=== PATIENT | male | born 1950 | race Caucasian/White ===

== ENCOUNTER 2019-12-09 09:59 | Inpatient (IN) | payer MEDICARE ==
[2019-12-09 10:49] LABS: Basophils % (A) 0 %; Eosinophils # (A) 0.1 k/uL (0-0.7); Eosinophils % (A) 1 %; HCT 47.2 % (39.0-53.0); HGB 15.6 gm/dL (13.0-17.5); Lymphocytes % (A) 20 %; MCH 32.2 pg (25.0-35.0); MCHC 33.1 g/dL (31.0-37.0); MCV 97.3 fL (80.0-100.0); Monocytes % (A) 10 %; Neutrophils # (A) 6.5 k/uL (1.3-7.7); Neutrophils % (A) 65 %; Platelet Count 196 k/uL (150-450); RBC 4.85 m/uL (4.30-5.90); RDW 12.9 % (11.5-15.5)
--- NOTE | 2019-12-09 10:53 | XR ---
EXAMINATION TYPE: XR chest 2V DATE OF EXAM: 12/09/2019 COMPARISON: NONE HISTORY: Shortness of breath TECHNIQUE: Frontal and lateral views of the chest are obtained. FINDINGS: Scattered senescent parenchymal changes noted. Hyperinflation compatible with COPD. No evidence for infiltrate. No evidence for atelectasis. Heart size is stable. Mediastinal structures are stable and grossly unremarkable. No evidence for hilar prominence. Degenerative changes dorsal spine. IMPRESSION: 1. No evidence for acute pulmonary disease.
[2019-12-09] MEDS ORDERED: DILTIAZEM DRIP BOLUS FROM BAG 1 MG SOLN IV ONE (11:01)
--- NOTE | 2019-12-09 11:03 | ED ---
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 Patient states that for the past 3 weeks has had palpitations and sensation of his heart is racing. He states he's progressively become more weak overall denies a focalized weakness. Patient states that he has also progressively gotten more short of breath. He states he is short of breath on exertion.. Denies leg swelling but states that his last EF was 20%. Patient denies use of digoxin, admits to pacemaker in place, ACID. Patient denies chest pain, pain with deep inspiration or history of DVT/PE. Patient has no additional complaints. - Related Data Home Medications Medication Instructions Recorded Confirmed Amiodarone [Cordarone] 200 mg PO DAILY 12/09/19 12/09/19 Aspirin EC [Ecotrin Low Dose] 81 mg PO DAILY 12/09/19 12/09/19 Aspirin EC [Ecotrin] 650 mg PO DAILY 12/09/19 12/09/19 Atorvastatin [Lipitor] 20 mg PO DAILY 12/09/19 12/09/19 Furosemide [Lasix] 40 mg PO DAILY 12/09/19 12/09/19 Potassium Chloride ER [K-Dur 10] 10 meq PO DAILY 12/09/19 12/09/19 carvediloL [Coreg] 3.125 mg PO DAILY 12/09/19 12/09/19 lisinopriL [Zestril] 5 mg PO DAILY 12/09/19 12/09/19 Allergies Allergy/AdvReac Type Severity Reaction Status Date / Time No Known Allergies Allergy Verified 12/09/19 11:17 Review of Systems ROS Statement: Those systems with pertinent positive or pertinent negative responses have been documented in the HPI. ROS Other: All systems not noted in ROS Statement are negative. Past Medical History Past Medical History: Coronary Artery Disease (CAD), Chest Pain / Angina Additional Past Medical History / Comment(s): afib History of Any Multi-Drug Resistant Organisms: None Reported Additional Past Surgical History / Comment(s): heart valve replacement, pacemaker, defibrilator Smoking Status: Never smoker Past Alcohol Use History: Occasional Past Drug Use History: None Reported General Exam - General Exam Comments Initial Comments: General: The patient is awake and alert Eye: +3 mm pupils are equal, round and reactive to light, extra-ocular movements are intact. No nystagmus. There is normal conjunctiva bilaterally. No signs of icterus. Ears, nose, mouth and throat: There are moist mucous membranes and no oral lesions. Neck: The neck is supple, there is no tenderness or JVD. Cardiovascular: There is a regular rate and rhythm. No murmur, rub or gallop is appreciated. Respiratory: Respirations are non-labored, breath sounds are equal. Some rales appreciated at bases. No wheezes, stridor,or rhonchi. Gastrointestinal: Soft, non-distended, non-tender abdomen without masses or organomegaly noted. There is no rebound or guarding present. Musculoskeletal: Normal ROM, no tenderness. Strength 5/5. Sensation intact. Radial and DP pulses equal bilaterally 2+. Neurological: A&O x 3. CN II-XII intact, There are no obvious motor or sensory deficits. Coordination appears grossly intact. Speech is normal. Skin: Skin is warm and dry and no rashes or lesions are noted. No LE edema, or calf pain/swelling Psychiatric: Cooperative, appropriate mood & affect, normal judgment. Limitations: no limitations Course Vital Signs 12/09/19 12/09/19 12/09/19 10:01 10:32 11:22 Temperature 95.0 F L Pulse Rate 123 H 114 H Respiratory 20 20 14 Rate Blood Pressure 108/72 105/72 O2 Sat by Pulse 99 98 Oximetry Medical Decision Making - Medical Decision Making Some effusions noted on CTA no pulmonary embolism. Patient atrial flutter, history of paroxysmal atrial fibrillation patient refuses take anti-quick ablation therapy aside from aspirin. Patient evaluated by cardiology in the emergency department Dr. Andres who states that he will place all further orders. Dr. Andres initated Lasix given patient's elevated BNP and effusions on CT. He altered anticoagulation orders to transition to PO eliquis. One dose of heparin. He will monitor patient closely for further management--no further recommendations at this time. Renean will be admitted to Dr. Zelaya who also evaluated the patient in the ER at 1:20PM. Case discussed with Wesley teixeira who was agreeable to care plan and admission. EKG has no acute findinsg of ischemia however troponin elevated thought to be causes by demand. - Lab Data Result diagrams: 12/09/19 10:31 12/09/19 10:31 Lab Results 12/09/19 12/09/19 12/09/19 Range/Units 10:31 10: 10:31 WBC 10.0 (3.8-10.6) k/uL RBC 4.85 (4.30-5.90) m/uL Hgb 15.6 (13.0-17.5) gm/dL Hct 47.2 (39.0-53.0) % MCV 97.3 (80.0-100.0) fL MCH 32.2 (25.0-35.0) pg MCHC 33.1 (31.0-37.0) g/dL RDW 12.9 (11.5-15.5) % Plt Count 196 (150-450) k/uL Neutrophils % 65 % Lymphocytes % 20 % Monocytes % 10 % Eosinophils % 1 % Basophils % 0 % Neutrophils # 6.5 (1.3-7.7) k/uL Lymphocytes # 2.0 (1.0-4.8) k/uL Monocytes # 1.0 (0-1.0) k/uL Eosinophils # 0.1 (0-0.7) k/uL Basophils # 0.0 (0-0.2) k/uL PT 10.0 (9.0-12.0) sec INR 1.0 (<1.2) APTT 21.4 L (22.0-30.0) sec D-Dimer (<0.60) mg/L FEU Sodium 132 L (137-145) mmol/L Potassium 4.6 (3.5-5.1) mmol/L Chloride 104 (98-107) mmol/L Carbon Dioxide 19 L (22-30) mmol/L Anion Gap 9 mmol/L BUN 32 H (9-20) mg/dL Creatinine 1.40 H (0.66-1.25) mg/dL Est GFR (CKD-EPI)AfAm 60 (>60 ml/min/1.73 sqM) Est GFR (CKD-EPI)NonAf 51 (>60 ml/min/1.73 sqM) Glucose 116 H (74-99) mg/dL Plasma Lactic Acid Myke (0.7-2.0) mmol/L Calcium 8.9 (8.4-10.2) mg/dL Magnesium 2.1 (1.6-2.3) mg/dL Total Bilirubin 0.6 (0.2-1.3) mg/dL AST 60 H (17-59) U/L ALT 82 H (4-49) U/L Alkaline Phosphatase 55 (38-126) U/L Troponin I (0.000-0.034) ng/mL NT-Pro-B Natriuret Pep pg/mL Total Protein 6.2 L (6.3-8.2) g/dL Albumin 3.9 (3.5-5.0) g/dL TSH (0.465-4.680) mIU/L 12/09/19 12/09/19 12/09/19 Range/Units 10:31 10:31 10:31 WBC (3.8-10.6) k/uL RBC (4.30-5.90) m/uL Hgb (13.0-17.5) gm/dL Hct (39.0-53.0) % MCV (80.0-100.0) fL MCH (25.0-35.0) pg MCHC (31.0-37.0) g/dL RDW (11.5-15.5) % Plt Count (150-450) k/uL Neutrophils % % Lymphocytes % % Monocytes % % Eosinophils % % Basophils % % Neutrophils # (1.3-7.7) k/uL Lymphocytes # (1.0-4.8) k/uL Monocytes # (0-1.0) k/uL Eosinophils # (0-0.7) k/uL Basophils # (0-0.2) k/uL PT (9.0-12.0) sec INR (<1.2) APTT (22.0-30.0) sec D-Dimer 1.06 H (<0.60) mg/L FEU Sodium (137-145) mmol/L Potassium (3.5-5.1) mmol/L Chloride (98-107) mmol/L Carbon Dioxide (22-30) mmol/L Anion Gap mmol/L BUN (9-20) mg/dL Creatinine (0.66-1.25) mg/dL Est GFR (CKD-EPI)AfAm (>60 ml/min/1.73 sqM) Est GFR (CKD-EPI)NonAf (>60 ml/min/1.73 sqM) Glucose (74-99) mg/dL Plasma Lactic Acid Myke 1.4 (0.7-2.0) mmol/L Calcium (8.4-10.2) mg/dL Magnesium (1.6-2.3) mg/dL Total Bilirubin (0.2-1.3) mg/dL AST (17-59) U/L ALT (4-49) U/L Alkaline Phosphatase (38-126) U/L Troponin I 0.068 H* (0.000-0.034) ng/mL NT-Pro-B Natriuret Pep pg/mL Total Protein (6.3-8.2) g/dL Albumin (3.5-5.0) g/dL TSH (0.465-4.680) mIU/L 12/09/19 12/09/19 Range/Units 10:31 10:31 WBC (3.8-10.6) k/uL RBC (4.30-5.90) m/uL Hgb (13.0-17.5) gm/dL Hct (39.0-53.0) % MCV (80.0-100.0) fL MCH (25.0-35.0) pg MCHC (31.0-37.0) g/dL RDW (11.5-15.5) % Plt Count (150-450) k/uL Neutrophils % % Lymphocytes % % Monocytes % % Eosinophils % % Basophils % % Neutrophils # (1.3-7.7) k/uL Lymphocytes # (1.0-4.8) k/uL Monocytes # (0-1.0) k/uL Eosinophils # (0-0.7) k/uL Basophils # (0-0.2) k/uL PT (9.0-12.0) sec INR (<1.2) APTT (22.0-30.0) sec D-Dimer (<0.60) mg/L FEU Sodium (137-145) mmol/L Potassium (3.5-5.1) mmol/L Chloride (98-107) mmol/L Carbon Dioxide (22-30) mmol/L Anion Gap mmol/L BUN (9-20) mg/dL Creatinine (0.66-1.25) mg/dL Est GFR (CKD-EPI)AfAm (>60 ml/min/1.73 sqM) Est GFR (CKD-EPI)NonAf (>60 ml/min/1.73 sqM) Glucose (74-99) mg/dL Plasma Lactic Acid Myke (0.7-2.0) mmol/L Calcium (8.4-10.2) mg/dL Magnesium (1.6-2.3) mg/dL Total Bilirubin (0.2-1.3) mg/dL AST (17-59) U/L ALT (4-49) U/L Alkaline Phosphatase (38-126) U/L Troponin I (0.000-0.034) ng/mL NT-Pro-B Natriuret Pep 4750 pg/mL Total Protein (6.3-8.2) g/dL Albumin (3.5-5.0) g/dL TSH 4.680 (0.465-4.680) mIU/L Disposition Clinical Impression: Dyspnea, Elevated brain natriuretic peptide (BNP) level, Atrial flutter, CHF (congestive heart failure) Disposition: ADMITTED IP TO THIS HOSP Condition: Stable Is patient prescribed a controlled substance at d/c from ED?: No Time of Disposition: 13:02 Decision to Admit Reason: Admit from EC Decision Date: 12/09/19 Decision Time: 13:02
[2019-12-09 11:16] LABS: Albumin 3.9 g/dL (3.5-5.0); Calcium 8.9 mg/dL (8.4-10.2); Magnesium 2.1 mg/dL (1.6-2.3); Potassium 4.6 mmol/L (3.5-5.1); Total Bilirubin 0.6 mg/dL (0.2-1.3); Total Protein 6.2 g/dL (6.3-8.2)
[2019-12-09] MEDS: DILTIAZEM 125 MG in SODIUM CHLORIDE 0.9% 100 ML IV SCH (11:25)
[2019-12-09 11:30] LABS: Partial Thromboplastin Time 21.4 sec (22.0-30.0)
[2019-12-09] MEDS ORDERED: HEPARIN SODIUM,PORCINE 5,000 UNIT/ML 1 ML VIAL IV ONE (12:11)
[2019-12-09] MEDS ORDERED: HEPARIN SODIUM,PORCINE 5,000 UNIT/ML 1 ML VIAL IV PRN (12:11)
[2019-12-09] MEDS ORDERED: HEPARIN SOD,PORK IN 0.45% NACL 25,000 UNIT in 0.45% NACL 1 250ML.BAG IV SCH (12:15)
--- NOTE | 2019-12-09 12:33 | CT ---
CT CHEST FOR PULMONARY EMBOLISM. EXAMINATION TYPE: CT chest angio for PE DATE OF EXAM: 12/09/2019 INDICATION: Increasing SOB for one week CT DLP: 632.8 mGycm, Automated exposure control for dose reduction was used. CONTRAST: Patient injected with 100 ml mL of Isovue 370. COMPARISON: None TECHNIQUE: CT of the chest is performed on a spiral scan at 2 mm thick sections. Study is performed with intravenous contrast timed for evaluation for pulmonary embolism. This will limit additional po rtions of the evaluation. 3-D MIP images reconstructed by the technologist are reviewed on the compu ter in the coronal and sagittal planes. FINDINGS: No persistent filling defects are evident to suggest an acute pulmonary embolism. No mediastinal or hilar adenopathy enlarged by CT criteria is evident. The ascending aorta diameter at the level of the main pulmonary artery is 3.9 cm. The main pulmonary artery diameter at the bifur cation is 3.3 cm. Some reflux in the proximal inferior vena cava is noted. Small right pleural effusion is present. Minimal left pleural effusion is present. Some compressive a telectasis is likely present at the right lung base. A 1 cm area of pneumonitis is in the posterior medial right lung base. Series [address] section through the upper abdomen are unremarkable. IMPRESSIONS: 1. No acute pulmonary embolism 2. Small right and minimal left pleural effusions. Some adjacent atelectasis may be present. 3. Some mild pneumonitis change may be in the posterior right lung. Follow-up exam can be performed t o evaluate for resolution.
[2019-12-09] MEDS ORDERED: NALOXONE 0.4 MG/ML 1 ML VIAL IV PRN (12:59)
[2019-12-09] MEDS: SODIUM CHLORIDE 0.9% 500 ML 500 ML IV SCH (13:03)
[2019-12-09] MEDS: FUROSEMIDE 10 MG/ML 4 ML VIAL IV SCH ×2 (13:04→20:32)
[2019-12-09] MEDS: APIXABAN 5 MG TAB PO SCH ×2 (13:04→20:32)
[2019-12-09] MEDS: carvediloL 6.25 MG TAB PO SCH (17:27)
--- NOTE | 2019-12-09 18:39 | CONS ---
CONSULTATION Mr. Falcon is a 69-year-old male with a known history of severe nonischemic cardiomyopathy, status post bioprosthetic aortic valve replacement, an ICD implantation as well history of paroxysmal atrial fibrillation, who has been followed in the past by Dr. Lombardo. He was seen in our office about 2 months ago and for the last week or so, he has been complaining of progressive dyspnea on exertion with orthopnea and PND. He came into the office today and had an echocardiogram that revealed a severely impaired left ventricular systolic function. He was in atrial flutter. In view of that, he was referred to the emergency room. The patient was evaluated in the emergency room. He has been complaining of the progressive dyspnea as noted, much worse than his baseline. He did not note any peripheral edema. He had clear PND orthopnea. He had no fever. He has occasional cough when he lays flat. He has no chest discomfort. He feels some palpitation, but he is not aware of the arrhythmia. He denies any dizziness or syncope. He had an ICD placed in the past and ejection fraction was in the range of 20% in the past. He was in sinus mechanism in September of this year. His coronary risk factors positive for hypertension. He is a nondiabetic. He is a non smoker. MEDICATIONS: His medication at home included amiodarone 200 mg daily, aspirin once a day, carvedilol 3.125 mg twice a day, furosemide 40 mg daily, lisinopril 5 mg daily, and potassium. REVIEW OF SYSTEMS: RESPIRATORY SYSTEM: He has progressive dyspnea and cough. No history of documented obstructive lung disease. GI system: No recent GI bleeding. No peptic ulcer disease. system: No dysuria or hematuria. Nervous system: No history of seizure. PHYSICAL EXAMINATION: 69-year-old male, alert, oriented, no apparent distress. Blood pressure 105/70 with a heart rate in the one teens. HEAD: Normocephalic. Eyes: Sclerae anicteric. NECK with increased jugular venous pressure. LUNGS with rales at the bases. HEART: Irregularly irregular. S1, S2. No S3 with systolic murmur at the base 2/6. No diastolic murmur. No rub. ABDOMEN: Soft, nontender. Positive bowel sounds. No organomegaly. EXTREMITIES: +1 edema bilaterally. LAB DATA: Revealed an NT proBNP of 4750. Troponin 0.068. AST of 60, ALT of 82. BUN and creatinine 32 and 1.4, potassium of 4.6. His D-dimer was 1.06. His TSH of 4.680. Hemoglobin 15.6, white blood cell of 10,000. EKG revealed atrial flutter with an intraventricular conduction delay. IMPRESSION: 1. Symptoms of congestive heart failure in a patient with known history of severe nonischemic cardiomyopathy. 2. Atrial flutter-fibrillation documented in the past. 3. Patient was not anticoagulated. 4. He declined anticoagulation in the past. 5. Status post aortic valve replacement. 6. Status post ICD implantation. 7. History of hypertension. RECOMMENDATIONS: I will start the patient on Eliquis 5 mg twice a day. He will receive intravenous diuretics. I will start him on the Coreg and increase the dose of his amiodarone. We will follow his liver function closely. I will hold on starting his JARVIS inhibitor at this point and hoping to start Entresto on the next 48 hours. I will review the results of his echocardiogram that was performed today in the office. I have discussed those findings with the patient and his family and depending on his progress, further recommendations will be made. Thank you for this consult. We will follow with you. MMODL / IJN: [id number] /
[2019-12-09] MEDS ORDERED: ALPRAZolam 0.25 MG TAB PO PRN (18:48)
[2019-12-09] MEDS ORDERED: HYDROcodone/APAP 5-325MG 1 EACH TAB PO PRN (18:48)
[2019-12-09] MEDS: AMIODARONE 200 MG TAB PO SCH (20:32)
--- NOTE | 2019-12-09 21:50 | HP ---
HISTORY AND PHYSICAL DATE OF SERVICE: 12/09/2019 CHIEF COMPLAINT: Shortness of breath. HISTORY OF PRESENT ILLNESS: This 69-year-old gentleman with a past medical history of atrial flutter/fibrillation, history of DJD, history of AICD, history of cardiac valve replacement, history of pacemaker, tonsillectomy, history of aortic valve replacement, being followed by Dr. Marquez as well as Dr. Don in the outpatient setting, was complaining of shortness of breath. Ischemic cardiomyopathy was thought to be the cause of shortness of breath and CHF. The patient's echocardiogram revealed severe impairment of left ventricular function, about 20%, and the patient was sent to the emergency room. The patient is admitted for further evaluation and treatment. There is no history of any fever, rigor or chills. No history of headache, loss of consciousness, seizures at this time. PAST MEDICAL HISTORY: History of atrial fibrillation, history of DJD, history of AICD, cardiac valve and joint replacement. HOME MEDICATIONS: 1. Zestril 5 mg p.o. daily. 2. Coreg 3.125 mg daily. 3. K-Dur 10 mEq positive. 4. Lasix 40 mg daily. 5. Lipitor 20 mg daily. 6. Ecotrin 650 mg daily. 7. Ecotrin 81 mg. 8. Cordarone 200 mg p.o. b.i.d. ALLERGIES: NONE. FAMILY HISTORY: No history of heart disease or strokes in the family. SOCIAL HISTORY: Occasional alcohol intake. REVIEW OF SYSTEMS: ENT: No diminished hearing. No diminished vision. CARDIOVASCULAR SYSTEM: As mentioned earlier. RESPIRATORY SYSTEM: As mentioned earlier. GI: No nausea, vomiting. : No dysuria or retention. NERVOUS SYSTEM: No numbness, weakness. ALLERGY/IMMUNOLOGY: No asthma, hayfever. MUSCULOSKELETAL: As mentioned earlier. HEMATOLOGY/ONCOLOGY: No history of anemia. ENDOCRINE: No history of diabetes, hypothyroidism. CONSTITUTIONAL: As mentioned earlier. DERMATOLOGY: Negative. RHEUMATOLOGY: Negative. PSYCHIATRY: As mentioned earlier. PHYSICAL EXAMINATION: Patient alert and oriented x3. Pulse 104, blood pressure 142/68, respiration 18, temperature 97.7, pulse ox 99% on room air. HEENT: Conjunctivae normal. Oral mucosa moist. NECK: Jugular venous distention at the root of the neck. CARDIOVASCULAR SYSTEM: S1, S2 muffled. No S3. No S4. RESPIRATORY SYSTEM: Breath sounds diminished at the bases. A few scattered rhonchi and crackles. ABDOMEN: Soft, obese, non-tender. No mass palpable. LEGS: Minimal edema. NERVOUS SYSTEM: Higher functions as mentioned earlier. Moves all 4 limbs. No focal motor or sensory deficit. LYMPHATICS: No lymph node palpable in neck, axillae or groin. SKIN: No ulcer, rash, bleeding. JOINTS: No active deforming arthropathy. LABS: CBC within normal limits. D-dimer is 1.06. Sodium is 132, potassium 4.6, glucose 116, AST 160, ALT is 82. Troponin 0.068. ASSESSMENT: 1. Congestive heart failure, acute exacerbation, with acute on chronic systolic dysfunction with ischemic cardiomyopathy, ejection fraction about 20%. 2. Hyponatremia. 3. Increased creatinine with chronic kidney disease, stage 3. 4. Troponin 0.068, indeterminate. 5. Elevated AST, ALT possibly congestive hepatopathy. 6. History of atrial fibrillation, chronic, paroxysmal, flutter/fibrillation. 7. History of degenerative joint disease. 8. History of automated implantable cardioverter defibrillator. 9. History of aortic valve replacement. 10.History of pacemaker. 11.History of degenerative joint disease with bilateral hip arthroplasty. 12.Remote history of nicotine dependence. 13.Obesity with body mass of 32.5. 14.FULL CODE. RECOMMENDATIONS AND DISCUSSION: In this 69-year-old gentleman who presented with multiple complex medical issues, we will monitor the patient closely, continue the current medications, continue symptomatic treatment. Will continue with intravenous diuretics 40 mg IV q.8. Closely follow with Cardiology. Resume the home medications. DVT prophylaxis. The patient is on Eliquis. We will monitor the fluid/electrolyte balance closely. The prognosis is guarded because of multiple complex medical issues. Further recommendations to follow. Two-D echo with Doppler has been ordered. Will also obtain a UA with micro. Chest x- ray was ordered. Chest CT is negative for pulmonary embolism. EKG showed atrial flutter/fibrillation. MMODL / IJN: [id number] /
[2019-12-09 22:28] LABS: Appearance,Urine Clear (Clear); Bilirubin,Urine Negative (Negative); Blood,Urine Negative (Negative); Color,Urine Light Yellow; Glucose,Urine (UA) Negative (Negative); Ketones,Urine Negative (Negative); Leukocyte Esterase,Urine Negative (Negative); Nitrite,Urine Negative (Negative); Protein,Urine Negative (Negative); Specific Gravity,Urine 1.024 (1.001-1.035); Urobilinogen,Urine <2.0 mg/dL (<2.0)
[2019-12-10] MEDS: DILTIAZEM 125 MG in SODIUM CHLORIDE 0.9% 100 ML IV SCH (03:45)
[2019-12-10] MEDS: FUROSEMIDE 10 MG/ML 4 ML VIAL IV SCH ×3 (03:45→20:14)
[2019-12-10] MEDS: PANTOPRAZOLE 40 MG TABLET PO SCH (06:36)
[2019-12-10] MEDS: carvediloL 6.25 MG TAB PO SCH ×2 (06:36→17:26)
[2019-12-10] MEDS: ATORVASTATIN 20 MG TAB PO SCH (08:55)
[2019-12-10] MEDS: AMIODARONE 200 MG TAB PO SCH ×2 (08:55→20:14)
[2019-12-10] MEDS: APIXABAN 5 MG TAB PO SCH ×2 (08:55→20:14)
[2019-12-10] MEDS ORDERED: lisinopriL 5 MG TAB PO SCH (09:00)
[2019-12-10] MEDS ORDERED: ASPIRIN 81 MG PO SCH (09:00)
--- NOTE | 2019-12-10 11:50 | PN ---
PROGRESS NOTE Mr. Falcon is a 69-year-old male with known history of severe nonischemic cardiomyopathy, history of paroxysmal atrial fibrillation, history of aortic valve replacement status post ICD implantation who presented with symptoms of progressive dyspnea and congestive heart failure. He is feeling slightly better today. His breathing is slightly better. He denies any chest pain. He is able to lay flat. He has no chest pain. No dizziness. He has no palpitation. He has continued to be in atrial flutter/fibrillation was controlled ventricular response. Continue on amiodarone 200 mg twice a day, Eliquis 5 mg twice a day, aspirin once a day, diltiazem drip, Lipitor 20 mg daily, Coreg 6.5 mg twice a day, Lasix 40 mg IV q.8 hours and Protonix. He did not receive his lisinopril. PHYSICAL EXAMINATION: Blood pressure running in the 90s to 120s with a heart rate in the 80s. LUNGS: Few crackles at the bases. HEART: Irregular regular S1-S2. No S3 with systolic murmur at the base. No diastolic murmur, no rub. ABDOMEN: Soft, nontender. EXTREMITIES: No significant edema. LAB DATA: Pending from this morning. IMPRESSION: 1. Congestive heart failure with severe nonischemic cardiomyopathy. 2. Atrial flutter, was not anticoagulated in the past. 3. Status post ICD implantation. 4. Status post aortic valve replacement. 5. Prior history of hypertension. RECOMMENDATION: I will hold his JARVIS inhibitor at this time. We will obtain echocardiogram with Doppler. I will stop his IV Cardizem and his aspirin. The troponin elevation could be related to his congestive heart failure. If his blood pressure is stable, I will add Entresto to his regimen. I will continue IV diuretic for another 24 hours. If he remains in atrial flutter, he will be evaluated to undergo a ZAN guided cardioversion at a later time. MMODL / IJN: [id number] /
[2019-12-10 12:03] LABS: Basophils # (A) 0.1 k/uL (0-0.2); Basophils % (A) 1 %; Eosinophils # (A) 0.1 k/uL (0-0.7); Eosinophils % (A) 1 %; HCT 46.1 % (39.0-53.0); HGB 15.1 gm/dL (13.0-17.5); Lymphocytes # (A) 2.5 k/uL (1.0-4.8); Lymphocytes % (A) 25 %; MCH 31.9 pg (25.0-35.0); MCHC 32.7 g/dL (31.0-37.0); MCV 97.4 fL (80.0-100.0); Monocytes # (A) 0.8 k/uL (0-1.0); Monocytes % (A) 8 %; Neutrophils # (A) 6.3 k/uL (1.3-7.7); Neutrophils % (A) 62 %; Platelet Count 199 k/uL (150-450); RBC 4.74 m/uL (4.30-5.90); RDW 12.9 % (11.5-15.5); WBC 10.2 k/uL (3.8-10.6)
[2019-12-10 12:15] LABS: Potassium 4.5 mmol/L (3.5-5.1); Total Bilirubin 0.7 mg/dL (0.2-1.3); Total Protein 6.2 g/dL (6.3-8.2)
[2019-12-10] MEDS: POTASSIUM CHLORIDE ER 10 MEQ TAB.ER.PRT PO SCH (12:42)
[2019-12-10] MEDS: SODIUM CHLORIDE 0.9% 500 ML 500 ML IV SCH (12:46)
[2019-12-10] MEDS ORDERED: IPRATROPIUM-ALBUTEROL 3 ML NEB INHALATION PRN (12:56)
--- NOTE | 2019-12-10 13:44 | XR ---
EXAMINATION TYPE: XR chest 1V portable DATE OF EXAM: 12/10/2019 HISTORY: Shortness of breath. COMPARISON: 12/09/2019 TECHNIQUE: Single view of the chest is submitted. FINDINGS: Demonstrated are scattered senescent parenchymal change. There is no evidence for focal infiltrate. The heart is stable. Hilar and mediastinal structures are within normal limits. Degenerative changes are seen of the dorsal spine. IMPRESSION: 1. Chronic changes without evidence for acute pulmonary disease.
[2019-12-10] MEDS: IPRATROPIUM-ALBUTEROL 3 ML NEB INHALATION SCH ×2 (14:13→19:36)
--- NOTE | 2019-12-10 16:02 | PN ---
PROGRESS NOTE DATE OF SERVICE: 12/10/2019 This 69-year-old gentleman who was admitted with CHF, acute exacerbation, also had acute on chronic systolic dysfunction and ejection fraction was found to be 20%. The patient had significant shortness of breath, also. The patient has a remote history of smoking. Repeat x-ray done today showed some fluid abnormality. Otherwise, the patient is being closely monitored at this time. The patient is on IV diuretics. Cardiology is following the patient closely. Past medical history reviewed. REVIEW OF SYSTEMS: CARDIOVASCULAR SYSTEM: As mentioned earlier. RESPIRATORY SYSTEM: As mentioned earlier. GI: As mentioned earlier. : No dysuria or retention. NERVOUS SYSTEM: No numbness, weakness. CURRENT MEDICATIONS: 1. [place]. 2. DuoNeb. 3. Xanax. 4. Cordarone. 5. Eliquis. 6. Lipitor. 7. Coreg. 8. Lasix 40 mg IV q.8. 9. Narcan. 10.Protonix. 11.K-Dur. Doses are reviewed. PHYSICAL EXAMINATION: Alert and oriented x3. Pulse is 70, blood pressure 105/70, respirations 16, temperature normal, pulse ox 92% on 2 L. HEENT: Conjunctivae normal. Oral mucosa moist. NECK: No jugular venous distention. No carotid bruit. No lymph node enlargement. CARDIOVASCULAR SYSTEM: S1, S2 muffled. No S3. No S4. RESPIRATORY SYSTEM: Breath sounds diminished at the bases. A few scattered rhonchi and crackles. Expiratory wheezing also present. ABDOMEN: Soft, obese, non-tender. LEGS: No edema. No swelling. NERVOUS SYSTEM: No focal deficit. LABS: CBC within normal limits. Sodium is 133, creatinine is 1.46. Troponin noted. ASSESSMENT: 1. Congestive heart failure, acute exacerbation, with acute on chronic systolic dysfunction, ischemic cardiomyopathy, ejection fraction 20%. 2. Hyponatremia. 3. Possible chronic obstructive pulmonary disease, acute exacerbation. 4. Increased creatinine with chronic kidney disease, stage 3. 5. Troponin 0.06, indeterminate. 6. Elevated AST and ALT, possibly congestive hepatopathy. 7. History of atrial fibrillation, chronic paroxysmal atrial fibrillation/flutter. 8. History of degenerative joint disease. 9. History of automated implantable cardioverter defibrillator. 10.History of aortic valve replacement. 11.History of pacemaker. 12.History of degenerative joint disease and bilateral hip arthroplasty. 13.Remote history of nicotine dependence. 14.Obesity with body mass index 32.5. 15.FULL CODE. RECOMMENDATIONS AND DISCUSSION: In this 69-year-old gentleman who presented with multiple complex medical issues, we will monitor the patient closely, continue the current medications, continue with symptomatic treatment. Otherwise at this time I would recommend continuing the diuretics. I would also recommend a course of bronchodilators because the patient becomes short of breath. CT angio showed no evidence of any pulmonary embolism. Pneumonitis was suspected. I would also obtain consultation from Dr. Cruz for evaluation of COPD. MMODL / IJN: [id number] /
[2019-12-11] MEDS: FUROSEMIDE 10 MG/ML 4 ML VIAL IV SCH ×2 (04:01→13:08)
[2019-12-11] MEDS: carvediloL 6.25 MG TAB PO SCH (06:28)
[2019-12-11] MEDS: PANTOPRAZOLE 40 MG TABLET PO SCH (06:28)
[2019-12-11] MEDS: IPRATROPIUM-ALBUTEROL 3 ML NEB INHALATION SCH ×3 (08:35→19:22)
[2019-12-11] MEDS: APIXABAN 5 MG TAB PO SCH ×2 (08:39→20:27)
[2019-12-11] MEDS: AMIODARONE 200 MG TAB PO SCH ×2 (08:39→20:27)
[2019-12-11] MEDS: POTASSIUM CHLORIDE ER 10 MEQ TAB.ER.PRT PO SCH (08:40)
[2019-12-11] MEDS: ATORVASTATIN 20 MG TAB PO SCH (08:40)
[2019-12-11 09:22] LABS: Calcium 8.9 mg/dL (8.4-10.2); Potassium 4.1 mmol/L (3.5-5.1)
[2019-12-11 09:46] LABS: Basophils # (A) 0.1 k/uL (0-0.2); Basophils % (A) 1 %; Eosinophils # (A) 0.1 k/uL (0-0.7); Eosinophils % (A) 1 %; HCT 44.7 % (39.0-53.0); Lymphocytes # (A) 1.9 k/uL (1.0-4.8); Lymphocytes % (A) 21 %; MCH 32.4 pg (25.0-35.0); MCHC 33.5 g/dL (31.0-37.0); MCV 96.5 fL (80.0-100.0); Mean Platelet Volume 7.2; Monocytes # (A) 0.7 k/uL (0-1.0); Monocytes % (A) 7 %; Neutrophils # (A) 6.1 k/uL (1.3-7.7); Neutrophils % (A) 67 %; Platelet Count 203 k/uL (150-450); RBC 4.64 m/uL (4.30-5.90); RDW 13.2 % (11.5-15.5); WBC 9.2 k/uL (3.8-10.6)
[2019-12-11] MEDS: SODIUM CHLORIDE 0.9% 500 ML 500 ML IV SCH (10:39)
[2019-12-11 13:50] VITALS: BMI 30.9
--- NOTE | 2019-12-11 14:20 | PN ---
PROGRESS NOTE Mr. Falcon is a 69-year-old male with a history of severe nonischemic cardiomyopathy status post aortic valve replacement, paroxysmal atrial fibrillation, atrial flutter, who presented with symptoms for worsening dyspnea. He has continued to be dyspneic although slightly better today. He denies any chest pain. He continues to be in atrial flutter with episode of rapid ventricular response. He denies any dizziness or palpitation. He denies any nausea. He continues to be on amiodarone 200 mg twice a day, Eliquis 5 mg twice a day, Lipitor 20 mg daily, Coreg 6.25 mg twice a day, Lasix 40 mg IV q.8 hours. PHYSICAL EXAMINATION: Blood pressure running in the 90s and 100s with a heart rate in the low 100s. Lungs, no wheezes. Heart irregular regular. S1-S2. No S3 with systolic murmur, no diastolic murmur. Abdomen soft, nontender. Extremities: No significant edema. LAB DATA: Revealed BUN and creatinine 34 and 1.5, potassium 4.1, hemoglobin 15. IMPRESSION: 1. Symptoms of congestive heart failure with severe nonischemic cardiomyopathy. 2. Status post aortic valve replacement. 3. Atrial flutter. 4. Status post ICD implantation. RECOMMENDATION: I will switch him from Coreg to Toprol-XL to control the rate without dropping the blood pressure as much and give him a trial with Entresto. I will also switch him to oral diuretics. Depending on his progress, further recommendations will be made. Patient may require a ZAN guided cardioversion. I would favor to hold on that until he is anticoagulated and stabilized. I have discussed with the patient those findings. MMODL / IJN: [id number] /
--- NOTE | 2019-12-11 15:11 | PN ---
PROGRESS NOTE DATE OF SERVICE: 12/11/2019 This 69-year-old gentleman who was admitted with congestive heart failure, acute exacerbation, also had possible COPD also. The patient also has some shortness of breath. Cardiology following the patient closely. The most recent chest x-ray which was done yesterday was reviewed personally by me showed some increased bronchovascular markings on the right lower lobe. Past medical history reviewed. REVIEW OF SYSTEMS: CARDIOVASCULAR SYSTEM: No angina. No palpitations. RESPIRATORY: As mentioned earlier. GI no nausea or vomiting. no dysuria. NERVOUS SYSTEM: No numbness or weakness. CURRENT MEDICATIONS: Reviewed and include: 1. Flint. 2. DuoNeb. 3. Xanax. 4. Cordarone. 5. Eliquis. 6. Lipitor. 7. Lasix. 8. Toprol-XL. 9. Protonix. 10.Entresto. PHYSICAL EXAM: Patient is alert, oriented x3. Pulse is 109. Blood pressure is 88/64, respiration 18, temperature 97.3, pulse ox 99% on room air. HEENT: Conjunctivae normal. NECK: No JVD. CARDIOVASCULAR: S1, S2 muffled. RESPIRATORY: Breath sounds diminished in the bases. A few scattered rhonchi and crackles, especially in the left lower lobe. ABDOMEN: Soft. Obese. Nontender. No mass palpable. LEGS: No edema. No swelling. NERVOUS SYSTEM: No focal deficits. LABORATORY DATA: CBC within normal limits. Sodium 133, creatinine is 1.55. Troponin noted. ASSESSMENT: 1. Congestive heart failure, acute exacerbation with acute on chronic systolic dysfunction, ischemic cardiomyopathy, ejection fraction 20%. 2. Hyponatremia. 3. Possible chronic obstructive pulmonary disease, acute exacerbation. 4. Increased creatinine with chronic kidney stage 3 with acute renal failure with acute tubular necrosis. 5. Troponin 0.06 indeterminate. 6. Elevated AST/ALT possibly congestive hepatopathy. 7. History of chronic atrial fibrillation/flutter paroxysmal. 8. History of degenerative joint disease. 9. History AICD. 10.History of aortic valve replacement. 11.History of pacemaker. 12.History of degenerative joint disease and bilateral hip arthroplasty. 13.Remote history of nicotine dependence. 14.Obesity with body mass index of 32.5. 15.FULL CODE. RECOMMENDATIONS AND DISCUSSION: In this 69-year-old gentleman who presented with multiple complex medical issues, we will monitor the patient closely, continue the current medications, symptomatic treatment. Otherwise, at this time, I recommend continue with bronchodilators and Cardiology and pulmonology consultations. Lasix has been turned to p.o. We will continue to monitor. The troponins are noted. The prognosis guarded. Recommend outpatient PFT. Further recommendations to follow. MMKAYLAL / OPALN: [id number] /
--- NOTE | 2019-12-11 15:20 | CONS ---
CONSULTATION PULMONARY/CRITICAL CARE CONSULTATION: DATE OF SERVICE: 12/11/2019 This is a 69-year-old male with a history of previous aortic valve replacement in 2007, atrial fibrillation, CAD, angina pectoris and pacemaker defibrillator placement, who comes into the hospital complaining of being short of breath. He apparently was sent in by his glass blower helper for evaluation. He states for the last three weeks he has been having palpitations and sensations that his heart was racing. He has become progressively more weak. He has also complained of being short of breath. The shortness of breath occurs only on exertion, not at rest. He apparently denies leg swelling. He states his ejection fraction is 20%. His glass blower helper is Dr. Don. The patient sometimes feels like he has lots of mucus in his chest. States that typically when he coughs, and he brings up the mucus, he feels better subsequent to that. He denies any GI complaints including nausea, vomiting, diarrhea, or abdominal pain. He denies all genitourinary complaints. He did smoke some 47 years ago. He has not smoked obviously in some time. When he did smoke it was only just for a few years. Never was a heavy smoker. Denies a history of any chronic intrinsic pulmonary disease such as asthma, emphysema, COPD, bronchitis, etc. HOME MEDICATIONS: Reviewed. He is on amiodarone, aspirin, Lipitor, Lasix, potassium chloride, Coreg, and Zestril. ALLERGIES: Denied. MEDICAL HISTORY: Includes atrial fibrillation, cardiomyopathy, CAD, angina, aortic valve replacement and status post defibrillator/pacemaker insertion. SURGICAL HISTORY: Includes the pacemaker defibrillator and aortic valve replacement. SOCIAL HISTORY: Positive for remote tobacco use of only a couple years. He drinks occasionally. Denies any illicit drug use. FAMILY HISTORY: Noncontributory. Mother and father were healthy. REVIEW OF SYSTEMS: CONSTITUTIONAL: Negative. NEUROLOGIC: Negative. HEENT: Negative. CARDIOVASCULAR: Palpitations, tachycardia, heart racing, without chest pain. PULMONARY: Shortness of breath on exertion, occasional excess phlegm production. GI: Negative. : Negative. RHEUMATOLOGIC: Negative. IMMUNOLOGIC: Negative. ENDOCRINOLOGIC: Negative. DERMATOLOGIC: Negative. PHYSICAL EXAMINATION: VITAL SIGNS: Current vital signs are reviewed. His temperature is 97.6, heart rate 103, respiratory rate 18, blood pressure 86/48, mean 60, saturations are 98% on room air. Appears in no acute distress. HEENT: Examination is grossly unremarkable. NECK: Supple. Full range of motion. No adenopathy or thyromegaly. Neck veins are flat. CARDIOVASCULAR: Examination reveals a regular rhythm rate. Appears that the patient may be in atrial fibrillation. Heart rate is about 90. S1, S2 normal. Heart sounds are distant. LUNGS: Completely clear breath sounds. There is no wheezes, rhonchi, or crackles. Breath sounds equal bilaterally. ABDOMEN: Soft. Bowel sounds are heard. EXTREMITIES are intact. No cyanosis, clubbing, or edema. SKIN: Without rash. NEUROLOGIC: Examination is brief but nonfocal. LABS: Reviewed. CBC is completely normal. PT/INR normal. PTT 21.4. D-dimer 0.06. Sodium 133, potassium 4.1, chloride 98, CO2 26, anion gap 9, BUN and creatinine 34 and 1.50. Cardiac enzymes are 0.068 and 0.078. His N-terminal proBNP was 4750. Urine was negative. The patient had a chest x-ray on December 08. It showed no evidence of acute pulmonary disease. CT angiogram showed no acute pulmonary embolism. There is minimal left pleural effusion. There is some adjacent atelectasis and some mild pneumonitis in the posterior right lung base. Another chest x-ray done on December 09 shows chronic changes without acute disease. ASSESSMENT: 1. Shortness of breath, palpitations, racing heartbeat, all likely cardiac in origin. Doubt significant pulmonary disease at this time. 2. Occasional sensations of excess mucus which is cleared by coughing, possibly related to postnasal drip/sinus disease. 3. History of aortic valve replacement. 4. Status post AICD pacemaker placement. 5. No evidence of pulmonary embolism on CT angiogram. 6. History of coronary artery disease. 7. History of angina. 8. Atrial fibrillation. PLAN: From our perspective, the patient does not appear to have any significant pulmonary disease. The patient does describe occasional cough and phlegm production, which may be more sinus related to an actual mucus from the lung. Nonetheless, the patient states that once he does cough and bring up some phlegm, he does feel better. He smoked remotely. Only smoked for a few years. Doubt significant pulmonary disease. Additional recommendations and suggestions are forthcoming. MMODL / IJN: [id number] /
--- NOTE | 2019-12-11 16:16 | ECHOF ---
Referral Reason:cm MEASUREMENTS -------- HEIGHT: 180.3 cm WEIGHT: 108.9 kg BP: IVSd: 0.9 cm (0.6 - 1.1) LVIDd: 6.1 cm (3.9 - 5.3) LVPWd: 1.1 cm (0.6 - 1.1) EDV(Teich): 185 ml IVSs: 1.1 cm LVIDs: 5.7 cm LVPWs: 1.9 cm %IVS Thck: 19 % ESV(Teich): 163 ml EF(Teich): 12 % %FS: 6 % SV(Teich): 23 ml RVIDd: 3.5 cm (< 3.3) RA Diam: 4.9 cm MR Vmax: 3.63 m/s MR maxP.83 mmHg AV Vmax: 2.28 m/s AV maxP.35 mmHg AV Vmax: 2.33 m/s AV Vmean: 1.92 m/s AV maxP.47 mmHg AV meanP.90 mmHg AV Env.Ti: 194 ms AV VTI: 37.5 cm TR Vmax: 2.95 m/s TR maxP.83 mmHg RAP: 5.00 mmHg RVSP: 39.83 mmHg FINDINGS -------- The rhythm appears to be atrial flutter. AICD This was a technically difficult study with suboptimal views. The left ventricle is mildly dilated. Left ventricular wall thickness is normal. There is severe global hypokinesis of LV . Overall left ventricular systolic function is severely impaired with, an EF < 20%. The right ventricle is mildly enlarged. The left atrium was not well visualized. RA appears enlarged. 5.0mg OF [place] UTLIZED: 2 OR MORE WALL SEGMENTS NOT VISUALIZED. Peak/mean gradient across the Aortic Valve is 22.47mmHg / 15.90mmHg. Normally functioning bioprosth etic valve. The mitral valve is normal. The mitral valve leaflets are mildly thickened. [id number] mitr al regurgitation is present. The tricuspid valve appears structurally normal. Moderate tricuspid regurgitation present. There is mild pulmonary hypertension. The right ventricular systolic pressure, as measured by Doppler, is 39.83mmHg. The pulmonic valve was not well visualized. There is no pulmonic regurgitation present. The aortic root size is normal. IVC Not well visulized. There is no pericardial effusion. CONCLUSIONS -------- 1. The left ventricle is mildly dilated. 2. Left ventricular wall thickness is normal. 3. There is severe global hypokinesis of LV . 4. Overall left ventricular systolic function is severely impaired with, an EF < 20%. 5. The right ventricle is mildly enlarged. 6. RA appears enlarged. 7. Peak/mean gradient across the Aortic Valve is 22.47mmHg / 15.90mmHg. 8. Normally functioning bioprosthetic valve. 9. The mitral valve leaflets are mildly thickened. 10. Fkll-sg-[id number] mitral regurgitation is present. 11. Moderate tricuspid regurgitation present. 12. There is mild pulmonary hypertension. 13. There is no pericardial effusion. MATERIAL YARD CLERK: Angeles De Los Santos RDCS
[2019-12-11] MEDS: FUROSEMIDE 40 MG TAB PO SCH (16:39)
[2019-12-11] MEDS ORDERED: TEMAZEPAM 15 MG CAP PO PRN (20:07)
[2019-12-11] MEDS: METOPROLOL SUCCINATE (ER) 25 MG TAB.ER.24H PO SCH (20:27)
[2019-12-11] MEDS: SACUBITRIL/VALSARTAN 24 MG-26 MG TABLET PO SCH (20:27)
[2019-12-12] MEDS: PANTOPRAZOLE 40 MG TABLET PO SCH (06:32)
[2019-12-12 07:45] LABS: Basophils % (A) 1 %; Eosinophils # (A) 0.1 k/uL (0-0.7); Eosinophils % (A) 1 %; HCT 45.6 % (39.0-53.0); HGB 15.1 gm/dL (13.0-17.5); Lymphocytes # (A) 2.3 k/uL (1.0-4.8); Lymphocytes % (A) 27 %; MCH 32.1 pg (25.0-35.0); MCHC 33.1 g/dL (31.0-37.0); MCV 97.1 fL (80.0-100.0); Mean Platelet Volume 7.1; Monocytes # (A) 0.7 k/uL (0-1.0); Monocytes % (A) 8 %; Neutrophils # (A) 5.2 k/uL (1.3-7.7); Neutrophils % (A) 60 %; Platelet Count 200 k/uL (150-450); WBC 8.7 k/uL (3.8-10.6)
[2019-12-12 07:58] LABS: Calcium 8.7 mg/dL (8.4-10.2); Potassium 4.4 mmol/L (3.5-5.1)
[2019-12-12] MEDS: FUROSEMIDE 40 MG TAB PO SCH ×2 (08:55→16:06)
[2019-12-12] MEDS: ATORVASTATIN 20 MG TAB PO SCH (08:55)
[2019-12-12] MEDS: AMIODARONE 200 MG TAB PO SCH ×2 (08:55→20:35)
[2019-12-12] MEDS: POTASSIUM CHLORIDE ER 10 MEQ TAB.ER.PRT PO SCH (08:55)
[2019-12-12] MEDS: APIXABAN 5 MG TAB PO SCH ×2 (08:55→20:35)
[2019-12-12] MEDS: SACUBITRIL/VALSARTAN 24 MG-26 MG TABLET PO SCH ×2 (08:56→20:35)
[2019-12-12] MEDS: METOPROLOL SUCCINATE (ER) 25 MG TAB.ER.24H PO SCH ×2 (08:56→20:35)
[2019-12-12] MEDS: IPRATROPIUM-ALBUTEROL 3 ML NEB INHALATION SCH ×3 (09:09→20:29)
[2019-12-12 09:44] VITALS: RESP 18
--- NOTE | 2019-12-12 10:31 | PN ---
PROGRESS NOTE Mr. Falcon is a 69-year-old male with known history of severe nonischemic cardiomyopathy, status post aortic valve replacement, ICD implantation with paroxysmal atrial fibrillation who presented with atrial flutter and rapid ventricular response and symptoms of congestive heart failure. He is feeling better overall with improvement in his energy and his breathing, although he continues to be dyspneic. He denies any dizziness or palpitation. He denies any nausea. He continues to be on amiodarone 200 mg twice a day, Eliquis 5 mg twice a day, Lasix 40 mg twice a day, Lipitor 20 mg daily, metoprolol succinate 25 mg twice a day, Entresto 24/26 mg daily. PHYSICAL EXAMINATION: Blood pressure running in the 90s with a heart rate in the 80s. LUNGS: Clear. HEART: Irregular irregular S1, S2. No S3 with systolic murmur heard at the base. No diastolic murmur. No rub. ABDOMEN: Soft and nontender. EXTREMITIES: No edema. LAB DATA: BUN and creatinine 38 and 1.53. Potassium 4.4, sodium 131, hemoglobin 15.1. IMPRESSION: 1. Congestive heart failure with severe nonischemic cardiomyopathy. 2. Status post aortic valve replacement. 3. Atrial flutter. 4. Status post implantable cardioverter defibrillator implantation. 5. Chronic kidney disease. RECOMMENDATION: I will continue present therapy. Continue to increase his level of activity. Follow his renal function. If he remains stable, he may be able to be discharged home tomorrow. Otherwise, further adjustment of his medical regimen will be needed. As an outpatient, if he remains in atrial flutter, he will undergo cardioversion with the hope to restore sinus mechanism. MMODL / IJN: [id number] /
[2019-12-12] MEDS: SODIUM CHLORIDE 0.9% 500 ML 500 ML IV SCH (11:45)
--- NOTE | 2019-12-12 16:27 | PN ---
PROGRESS NOTE PULMONARY/CRITICAL CARE PROGRESS NOTE: DATE OF SERVICE: 12/12/2019 This is a patient who we saw yesterday in consultation. He complained of shortness of breath, palpitations, racing heartbeat, all in my opinion likely related to his underlying cardiac disease. I doubt he had significant pulmonary disease at this time. I did mention to him that I would like to see him in the office so that we could do complete pulmonary function test to see if there is any component of pulmonary disease. In addition, the patient does admit to occasional sensations of excess mucus which is cleared by coughing, either related to postnasal drip and/or allergies. He does have a history of aortic valve replacement, status post AICD, no evidence of pulmonary embolism on CT angiogram, CAD, angina, atrial fibrillation, and severe cardiomyopathy. His ejection fraction is only 20%. Currently, he is doing about the same. He is anxious to get out of the hospital. PHYSICAL EXAMINATION: VITAL SIGNS: Current vital signs are reviewed. Temperature 97.5, heart rate 59, respiratory rate 18, blood pressure 87/58, mean 67, room air saturation 98%. Appears in no acute distress. HEENT: Examination is grossly unremarkable. NECK: Supple. CARDIOVASCULAR: Examination reveals regular rhythm rate. There is a soft systolic murmur. Heart sounds are distant. LUNGS: Reveal mostly clear breath sounds. Minimal crackles at the bases. ABDOMEN: Soft. Bowel sounds are heard. EXTREMITIES: Intact. No cyanosis, clubbing, or edema. SKIN: Without rash. NEUROLOGIC: Examination is brief but nonfocal. LABS: Reviewed. White count 8.7, hemoglobin 15.1, hematocrit 45.6, platelet count 300,000. Sodium 131, potassium 4.4, chloride 98, CO2 27, anion gap 6. BUN and creatinine were 38 and 1.53. The rest of the labs are reviewed. Microbiology is negative. No recent chest x-ray. Medications are reviewed. ASSESSMENT: 1. Shortness of breath, palpitations, and racing heartbeat, all likely cardiac in origin. Actually, I doubt significant pulmonary disease at this time. 2. Severe cardiomyopathy with ejection fraction of 20%. 3. Occasional sensations of excess mucus, which is cleared by coughing, possibly related to postnasal drip/sinus disease or allergies. 4. Status post aortic valve replacement. 5. Status post AICD/pacemaker placement. 6. CT angiogram negative for pulmonary embolism. 7. Coronary artery disease. 8. History of angina. 9. History of atrial fibrillation. PLAN: Currently, the patient is doing relatively well. I did tell the patient that I doubt he has significant pulmonary disease at this time. The patient will follow up in the office. At that time, we will do pulmonary function testing. Additional recommendations and suggestions are forthcoming. MMKAYLAL / IJN: [id number] /
--- NOTE | 2019-12-12 23:59 | PN ---
PROGRESS NOTE DATE OF SERVICE: 12/12/2019 This 63-year-old gentleman who was admitted with CHF acute exacerbation is closely monitored. No chest pain. No palpitations. No fever. The creatinine is 1.53 today. PHYSICAL EXAMINATION: On exam, alert and oriented x3. Pulse is 103, blood pressure 105/80, respiration 18, temperature 97.8, pulse ox 98% on room air. HEENT: Conjunctivae normal. NECK: No jugular venous distention. CARDIOVASCULAR: S1, S2 muffled. RESPIRATORY: Breath sounds are diminished at the bases. A few scattered rhonchi and crackles. ABDOMEN: Soft, nontender. NERVOUS SYSTEM: No focal deficits. LABS: CBC within normal limits. Sodium 131. ASSESSMENT: 1. Congestive heart failure acute exacerbation with acute on chronic systolic dysfunction, ischemic cardiomyopathy, ejection fraction 20%. 2. Hyponatremia. 3. Possible chronic obstructive pulmonary disease acute exacerbation. 4. Increased creatinine with chronic kidney disease, stage 3 with acute renal failure with acute tubular necrosis, . 5. Troponin 0.06 indeterminate. 6. Elevated AST, ALT possibly congestive hepatopathy. 7. History of chronic atrial flutter, fibrillation paroxysmal. 8. History of degenerative joint disease. 9. History of automated implantable cardioverter-defibrillator. 10.History of aortic valve replacement. 11.History of pacemaker. 12.History of degenerative joint disease and bilateral hip arthroplasty. 13.Remote history of nicotine dependence. 14.Obesity with body mass index of 32.5. 15.FULL CODE. RECOMMENDATIONS AND DISCUSSION: Recommend to continue current medications, continue symptomatic treatment. Continue with diuretics. Monitor creatinine closely. Otherwise, closely follow with Cardiology. Guarded prognosis. Further recommendations to follow. MMODL / IJN: [id number] / MTDD
[2019-12-13] MEDS: PANTOPRAZOLE 40 MG TABLET PO SCH (06:28)
[2019-12-13] MEDS: IPRATROPIUM-ALBUTEROL 3 ML NEB INHALATION SCH ×2 (08:03→10:58)
[2019-12-13 08:14] LABS: Basophils % (A) 0 %; Eosinophils # (A) 0.1 k/uL (0-0.7); Eosinophils % (A) 1 %; HCT 45.5 % (39.0-53.0); HGB 15.3 gm/dL (13.0-17.5); Lymphocytes % (A) 24 %; MCH 32.6 pg (25.0-35.0); MCHC 33.6 g/dL (31.0-37.0); MCV 97.1 fL (80.0-100.0); Mean Platelet Volume 7.1; Monocytes # (A) 0.7 k/uL (0-1.0); Monocytes % (A) 8 %; Neutrophils # (A) 5.5 k/uL (1.3-7.7); Neutrophils % (A) 65 %; Platelet Count 193 k/uL (150-450); RBC 4.69 m/uL (4.30-5.90); WBC 8.5 k/uL (3.8-10.6)
[2019-12-13 08:20] VITALS: PULSE 101
[2019-12-13 08:30] LABS: Calcium 8.6 mg/dL (8.4-10.2); Potassium 4.4 mmol/L (3.5-5.1)
[2019-12-13] MEDS: METOPROLOL SUCCINATE (ER) 25 MG TAB.ER.24H PO SCH (09:11)
[2019-12-13] MEDS: ATORVASTATIN 20 MG TAB PO SCH (09:11)
[2019-12-13] MEDS: POTASSIUM CHLORIDE ER 10 MEQ TAB.ER.PRT PO SCH (09:11)
[2019-12-13] MEDS: SACUBITRIL/VALSARTAN 24 MG-26 MG TABLET PO SCH (09:11)
[2019-12-13] MEDS: AMIODARONE 200 MG TAB PO SCH (09:12)
[2019-12-13] MEDS: FUROSEMIDE 40 MG TAB PO SCH (09:12)
[2019-12-13] MEDS: APIXABAN 5 MG TAB PO SCH (09:12)
--- NOTE | 2019-12-13 11:41 | P.PN ---
Subjective This is a pleasant 69-year-old male past medical history significant for nonischemic cardiomyopathy status post AICD, valvular heart disease status post aortic valve replacement, paroxysmal atrial fibrillation and chronic systolic heart failure. He follows in the office with Dr. Don. He is seen and examined sitting up at the bedside working on his laptop. He states he's been up walking 3 times a Cline this morning around the unit. He has no exertional chest discomfort. He does have some mild dyspnea at max exertion however states he feels at his baseline currently. He has no dizziness or palpitations. He continues to be in atrial flutter. Blood pressure 103/65 heart rate 101 afebrile maintaining oxygen saturation on nasal cannula. Laboratory data reviewed, CBC unremarkable, sodium 132, potassium 4.4, creatinine 1.37. Currently maintained on entresto 24/26 mg twice a day, Toprol 25 mg twice a day, Lasix 40 mg by mouth twice a day, atorvastatin 20 mg daily, Eliquis 5 mg twice a day and amiodarone 200 mg twice a day. GENERAL: Well-appearing, well-nourished and in no acute distress. NECK: Supple without JVD or thyromegaly. LUNGS: Breath sounds clear to auscultation bilaterally. Respiration equal and unlabored. No wheezes, rales or rhonchi. HEART: Irregular rate and rhythm with systolic ejection murmur at the base, no rubs or gallops. S1 and S2 heard. EXTREMITIES: Normal range of motion, no edema. No clubbing or cyanosis. Peripheral pulses intact. ASSESSMENT Acute on chronic systolic heart failure Paroxysmal atrial fibrillation on long-term anticoagulation Atrial flutter Severe nonischemic cardiomyopathy status post AICD Chronic kidney disease Valvular heart disease status post aortic valve replacement PLAN Stable on current medical regimen. Medication dosing and rationale discussed in great detail with the patient. He can be discharged from a cardiac perspective to follow-up in the office with Dr. Don in one to 2 weeks. At that time if he continues to be in atrial flutter we will consider possible cardioversion. Nurse Practitioner note has been reviewed, I agree with a documented findings and plan of care. Patient was seen and examined. Objective - Vital Signs Vital signs: Vital Signs Temp 97 F L 12/13/19 07:45 Pulse 101 H 12/13/19 07:45 Resp 18 12/13/19 07:45 BP 103/65 12/13/19 07:45 Pulse Ox 97 12/13/19 07:45 Intake & Output 12/12/19 12/13/19 12/13/19 18:59 06:59 18:59 Intake Total 715 Output Total 1000 1800 Balance -285 -1800 Weight 104.9 kg Intake: Oral 715 Output: Urine 1000 1800 Other: Voiding Method Toilet Urinal # Voids 1 - Labs CBC & Chem 7: 12/13/19 07:51 12/13/19 07:51 Labs: Abnormal Lab Results - Last 24 Hours (Table) 12/13/19 Range/Units 07:51 Sodium 132 L (137-145) mmol/L BUN 30 H (9-20) mg/dL Creatinine 1.37 H (0.66-1.25) mg/dL Glucose 147 H (74-99) mg/dL
[2019-12-13] MEDS: SODIUM CHLORIDE 0.9% 500 ML 500 ML IV SCH (12:03)
[2019-12-13 13:18] VITALS: BP 102/76; TEMP 98.2
--- NOTE | 2019-12-13 16:16 | P.PN ---
Subjective Progress Note Date: 12/13/19 69-year-old male patient on history of nonischemic cardiomyopathy with an ejection fraction of less than 20% and the patient has an AICD in place. The patient is also post aortic valve replacement. The patient came into the hospital because of worsening shortness of breath. He also has proximal atrial fibrillation. He was diuresed over the past 24-48 hours. He shortness of breath improved considerably. He is currently on room air oxygen. He continues to be in a flutter rhythm. He is on oral Lasix 40 mg twice a day in combination with Toprol 25 mg twice a day and the patient is also on Entresto had no angina. No palpitation. No significant swelling in lower extremities. No cough or sputum production. The patient denies any form of respiratory medications or inhalers on outpatient basis. We are looking for discharge this patient home today. He has no specific complaints. He is sitting up in bed, comfortable. His creatinine is also stable at 1.37. Objective - Vital Signs Vital signs: Vital Signs Temp 98.2 F 12/13/19 13:15 Pulse 101 H 12/13/19 13:15 Resp 18 12/13/19 13:15 BP 102/76 12/13/19 13:15 Pulse Ox 98 12/13/19 13:15 Intake & Output 12/12/19 12/13/19 12/13/19 18:59 06:59 18:59 Intake Total 715 410 Output Total 1000 1800 600 Balance -285 -1800 -190 Weight 104.9 kg Intake: Oral 715 410 Output: Urine 1000 1800 600 Other: Voiding Method Toilet Urinal # Voids 1 1 - Exam Gen. appearance the patient is well-developed calm and comfortable not in acute acute distress Head exam was generally normal. There was no scleral icterus or corneal arcus. Mucous membranes were moist. Neck was supple and without jugular venous distension, thyromegaly, or carotid bruits. Carotids were easily palpable bilaterally. There was no adenopathy. Cardiac exam revealed the PMI to be normally situated and sized. The rhythm was irregular consistent with atrial fibrillation/flutter and no extrasystoles were noted during several minutes of auscultation. The first and second heart sounds were normal and physiologic splitting of the second heart sound was noted. There were no murmurs, rubs, clicks, or gallops. The patient has an AICD over the left anterior chest area. Lungs were clear to auscultation and percussion, and with normal diaphragmatic excursion. No wheezes or rales were noted. Abdominal exam revealed normal bowel sounds. The abdomen was soft, non-tender, and without masses, organomegaly, or appreciable enlargement of the abdominal aorta. Examination of the extremities revealed easily palpable radial, femoral and pedal pulses. There was no cyanosis, clubbing or edema. Examination of the skin revealed no evidence of significant rashes, suspicious appearing nevi or other concerning lesions. - Labs CBC & Chem 7: 12/13/19 07:51 12/13/19 07:51 Labs: Abnormal Lab Results - Last 24 Hours (Table) 12/13/19 Range/Units 07:51 Sodium 132 L (137-145) mmol/L BUN 30 H (9-20) mg/dL Creatinine 1.37 H (0.66-1.25) mg/dL Glucose 147 H (74-99) mg/dL Assessment and Plan Plan: 1 exacerbation of chronic systolic heart failure with acute decompensation on top of chronic CHF 2 shortness of breath secondary to above 3 nonischemic artery myopathy with an ejection fraction of less than 20% and the patient has an AICD in place 4 chronic kidney disease with stable renal function 5 paroxysmal atrial fibrillation/flutter maintained on long-term articulation with Eliquis 6 previous history of aortic valve replacement/valvular heart disease Plan No active pulmonary issues. Agree on a management. Again agree on the diuretics and long-term anticoagulation. No need for oxygen therapy. No need for inhalers. Discharge per medicine and cardiology. We'll sign off the case.
--- NOTE | 2019-12-14 04:30 | DS ---
DISCHARGE SUMMARY DATE OF SERVICE: 12/13/2019 FINAL DIAGNOSES: 1. Congestive heart failure acute exacerbation acute on chronic systolic dysfunction, ischemic cardiomyopathy, ejection fraction 20%. 2. Hyponatremia. 3. Rule out chronic obstructive pulmonary disease. 4. Increased creatinine with chronic kidney disease stage 3 baseline with acute renal failure acute tubular necrosis, present on admission. 5. Troponin 0.6 indeterminate. 6. Elevated AST, ALT possibly congestive hepatopathy. 7. History of chronic atrial flutter fibrillation. 8. History of degenerative joint disease. 9. History of automated implantable cardioverter-defibrillator. 10.History of aortic valve replacement. 11.History of pacemaker. 12.History of degenerative joint disease and bilateral hip arthroplasty. 13.Remote history of nicotine dependence. 14.Obesity with body mass index of 32.5. 15.FULL CODE. DISCHARGE DISPOSITION: The patient will be discharged in stable condition with guarded prognosis. Total time taken 35 minutes. The patient's discharge cleared by Cardiology and Pulmonology. HISTORY OF PRESENT ILLNESS: This 69-year-old gentleman with past medical history of multiple medical problems admitted with significant CHF acute exacerbation treated with diuretics. Patient also had shortness of breath. Empiric treatment for COPD was also given. The patient did not have much of a smoking history. Recommend close followup with outpatient setting with Pulmonary for PFT and further evaluations otherwise. On exam, vitals are stable. CARDIOVASCULAR: S1 S2 muffled. ABDOMEN: Soft. NERVOUS SYSTEM: No focal deficits. Medications were adjusted and the patient improved significantly. The patient will be discharged in a stable condition with guarded prognosis with of these medications. DISCHARGE ADVICE AND MEDICATIONS: 1. Diet is cardiac. 2. Activity limited until followup. 3. Follow up with primary physician in 2-3 days. 4. Follow up with Dr. Cruz and Cardiology as recommended. Medications are as follows: 1. Cordarone 200 mg p.o. twice daily. 2. Ecotrin 81 mg p.o. daily. 3. K-Dur 10 mEq p.o. daily. 4. Lasix 40 mg p.o. b.i.d. 5. Lipitor 20 mg p.o. daily. 6. Eliquis 5 mg p.o. b.i.d. 7. Entresto one b.i.d. 8. Toprol-XL 25 mg p.o. b.i.d. Monitor CBC, BMP closely in the outpatient setting with primary and Cardiology. Once again, the patient will be discharged in stable condition with guarded prognosis. JONOL / OPALN: [id number] /
== END 2019-12-13 14:10 | disposition home or self-care (01) | DRG 291 ==
LOC: EC 09:59 → 3SCARD 13:06 → 3NCARDOBS 12-11 20:23 → 3SCARD 12-11 20:23
PROVIDERS: ADMIT Hospitalist; ATTEND Hospitalist
DX: I13.0 Hypertensive heart and chronic kidney disease with heart failure and stage 1 through stage 4 chronic kidney disease, or unspecified chronic kidney disease (principal); I50.23 Acute on chronic systolic (congestive) heart failure; N17.0 Acute kidney failure with tubular necrosis; E87.1 Hypo-osmolality and hyponatremia; I48.92 Unspecified atrial flutter; I42.8 Other cardiomyopathies; K76.1 Chronic passive congestion of liver; N18.3 Chronic kidney disease, stage 3 (moderate); Z95.3 Presence of xenogenic heart valve; I48.0 Paroxysmal atrial fibrillation; J44.9 Chronic obstructive pulmonary disease, unspecified; I25.5 Ischemic cardiomyopathy; E66.9 Obesity, unspecified; M19.90 Unspecified osteoarthritis, unspecified site; I25.10 Atherosclerotic heart disease of native coronary artery without angina pectoris; R79.89 Other specified abnormal findings of blood chemistry; Z71.3 Dietary counseling and surveillance; Z68.30 Body mass index [BMI] 30.0-30.9, adult; Z79.899 Other long term (current) drug therapy; Z79.82 Long term (current) use of aspirin; Z96.643 Presence of artificial hip joint, bilateral; Z87.891 Personal history of nicotine dependence; Z95.810 Presence of automatic (implantable) cardiac defibrillator
CPT/HCPCS: 36415; 71045; 71046; 71275; 80048; 80053; 81003; 83605; 83735; 83880; 84443; 84484; 85025; 85379; 85610; 85730; 93005; 93306; 94640; 96361; 96374; 96375; 99285

== ENCOUNTER → 2019-12-27 | Outpatient (CLI) | payer MEDICARE ==
[2019-12-27 15:40] LABS: Anion Gap 10.3 mmol/L (4.00-12.00); Carbon Dioxide 25.7 mmol/L (21.6-31.8); Non-African American GFR(CKD) 40.5 (60.0-200.0)
== END | disposition home or self-care (01) ==
LOC: LABWHC1 07:48
PROVIDERS: ATTEND Internal Medicine Interventional Cardiology
DX: I42.8 Other cardiomyopathies (principal)
CPT/HCPCS: 36415; 80051; 82565; 84520

== ENCOUNTER → 2019-12-29 | Day surgery (SDC) | payer MEDICARE ==
[2019-12-28 08:27] VITALS: BMI 31.4
[~2019-12-29] MED LIST: AMIODARONE 200 MG TAB PO SCH; APIXABAN 5 MG TAB PO SCH; ATORVASTATIN 20 MG TAB PO SCH; BENZOCAINE SPRAY 1 CAN MUCOUS MEM ONE; FUROSEMIDE 40 MG TAB PO SCH; KETAMINE 10 MG/ML 20 ML VIAL ONE; METOPROLOL SUCCINATE (ER) 25 MG TAB.ER.24H PO SCH; MIDAZOLAM 2 MG/2 ML VIAL ONE; PROPOFOL 10 MG/ML 20 ML VIAL IV ONE; SACUBITRIL/VALSARTAN 24 MG-26 MG TABLET PO SCH; SODIUM CHLORIDE 0.9% 1,000 ML IV SCH; ePHEDrine SULFATE/0.9% NACL/PF 50 MG/5 ML SYRINGE IV ONE
[2019-12-29 12:37] VITALS: TEMP 97.5
[2019-12-29 12:49] VITALS: RESP 16
--- NOTE | 2019-12-29 12:51 | ECHOT ---
TRANSESOPHAGEAL ECHOCARDIOGRAM INDICATION: Evaluation of left atrial appendage and atrial flutter. PROCEDURE: After explaining the procedure to the patient, its risks and complications, his blood pressure, heart rate, O2 saturation was monitored. The throat was sprayed with Cetacaine. He received sedation per Anesthesia Department. The probe was introduced in the esophagus without difficulties. Images were obtained. Following that, the probe was removed. There was no immediate complication. FINDINGS: Left atrial size is dilated. Right atrial appendage is normal. Spontaneous contrast was noted. Left ventricular size is dilated. The over left ventricle systolic function severely impaired. Ejection fraction is about 20%. The aortic valve is an is a bioprosthetic valve with mild calcification mitral valve revealed mild thickening of the valve leaflets. Tricuspid valve is normal descending thoracic aorta appears to be normal contrast bubble study revealed no evidence shunting across the interatrial septum. There was evidence of significant intra-atrial septal aneurysmal formation. Doppler pulse wave and color Doppler obtained revealed mild to moderate mitral and moderate tricuspid regurgitation. There was no shunting by color Doppler study. The aortic valve gradient was normal. FINDINGS: 1. Dilated left atrium with normal appearance left atrial appendage and evidence of spontaneous contrast. 2. Dilated left ventricle with severely impaired left ventricular systolic function with global hypokinesis. 3. Bioprosthetic aortic valve with normal function. 4. Mild to moderate mitral with moderate tricuspid regurgitation. 5. Intra-atrial septal aneurysmal formation with no shunting. 6. Normal appearance of the descending thoracic aorta. MMODL / IJN: [id number] /
--- NOTE | 2019-12-29 13:48 | CE ---
CARDIAC ELECTROPHYSIOLOGY REPORT INDICATION: Atrial flutter. PROCEDURE: After explaining the procedure to the patient, its risks and complication, after performing transesophageal echocardiogram and performing an and obtaining sedated state, a synchronized biphasic cardioversion using 200 joules was performed with synagogue of normal sinus rhythm. There was no immediate complication. GIULIANO / KIA: [id number] /
[2019-12-29 14:50] VITALS: BP 106/80; PULSE 68
== END | disposition home or self-care (01) ==
LOC: CATHCVL 10:26
PROVIDERS: ATTEND Internal Medicine Interventional Cardiology
DX: I48.3 Typical atrial flutter (principal); I08.1 Rheumatic disorders of both mitral and tricuspid valves; I11.0 Hypertensive heart disease with heart failure; I50.9 Heart failure, unspecified; I42.8 Other cardiomyopathies; Z95.810 Presence of automatic (implantable) cardiac defibrillator; E78.2 Mixed hyperlipidemia; Z95.2 Presence of prosthetic heart valve; Z87.891 Personal history of nicotine dependence; Z79.82 Long term (current) use of aspirin; Z79.02 Long term (current) use of antithrombotics/antiplatelets; Z79.899 Other long term (current) drug therapy; Z96.649 Presence of unspecified artificial hip joint; Z90.89 Acquired absence of other organs; Z79.01 Long term (current) use of anticoagulants
CPT/HCPCS: 93312; 93320; 93325; 92960; J2250; J2704

== ENCOUNTER → 2020-02-07 | Outpatient (CLI) | payer MEDICARE ==
[2020-02-07 13:01] LABS: Potassium 5.1 mmol/L (3.5-5.1)
[2020-02-07 13:04] LABS: HCT 47.4 % (39.0-53.0); HGB 16.2 gm/dL (13.0-17.5); MCHC 34.1 g/dL (31.0-37.0); MCV 96.8 fL (80.0-100.0); Mean Platelet Volume 6.7; Platelet Count 135 k/uL (150-450); RDW 12.6 % (11.5-15.5); WBC 9.2 k/uL (3.8-10.6)
== END | disposition home or self-care (01) ==
LOC: LABPAT 11:32
PROVIDERS: ATTEND Internal Medicine Interventional Cardiology
DX: Z01.818 Encounter for other preprocedural examination (principal); I48.3 Typical atrial flutter
CPT/HCPCS: 36415; 80051; 82565; 84520; 85027

== ENCOUNTER 2020-02-08 09:05 | Day surgery (SDC) | payer MEDICARE ==
[2020-02-07 11:24] VITALS: BMI 31.6
[~2020-02-08 09:05] MED LIST changes: -AMIODARONE 200 MG TAB PO SCH; -APIXABAN 5 MG TAB PO SCH; -ATORVASTATIN 20 MG TAB PO SCH; -BENZOCAINE SPRAY 1 CAN MUCOUS MEM ONE; -FUROSEMIDE 40 MG TAB PO SCH; -KETAMINE 10 MG/ML 20 ML VIAL ONE; -METOPROLOL SUCCINATE (ER) 25 MG TAB.ER.24H PO SCH; -MIDAZOLAM 2 MG/2 ML VIAL ONE; -PROPOFOL 10 MG/ML 20 ML VIAL IV ONE; -SACUBITRIL/VALSARTAN 24 MG-26 MG TABLET PO SCH; -ePHEDrine SULFATE/0.9% NACL/PF 50 MG/5 ML SYRINGE IV ONE
[2020-02-08] MEDS ORDERED: SODIUM CHLORIDE 0.9% 500 ML 500 ML IV ONE (09:49)
[2020-02-08] MEDS ORDERED: PROPOFOL 10 MG/ML 20 ML VIAL IV ONE (10:27)
[2020-02-08] MEDS ORDERED: SODIUM CHLORIDE 0.9% 1,000 ML IV SCH (11:00)
[2020-02-08 11:08] VITALS: TEMP 97
--- NOTE | 2020-02-08 11:16 | CE ---
CARDIAC ELECTROPHYSIOLOGY REPORT CARDIOVERSION PROCEDURE NOTE: INDICATION: Atrial flutter. PROCEDURE: After explaining the procedure to the patient, its risks and the complications, his blood pressure, heart rate, O2 saturation was monitored. He received sedation per Anesthesia Department. A synchronized biphasic 200 joule cardioversion was performed with lutheran of normal sinus rhythm. There was no immediate complication. MMODL / IJN: [id number] /
[2020-02-08 12:44] VITALS: BP 115/82; PULSE 65; RESP 18
[2020-02-08] MEDS ORDERED: FUROSEMIDE 40 MG TAB PO SCH (16:00)
[2020-02-08] MEDS ORDERED: AMIODARONE 200 MG TAB PO SCH (21:00)
[2020-02-08] MEDS ORDERED: METOPROLOL SUCCINATE (ER) 25 MG TAB.ER.24H PO SCH (21:00)
[2020-02-08] MEDS ORDERED: APIXABAN 5 MG TAB PO SCH (21:00)
[2020-02-08] MEDS ORDERED: SACUBITRIL/VALSARTAN 24 MG-26 MG TABLET PO SCH (21:00)
[2020-02-09] MEDS ORDERED: ATORVASTATIN 20 MG TAB PO SCH (09:00)
== END 2020-02-08 12:43 | disposition home or self-care (01) ==
LOC: CATHCVL 09:05
PROVIDERS: ATTEND Internal Medicine Interventional Cardiology
DX: I48.3 Typical atrial flutter (principal); I42.8 Other cardiomyopathies; E78.2 Mixed hyperlipidemia; I48.91 Unspecified atrial fibrillation; E66.9 Obesity, unspecified; R06.2 Wheezing; R60.0 Localized edema; I11.0 Hypertensive heart disease with heart failure; I50.9 Heart failure, unspecified; I07.1 Rheumatic tricuspid insufficiency; Z79.01 Long term (current) use of anticoagulants; Z95.2 Presence of prosthetic heart valve; Z95.810 Presence of automatic (implantable) cardiac defibrillator; Z72.0 Tobacco use; Z79.899 Other long term (current) drug therapy; Z98.890 Other specified postprocedural states; Z68.31 Body mass index [BMI] 31.0-31.9, adult
CPT/HCPCS: 93005; 92960; J2704

== ENCOUNTER → 2020-03-09 | Outpatient (CLI) | payer MEDICARE ==
[2020-03-09 12:32] LABS: HCT 50.6 % (39.0-53.0); HGB 17.1 gm/dL (13.0-17.5); MCH 32.8 pg (25.0-35.0); MCHC 33.8 g/dL (31.0-37.0); MCV 97.1 fL (80.0-100.0); Mean Platelet Volume 6.6; Platelet Count 174 k/uL (150-450); RBC 5.21 m/uL (4.30-5.90); RDW 12.6 % (11.5-15.5); WBC 8.7 k/uL (3.8-10.6)
[2020-03-09 12:43] LABS: Magnesium 2.3 mg/dL (1.6-2.3); Potassium 4.7 mmol/L (3.5-5.1)
== END | disposition home or self-care (01) ==
LOC: LABWHC1 11:47
PROVIDERS: ATTEND Internal Medicine Clinical Cardiac Electrophysiology
DX: Z01.818 Encounter for other preprocedural examination (principal); I48.3 Typical atrial flutter
CPT/HCPCS: 36415; 80051; 82565; 83735; 84520; 85027

== ENCOUNTER 2020-03-16 11:01 | Day surgery (SDC) | payer MEDICARE ==
[2020-03-16] MEDS: FUROSEMIDE 100 MG in SODIUM CHLORIDE 0.9% 90 ML IV SCH ×2 (11:20→21:01)
[2020-03-16] MEDS: SODIUM CHLORIDE 0.9% 1,000 ML IV SCH ×2 (11:20→11:47)
[2020-03-16] MEDS ORDERED: GLYCOPYRROLATE 0.2 MG/ML 2 ML VIAL ONE (16:30)
[2020-03-16] MEDS ORDERED: ROCURONIUM 10 MG/ML (10 ML VIAL) IV ONE (16:30)
[2020-03-16] MEDS ORDERED: SUCCINYLCHOLINE CHLORIDE 100 MG/5 ML SYR IV ONE (16:30)
[2020-03-16] MEDS ORDERED: ETOMIDATE 2 MG/ML 10 ML VIAL ONE (16:30)
[2020-03-16] MEDS ORDERED: NEOSTIGMINE 1 MG/ML 10 ML VIAL ONE (16:30)
[2020-03-16] MEDS ORDERED: fentaNYL (PF) 50 MCG/ML 2 ML AMP ONE (16:30)
[2020-03-16] MEDS ORDERED: PHENYLEPHRINE 10 MG/ML VIAL ONE (16:30)
[2020-03-16] MEDS ORDERED: ONDANSETRON 4 MG/2 ML VIAL ONE (16:30)
[2020-03-16] MEDS ORDERED: LIDOCAINE 1% INJ 10MG/ML (20 ML MDV) ONE ×2 (16:30→16:52)
[2020-03-16] MEDS ORDERED: HEPARIN SODIUM 1,000 UN/ML (10ML VL) ONE (16:51)
[2020-03-16] MEDS ORDERED: LIDOCAINE 1% INJ 10MG/ML (20 ML MDV) SQ ONE (17:12)
[2020-03-16] MEDS ORDERED: HEPARIN SODIUM (1,000 UNIT/ML) 1,000 UNIT in SODIUM CHLORIDE 0.9% 1,000 ML IRRIGATION ONE (18:29)
--- NOTE | 2020-03-16 18:52 | P.HPCAR ---
History of Present Illness This is Dr. Mobley dictating an H/P on this patient The patient was interviewed and examined IMPRESSION / ASSESSMENT: Severe nonischemic current myopathy Aortic valve replacement, bioprosthetic valve Status post dual-chamber ICD Recurrent atrial flutter, symptomatic Severe LV dysfunction with congestive heart failure class 3 with orthopnea and PND QRS width 155 ms left bundle branch block Frequent PVCs History of atrial fibrillation on amiodarone PLAN: Will admit early in the day prior to ablation for IV Lasix drip for heart failure management he has orthopnea and PND as finds it difficult to lie flat in bed Following that once he is stable we'll proceed with atrial flutter ablation under general anesthesia A left upper extremity venogram be performed in preparation for upgrade to a biventricular ICD in the future HPI Patient complains of shortness of breath which was progressive since July 2019 He complains of orthopnea and PND almost on a daily basis No chest discomfort line he was short of breath at rest with orthopnea when he came in line he was treated with IV Lasix drip 10 mg an hour After several hours he was able to lie flat comfortably. He has a mild JVD He denied fever chills cough expectoration diarrhea With IV Lasix here improvement in his symptoms and thereafter he was taken to the EP lab ROS: No fever chills or rigors, no cough, phlegm or expectoration, no nausea, vomiting or diarrhea, no hematuria, dysuria, no musculoskeletal complaints, no strokes or seizures, no skin lesions. EXAMINATION: Afebrile 90F pulse rate in the 60s respirations normal blood pressure 110/75 is of mercury Breath sounds are reduced bilaterally Heart sounds S1 and S2 are normal S2 is crisp Abdomen is soft Mild hepatojugular reflux Abdomen is soft Extremities are warm no edema Orthopnea upon admission Improvement with IV Lasix drip REVIEW OF LABS, ECG & MEDICAL DATA He has a dual-chamber ICD, Medtronic Physical Exam Vitals: Vital Signs Temp Pulse Resp BP Pulse Ox 03/16/20 11:42 98 F 60 18 110/75 93 L Intake and Output 03/16/20 03/16/20 03/16/20 06:59 14:59 22:59 Intake Total 20 890 Output Total 600 1200 Balance -580 -310 Intake: IV 20 890 Output: Urine 600 1200 Other: Weight 110 kg Past Medical History Past Medical History: Atrial Fibrillation, Chest Pain / Angina, Osteoarthritis (OA) Additional Past Medical History / Comment(s): Pt states his EF is 20%, pt states he takes lasix so he doesn't build up fluid around his heart, pt denies hx of htn or high cholesterol. History of Any Multi-Drug Resistant Organisms: None Reported Past Surgical History: AICD, Cardiac Valve Replacement, Joint Replacement, Pacemaker, Tonsillectomy Additional Past Surgical History / Comment(s): 2007 aortic valve replacement, AICD/pacer approximately 2012 at [facility], bilateral total hip arthroplasty, L eye cataract removal, colonoscopy. Past Anesthesia/Blood Transfusion Reactions: No Reported Reaction Type of Cardiac Device: Permanent Pacemaker, AICD Device Placement Date:: 2012 at [place] Additional Psychological History / Comment(s): Pt resides with his spouse. He is independent. Past Alcohol Use History: Daily Additional Past Alcohol Use History / Comment(s): Pt started smoking in approximately 1969 and quit in 1972. He states he drinks 2 beers a day. - Past Family History Father Family Medical History: No Reported History Additional Family Medical History / Comment(s): Father was healthy Mother Family Medical History: No Reported History Additional Family Medical History / Comment(s): . Physical Examination Vital Signs Temp Pulse Resp BP Pulse Ox 03/16/20 11:42 98 F 60 18 110/75 93 L Intake and Output 03/16/20 03/16/20 03/16/20 06:59 14:59 22:59 Intake Total 20 890 Output Total 600 1200 Balance -580 -310 Intake: IV 20 890 Output: Urine 600 1200 Other: Weight 110 kg Results Current Medications Generic Name Dose Route Start Last Admin Trade Name Freq PRN Reason Stop Dose Admin Apixaban 5 mg 03/16/20 21:00 Apixaban 5 Mg Tab PO BID INEZ Atorvastatin Calcium 20 mg 03/17/20 09:00 Atorvastatin 20 Mg Tab PO DAILY INEZ Lactated Ringer's 1,000 mls @ 20 mls/hr 03/16/20 05:56 Lactated Ringers IV .Q24H INEZ Furosemide 100 mg/ Sodium 100 mls @ 10 mls/hr 03/16/20 06:00 03/16/20 11:20 Chloride IV 10 mls .Q10H INEZ Administration 10 MG/HR Furosemide 100 mg/ Sodium 100 mls @ 10 mls/hr 03/16/20 18:45 Chloride IV .Q10H INEZ 10 MG/HR Metoprolol Succinate 25 mg 03/17/20 09:00 Metoprolol Succinate (Er) 25 Mg Tab.Er.24h PO DAILY INEZ Potassium Chloride 40 meq 03/16/20 21:00 Potassium Chloride Er 20 Meq Tab.Er PO HS INEZ Sacubitril/Valsartan 1 each 03/16/20 21:00 Sacubitril/Valsartan 24 Mg-26 Mg Tablet PO BID INEZ Intake and Output 03/16/20 03/16/20 03/16/20 06:59 14:59 22:59 Intake Total 20 890 Output Total 600 1200 Balance -580 -310 Intake: IV 20 890 Output: Urine 600 1200 Other: Weight 110 kg Patient Weight 03/17/20 06:59 Weight 110 kg
--- NOTE | 2020-03-16 18:54 | P.PCN ---
Preoperative Diagnosis: Left upper extremity venogram 50 mL IV dye injected in the left arm Patent left subclavian and left axillary and innominate veins Patent SVC Patient is a dual-chamber ICD Screw-in right atrial appendage lead Screw-in RV lead in the low RV septum No fractures or breaks noted Plan Proceed with a biventricular ICD upgrade in the future
--- NOTE | 2020-03-16 18:56 | P.PCN ---
Preoperative Diagnosis: Dual-chamber ICD was interrogated prior to the procedure ICD therapies were turned off Rate responsiveness was turned off At the end of the procedure the ICD was interrogated and reprogrammed We have zone 214 beats a minute VT zone 176 beats a minute Appropriate antitachycardia pacing cardioversion and defibrillation programmed
--- NOTE | 2020-03-16 19:03 | P.EPPROC ---
- EP Procedure Note Electrophysiology Procedure Note: Diagnosis Recurrent atrial flutter on amiodarone History of paroxysmal atrial fibrillation, on oral amiodarone History of cardio myopathy, severe with congestive heart failure class III with orthopnea PND, recurrent episodes Bioprosthetic aortic valve Patient was brought to the EP lab in a fasting state after treating with IV Lasix drip 10 mg at hour an improvement in orthopnea and PND Procedure performed under general anesthesia IV antibiotics administered Venous sheaths placed in the right and left femoral veins Diagnostic catheters placed Coronary sinus catheter placed Intracardiac echo catheter placed No intracardiac masses noted No pericardial effusion Severe LV dysfunction noted on intracardiac echo Left atrial appendage did not show any masses 3-D electro anatomic mapping performed The caval tricuspid isthmus was identified and tagged. Tricuspid annulus and IVC and eustachian ridge were tied RF ablation was performed in the caval tricuspid isthmus A complete line of block was made This was then interrogated with pacing maneuvers Differential pacing revealed complete bidirectional block Isthmus conduction time close to 200 ms Please note patient was on oral amiodarone 200 mg by mouth daily and has been amiodarone for many years AH interval 127 ms, HV interval 65 ms AK interval to 96 ms, QRS 154 ms QT interval 433 ms Left upper extremity venogram performed ICD interrogation with reprogramming performed Please see separate result successful atrial flutter ablation with demonstration of bidirectional block. However patient has been amiodarone for many years Plan Reduce amiodarone to 100 mg daily Within the next month proceed with upgrade to a biventricular ICD for heart failure management in the setting of severe LV dysfunction with chronic systolic heart failure class III on guideline account director treatment Underlying left bundle branch block pattern with a QRS width greater than 150 ms
[2020-03-16] MEDS ORDERED: FUROSEMIDE 100 MG in SODIUM CHLORIDE 0.9% 90 ML IV SCH (20:00)
[2020-03-16] MEDS ORDERED: POTASSIUM CHLORIDE ER 20 MEQ TAB.ER PO SCH (21:00)
[2020-03-16] MEDS: LACTATED RINGERS 1,000 ML IV SCH (21:01)
[2020-03-16] MEDS: SACUBITRIL/VALSARTAN 24 MG-26 MG TABLET PO SCH (21:11)
[2020-03-16] MEDS: APIXABAN 5 MG TAB PO SCH (21:11)
[2020-03-17] MEDS: LACTATED RINGERS 1,000 ML IV SCH (02:14)
[2020-03-17 03:36] VITALS: TEMP 98.2
[2020-03-17 08:02] LABS: HGB 17.3 gm/dL (13.0-17.5); MCHC 34.5 g/dL (31.0-37.0); MCV 95.7 fL (80.0-100.0); Mean Platelet Volume 6.5; Platelet Count 154 k/uL (150-450); RBC 5.23 m/uL (4.30-5.90); RDW 12.5 % (11.5-15.5); WBC 11.3 k/uL (3.8-10.6)
[2020-03-17 08:14] LABS: Calcium 9.4 mg/dL (8.4-10.2); Magnesium 2.1 mg/dL (1.6-2.3); Potassium 4.6 mmol/L (3.5-5.1)
[2020-03-17] MEDS: SACUBITRIL/VALSARTAN 24 MG-26 MG TABLET PO SCH (08:43)
[2020-03-17] MEDS: APIXABAN 5 MG TAB PO SCH (08:43)
[2020-03-17] MEDS ORDERED: AMIODARONE 100 MG TAB PO SCH (09:00)
[2020-03-17] MEDS ORDERED: METOPROLOL SUCCINATE (ER) 25 MG TAB.ER.24H PO SCH (09:00)
[2020-03-17] MEDS ORDERED: ATORVASTATIN 20 MG TAB PO SCH (09:00)
[2020-03-17 11:24] VITALS: RESP 16
[2020-03-17 12:54] VITALS: BP 119/73; PULSE 63
--- NOTE | 2020-03-20 18:31 | P.DS ---
Providers Attending physician: Srikanth Mobley Primary care physician: Stated None Assessment: Patient is doing well post ablation. He is ablating around in the room Groins of healed well no hematoma no swelling No chest discomfort no dizziness lightheadedness no undue shortness of breath no pleuritic chest discomfort Semination blood pressure 104/59 mmHg pulse rate in the 60s afebrile 98.2F normal respirations No JVD Normal heart sounds no rub no gallop no murmurs Breath sounds are clear no rhonchi no crackles Abdomen is soft nontender groins of healed well No edema Impression Severe LV dysfunction Typical atrial flutter Status post successful ablation History of permanent pacemaker implantation Venogram shows patent subclavian and axillary vein of the left side of Plan Reduce amiodarone to 100 mg by mouth daily Discharge home today Continue anticoagulation Upgrade to a biventricular ICD as an outpatient next month Plan - Discharge Summary Discharge Rx Participant: No New Discharge Prescriptions: New RX: Amiodarone [Cordarone] 100 mg PO DAILY #90 tab Discontinued RX: Amiodarone [Cordarone] 200 mg PO DAILY No Action Atorvastatin [Lipitor] 20 mg PO DAILY RX: Apixaban [Eliquis] 5 mg PO BID #180 tab RX: Sacubitril/Valsartan [Entresto 24 mg-26 mg Tablet] 1 each PO BID #180 tablet RX: Furosemide [Lasix] 40 mg PO BID RX: Metoprolol Succinate (ER) [Toprol XL] 25 mg PO DAILY Discharge Medication List Atorvastatin [Lipitor] 20 mg PO DAILY 12/09/19 [History] RX: Apixaban [Eliquis] 5 mg PO BID #180 tab 12/13/19 [Rx] RX: Sacubitril/Valsartan [Entresto 24 mg-26 mg Tablet] 1 each PO BID #180 tablet 12/13/19 [Rx] RX: Furosemide [Lasix] 40 mg PO BID 03/09/20 [History] RX: Amiodarone [Cordarone] 100 mg PO DAILY #90 tab 03/16/20 [Rx] RX: Metoprolol Succinate (ER) [Toprol XL] 25 mg PO DAILY 03/16/20 [History] Follow up Appointment(s)/Referral(s): Srikanth Mobley MD [STAFF PHYSICIAN] - As Needed (Follow Dr. Don in 1-2 weeks) Wiley Don MD [STAFF PHYSICIAN] - 1 Week Patient Instructions/Handouts: Cardiac Ablation (DC) Activity/Diet/Wound Care/Special Instructions: Post EP study - Ablation instructions 1. Keep access sites dry for 2 days. 2. No heavy lifting or straining for 2 days. 3. Avoid bending the hips repeatedly for 2 days. 4. You may go up and down stairs slowly Call if the following is noted 1. Bleeding, increasing swelling or pain at the access sites. 2. Increasing chest discomfort, especially upon taking a deep breath. 3. Increasing shortness of breath, at rest or with exertion. 4. Undue cough / phlegm 5. Difficulty or pain while swallowing. 6. Pain or change in color in the extremities. 7. Fever, chills, rigors. 8. Increasing headache or neurologic symptoms. 9. Dizziness, fainting, palpitations reduce amiodarone to 100 mg by mouth daily Continue all other cardiac medications including and granulation Discharge Disposition: HOME SELF-CARE
== END 2020-03-17 13:59 | disposition home or self-care (01) ==
LOC: CATHEP 11:01 → 1SOBS 18:19 → 3SCARD 19:14 → CATHEP 03-17 13:59
PROVIDERS: ATTEND Internal Medicine Clinical Cardiac Electrophysiology
DX: I48.3 Typical atrial flutter (principal); I42.8 Other cardiomyopathies; I48.0 Paroxysmal atrial fibrillation; I11.0 Hypertensive heart disease with heart failure; I50.9 Heart failure, unspecified; I44.7 Left bundle-branch block, unspecified; I49.3 Ventricular premature depolarization; E78.2 Mixed hyperlipidemia; Z79.01 Long term (current) use of anticoagulants; Z79.899 Other long term (current) drug therapy; Z95.2 Presence of prosthetic heart valve; E66.9 Obesity, unspecified; N28.9 Disorder of kidney and ureter, unspecified; M19.90 Unspecified osteoarthritis, unspecified site; Z68.32 Body mass index [BMI] 32.0-32.9, adult; Z95.810 Presence of automatic (implantable) cardiac defibrillator; Z96.643 Presence of artificial hip joint, bilateral; Z98.42 Cataract extraction status, left eye; Z98.890 Other specified postprocedural states; Z90.89 Acquired absence of other organs; Z87.891 Personal history of nicotine dependence
CPT/HCPCS: 93662; 93613; 75820; 93283; 93653; 80048; 84443; 83735; 85027; C1894; C1769 ×2; C1730; C1759; C1732; J1940; J2370; J2710; J0690; J2405; J2001; J3010; J1644; J0330

== ENCOUNTER 2020-04-10 09:53 | Day surgery (SDC) | payer MEDICARE ==
[2020-04-06 15:40] VITALS: BMI 31.3
[~2020-04-10 09:53] MED LIST changes: +ceFAZolin 1 GM in SODIUM CHLORIDE 0.9% 250 ML IRRIGATION PRN
[2020-04-10] MEDS ORDERED: LIDOCAINE 1% INJ 10MG/ML (20 ML MDV) ONE (11:32)
[2020-04-10] MEDS ORDERED: ePHEDrine SULFATE/0.9% NACL/PF 50 MG/5 ML SYRINGE IV ONE (11:50)
[2020-04-10] MEDS ORDERED: fentaNYL (PF) 50 MCG/ML 2 ML AMP ONE (11:50)
[2020-04-10] MEDS ORDERED: KETAMINE 10 MG/ML 20 ML VIAL ONE (11:50)
[2020-04-10] MEDS ORDERED: PROPOFOL 10 MG/ML 20 ML VIAL IV ONE ×2 (11:50)
[2020-04-10] MEDS ORDERED: MIDAZOLAM 2 MG/2 ML VIAL ONE (11:50)
[2020-04-10] MEDS ORDERED: LIDOCAINE 1% INJ 10MG/ML (20 ML MDV) SQ ONE (12:39)
[2020-04-10] MEDS ORDERED: IOPAMIDOL-370 50ML BTL INJ ONE (13:39)
[2020-04-10] MEDS ORDERED: ACETAMINOPHEN TAB 325 MG TAB PO PRN (14:48)
[2020-04-10 15:56] VITALS: TEMP 97.5
--- NOTE | 2020-04-10 16:00 | CE ---
CARDIAC ELECTROPHYSIOLOGY REPORT 69-year-old male patient with nonischemic cardiomyopathy with class 3 heart failure, QRS width of 144 milliseconds, left bundle branch block pattern. The patient is brought in for an upgrade. He has a dual-chamber ICD implanted many years back. He medical treatment. He was brought in for upgrade to a biventricular ICD. He has already undergone an atrial flutter ablation successfully. Patient is brought to the EP lab in a fasting state. Written informed consent was obtained prior to the procedure. An incision made directly over the defibrillator near the deltopectoral groove, about 1.5 cm medial to the incision was carried down to the level of the generator and the generator was explanted. Partial capsulectomy was performed. Hemostasis was assured. Aquamantys was used to achieve hemostasis. The left axillary vein was accessed and with some difficulty an angioplasty wire was placed in the central circulation. Following that, venoplasty of the subclavian vein was performed. The subclavian vein was dilated inferiorly with serially increasing size and dilators and an 8-Polish sheath was placed. Via this, HIS bundle sheath and catheter and lead were placed. We were able to get good HIS bundle signals with the current of injury. However, stability was clearly an issue. Once a stable position was achieved at the site of HIS bundle signal with a local current of injury, the lead was screwed in. However, despite obtaining selective capture, there was absence of normalization of the QRS. The patient remained in the left bundle branch block pattern. The lead was then removed and repositioned. At this time, we got nonselective capture, but once again without normalization of the QRS. Multiple other areas were attempted, but the lead was not stable at the other sites. Therefore, this approach was abandoned because of non-normalization of the left bundle/QRS. An LV lead was placed. Coronary sinus catheter was placed in the coronary sinus. The sheath was placed in the coronary sinus, venogram was performed. The patient had an anterior vein, anterolateral vein. Two large lateral veins. First the anterior vein was selected, but there was diaphragmatic stimulation in the midportion of the LV. Therefore the lateral vein was sub-selected and engaged and the screw-in Medtronic LV lead was placed here. Both sheaths were removed. The lead was stable. This was a [employer] model #4798, 88 cm in length and serial number [id number], positioned in the lateral vein. Thresholds are excellent, 1 V at 0.4 milliseconds (distal poles, and pacing impedance of 589 ohms). The chronic RV lead was a Medtronic model #6935M, 62 cm length and serial number [id number]. The pacing threshold was 0.75 V at 0.4 milliseconds. Pacing impedance of 513 ohms. R-waves 7.9 mV. The chronic right atrial lead was a Medtronic model #5076, 52 cm length and serial number [id number]. P waves were 2.3 mV, pacing impedance 513 ohms, pacing threshold 1 V at 0.4 milliseconds, 10 V test negative. The leads were secured to the underlying pectoralis muscle. Hemostasis was achieved with the Aquamantys system. The old device was removed and explanted. The new device was implanted. This was a Medtronic biventricular ICD Amplia MRI quad device model number AFYT6MM, serial number [id number]. The leads and the generator were then placed in subfascial pocket and the wound was closed in 3 layers and dressed per protocol. RESULTS: Successful upgrade to a biventricular ICD with LV lead placement in the lateral vein. This was a Medtronic screw-in LV lead. This lead was stable in the vein. PLAN: DFT testing in about 3 months. Continue cardiac medications. MMODL / IJN: [id number] /
[2020-04-10] MEDS ORDERED: ACETAMINOPHEN IV (For NPO) 1,000 MG in EMPTY BAG 1 BAG IVPB ONE (17:00)
[2020-04-10 17:05] VITALS: RESP 16
--- NOTE | 2020-04-10 17:32 | XR ---
EXAMINATION TYPE: XR chest 1V portable DATE OF EXAM: 04/10/2020 COMPARISON: December 10, 2019 HISTORY: Short of breath. Leg placement. TECHNIQUE: Single view FINDINGS: There is no heart failure nor confluent pneumonic infiltrate. There is slight coarsening of interstitial markings in the left lower lobe. Heart is top normal in size. There is left axillary pa cemaker. There are sternal wires. There is lead tip in the right ventricle. There is a second lead ti p over the mid heart. IMPRESSION: Minimal pulmonary fibrotic changes. No heart failure. Heart and lungs not significantly d ifferent than last exam. Mild fibrotic changes in the left lower lobe.
[2020-04-10 19:38] VITALS: BP 117/83; PULSE 67
== END 2020-04-10 20:10 | disposition home or self-care (01) ==
LOC: CATHEP 09:53 → 6NMEDSUR 15:38 → CATHEP 20:10
PROVIDERS: ATTEND Internal Medicine Clinical Cardiac Electrophysiology
DX: Z45.02 Encounter for adjustment and management of automatic implantable cardiac defibrillator (principal); I48.3 Typical atrial flutter; I42.8 Other cardiomyopathies; I11.0 Hypertensive heart disease with heart failure; I50.9 Heart failure, unspecified; I44.7 Left bundle-branch block, unspecified; I48.91 Unspecified atrial fibrillation; Z72.0 Tobacco use; I49.3 Ventricular premature depolarization; Z95.810 Presence of automatic (implantable) cardiac defibrillator; Z96.643 Presence of artificial hip joint, bilateral; Z95.2 Presence of prosthetic heart valve; Z79.01 Long term (current) use of anticoagulants; Z79.899 Other long term (current) drug therapy
CPT/HCPCS: 33225; 33264; 71045; C1769 ×5; C1892; C1730; C1887; C1898; C1882; J2250; J0690; J2001; J3010; J0131; J2704; Q9967; 33263

== ENCOUNTER → 2020-06-26 | Outpatient (CLI) | payer MEDICARE, OTHER ==
--- NOTE | 2020-06-26 11:25 | XR ---
EXAMINATION TYPE: XR lumbar spine 2 or 3V DATE OF EXAM: 06/26/2020 Comparison: None Clinical History: 69-year-old male M54.5, M25.512 Findings: 5 lumbar type vertebral bodies. There is a bulky right lateral bridging endplate at L4-L5. Hypertroph ic facet arthropathy throughout. Moderate degenerative disc disease L4-L5 and more moderate to severe at L5-S1 with loss of disc height, endplate spondylosis and sclerosis. Disc vacuum is present at L5- S1. Prominent disc bulge noted at L3-L4. Vertebral body heights are preserved. Alignment maintained. Bilateral: (Partially visualized. Impression: Moderate disc/endplate degenerative change at L4-L5 and moderate to severe L5-S1. Hypertrophic facet arthropathy. No vertebral compression collapse or malalignment.
--- NOTE | 2020-06-26 11:27 | XR ---
EXAMINATION TYPE: XR shoulder complete LT DATE OF EXAM: 06/26/2020 Comparison: None Clinical History: 69-year-old male M54.5, M25.512 Findings: Left anterior chest wall pacemaker generator. Partially visualized median sternotomy wires. AC joint appears intact. Subacromial space is preserved though there is rounded contour to the greater tuberos ity. There is severe degenerative change of the glenohumeral joint with loss of cartilage and joint s pace, subchondral sclerosis and cystic change and inferior spurring. Impression: 1. No acute osseous abnormality seen. 2. Rounded contour of the greater tuberosity may reflect chronic underlying rotator cuff tear. 3. Severe left glenohumeral joint OA.
== END | disposition home or self-care (01) ==
LOC: RADXRMAIN 09:16
PROVIDERS: ATTEND Internal Medicine
DX: M19.012 Primary osteoarthritis, left shoulder (principal); M47.817 Spondylosis without myelopathy or radiculopathy, lumbosacral region
CPT/HCPCS: 72100

== ENCOUNTER → 2021-01-31 | Outpatient (CLI) | payer MEDICARE, OTHER ==
[~2021-01-31] MED LIST changes: +BAMLANIVIMAB (EUA) 700 MG, ETESEVIMAB (EUA) 1,400 MG in SODIUM CHLORIDE 0.9% 50 ML IVPB NR; -SODIUM CHLORIDE 0.9% 1,000 ML IV SCH; +SODIUM CHLORIDE 0.9% 50 ML IVPB NR; +SODIUM CHLORIDE 0.9% 500 ML 500 ML in EMPTY BAG 1 BAG IV PRN; -ceFAZolin 1 GM in SODIUM CHLORIDE 0.9% 250 ML IRRIGATION PRN
[2021-01-31 13:52] VITALS: RESP 16
[2021-01-31 14:53] VITALS: BP 111/64; PULSE 89; TEMP 98.3
== END ==
LOC: PROCWHC3 13:18
PROVIDERS: ATTEND Internal Medicine
DX: U07.1 COVID-19 (principal)
CPT/HCPCS: 96360; J3490; M0245

== ENCOUNTER 2021-02-03 14:51 | Inpatient (IN) | payer MEDICARE ==
[2021-02-03 16:24] LABS: Basophils % (A) 0 %; Eosinophils % (A) 0 %; HCT 40.8 % (39.0-53.0); Hyperchromasia Slight; Lymphocytes # (A) 0.8 k/uL (1.0-4.8); Lymphocytes % (A) 9 %; MCH 34.1 pg (25.0-35.0); MCHC 36.7 g/dL (31.0-37.0); MCV 92.8 fL (80.0-100.0); Mean Platelet Volume 8.2; Monocytes # (A) 0.7 k/uL (0-1.0); Monocytes % (A) 8 %; Neutrophils # (A) 7.4 k/uL (1.3-7.7); Neutrophils % (A) 79 %; Platelet Count 157 k/uL (150-450); RBC 4.39 m/uL (4.30-5.90); RDW 12.5 % (11.5-15.5); WBC 9.3 k/uL (3.8-10.6)
[2021-02-03 16:38] LABS: African American GFR (CKD) >90 (>60 ml/min/1.73 sqM); Albumin 3.5 g/dL (3.5-5.0); C Reactive Protein 8.4 mg/dL (<1.0); Carbon Dioxide 20 mmol/L (22-30); Chloride 100 mmol/L (98-107); INR 0.9 (<1.2); Non-African American GFR(CKD) 80 (>60 ml/min/1.73 sqM); Partial Thromboplastin Time 22.4 sec (22.0-30.0); Prothrombin Time 10.1 sec (9.0-12.0); Total Bilirubin 0.8 mg/dL (0.2-1.3); Total Protein 6.4 g/dL (6.3-8.2)
[2021-02-03 16:56] LABS: ALT 26 U/L (4-49); AST 57 U/L (17-59); Alkaline Phosphatase 50 U/L (38-126); Anion Gap 10 mmol/L; Blood Urea Nitrogen 40 mg/dL (9-20); Calcium 8.3 mg/dL (8.4-10.2); Glucose 138 mg/dL (74-99); LDH 1414 U/L (313-618); Magnesium 2.2 mg/dL (1.6-2.3); Sodium 130 mmol/L (137-145)
--- NOTE | 2021-02-03 17:01 | XR ---
EXAMINATION TYPE: XR Hip RT and AP Pelvis DATE OF EXAM: 02/03/2021 COMPARISON: NONE HISTORY: Hip pain TECHNIQUE: Single view FINDINGS: Pelvic ring is intact. There is bilateral hip prosthesis. Components appear in good positio n. There is chip fracture of the greater trochanter of the right femur that is probably old. IMPRESSION: No acute fracture seen.
--- NOTE | 2021-02-03 17:03 | XR ---
EXAMINATION TYPE: XR chest 1V portable DATE OF EXAM: 02/03/2021 COMPARISON: 04/10/2020 HISTORY: Pneumonia TECHNIQUE: Single view FINDINGS: There is some patchy bilateral pulmonary interstitial and airspace infiltrates. There is le ft axillary pacemaker. There are sternal wires. Costophrenic angles are fairly clear. IMPRESSION: There is bilateral patchy pneumonia which is new compared to old exam.
--- NOTE | 2021-02-03 17:42 | CT ---
EXAMINATION TYPE: CT hip RT wo con DATE OF EXAM: 02/03/2021 COMPARISON: None HISTORY: RT hip pain after fall CT DLP: 1751.6 mGycm Automated exposure control for dose reduction was used. Images obtained from the level of L3 vertebra to the mid shaft of the femur without contrast. Exam limited by metal artifact. There is right hip prosthesis. Sacroiliac joint is intact. Iliac bone appears intact. There is no evidence of a pelvic fracture. There is evidence of fracture of the grea ter trochanter of the femur measuring 4 cm in length. Age of this fracture is not clear. Separation i s 1 cm. There is no free fluid in the pelvis. Bladder distends smoothly. There are sigmoid diverticul a. There is no inguinal hernia. IMPRESSION: Large chip fracture of the greater trochanter of the right femur of uncertain age. Hip prosthesis mary beth ears in good position.
--- NOTE | 2021-02-03 18:21 | ED ---
General Adult HPI - General Chief complaint: Shortness of Breath Stated complaint: Covid+,SOB,Fall Time Seen by Provider: 02/03/21 15:40 Source: patient, RN notes reviewed Mode of arrival: wheelchair Limitations: no limitations - History of Present Illness Initial comments: 70-year-old male with a past medical history of atrial fibrillation, chest pain, heart failure presents to the emergency room for a chief complaint of shortness of breath and fall. Patient has had symptoms of COVID-19 for about a week now. He tested positive on 01/29. He had region around infusion 3 days ago on January 31. States he has been increasingly short of breath and weak. Yesterday he fell down about 3 steps and is having difficulty walking on his right hip. He does take Eliquis. He did not hit his head and is denying any headaches .Patient has no other complaints at this time including shortness of breath, chest pain, abdominal pain, nausea or vomiting, headache, or visual changes. - Related Data Home Medications Medication Instructions Recorded Confirmed Atorvastatin [Lipitor] 20 mg PO HS 12/09/19 01/31/21 Metoprolol Succinate (ER) [Toprol 25 mg PO DAILY 03/16/20 01/31/21 XL] Furosemide [Lasix] 40 mg PO QAM 04/06/20 01/31/21 Apixaban [Eliquis] 5 mg PO DAILY 01/31/21 01/31/21 Previous Rx's Medication Instructions Recorded Sacubitril/Valsartan [Entresto 24 1 each PO BID #180 tablet 12/13/19 mg-26 mg Tablet] Amiodarone [Cordarone] 100 mg PO DAILY #90 tab 03/16/20 Allergies Allergy/AdvReac Type Severity Reaction Status Date / Time No Known Allergies Allergy Verified 02/03/21 15:38 Review of Systems ROS Statement: Those systems with pertinent positive or pertinent negative responses have been documented in the HPI. ROS Other: All systems not noted in ROS Statement are negative. Past Medical History Past Medical History: Atrial Fibrillation, Chest Pain / Angina, Osteoarthritis (OA) Additional Past Medical History / Comment(s): Pt states his EF is 20%, pt states he takes lasix so he doesn't build up fluid around his heart, pt denies hx of htn or high cholesterol. History of Any Multi-Drug Resistant Organisms: None Reported Past Surgical History: AICD, Cardiac Valve Replacement, EPS, Joint Replacement, Pacemaker, Tonsillectomy Additional Past Surgical History / Comment(s): 2007 aortic valve replacement, AICD/pacer approximately 2012 at [facility], bilateral total hip arthroplasty, L eye cataract removal, colonoscopy. 03/16/20-EPS Past Anesthesia/Blood Transfusion Reactions: No Reported Reaction Type of Cardiac Device: Permanent Pacemaker, AICD Device Placement Date:: 2012 at [place] Past Psychological History: No Psychological Hx Reported Smoking Status: Former smoker Past Alcohol Use History: Daily Past Drug Use History: None Reported - Past Family History Father Family Medical History: No Reported History Mother Family Medical History: No Reported History Additional Family Medical History / Comment(s): . General Exam Limitations: no limitations General appearance: alert, in no apparent distress Head exam: Present: atraumatic Eye exam: Present: normal appearance, PERRL, EOMI. Absent: scleral icterus, conjunctival injection ENT exam: Present: normal exam, mucous membranes moist Neck exam: Present: normal inspection, full ROM. Absent: tenderness Respiratory exam: Present: normal lung sounds bilaterally. Absent: respiratory distress, wheezes Cardiovascular Exam: Present: regular rate, normal rhythm, normal heart sounds GI/Abdominal exam: Present: soft, normal bowel sounds. Absent: distended, tenderness Extremities exam: Present: full ROM (pt has full range motion of the right hip although this does elicit some pain), normal capillary refill (Capillary refill less than 2 seconds, DP pulse 2+ right lower extremity), other (Patient unable to bear much weight on the right hip for ambulation) Course Vital Signs 02/03/21 15:30 Temperature 96.9 F L Pulse Rate 91 Respiratory 18 Rate Blood Pressure 118/77 O2 Sat by Pulse 91 L Oximetry Medical Decision Making - Medical Decision Making Vitals are stable. Patient presents initially 88% on room air. He was put on 2 L of oxygen and keeps him in the low 90s however with any type of activity he drops down to the low 80s. He is not able to ambulate because of his hip pain. CBC was obtained which was unremarkable. CMP did show significant dehydration however patient does have severe heart failure so we will encourage oral rehydration. Chest x-ray shows bilateral patchy pneumonia. Head CT reveals a large chip fracture of the greater trochanter of the right femur. Hip prosthesis is in good position. Patient does not have an orthopedic surgeon in the area. Given his hypoxic respiratory failure and inability to cannulate se condary to chip fracture he will be admitted. Dr. portillo does accept the admission, requests pulmonology and orthopedic consultations. - Lab Data Result diagrams: 02/03/21 16:16 02/03/21 16:16 Lab Results 02/03/21 02/03/21 02/03/21 Range/Units 16:16 16:16 16:16 WBC 9.3 (3.8-10.6) k/uL RBC 4.39 (4.30-5.90) m/uL Hgb 15.0 (13.0-17.5) gm/dL Hct 40.8 (39.0-53.0) % MCV 92.8 (80.0-100.0) fL MCH 34.1 (25.0-35.0) pg MCHC 36.7 (31.0-37.0) g/dL RDW 12.5 (11.5-15.5) % Plt Count 157 (150-450) k/uL MPV 8.2 Neutrophils % 79 % Lymphocytes % 9 % Monocytes % 8 % Eosinophils % 0 % Basophils % 0 % Neutrophils # 7.4 (1.3-7.7) k/uL Lymphocytes # 0.8 L (1.0-4.8) k/uL Monocytes # 0.7 (0-1.0) k/uL Eosinophils # 0.0 (0-0.7) k/uL Basophils # 0.0 (0-0.2) k/uL Hyperchromasia Slight PT 10.1 (9.0-12.0) sec INR 0.9 (<1.2) APTT 22.4 (22.0-30.0) sec Sodium 130 L (137-145) mmol/L Potassium 4.0 (3.5-5.1) mmol/L Chloride 100 (98-107) mmol/L Carbon Dioxide 20 L (22-30) mmol/L Anion Gap 10 mmol/L BUN 40 H (9-20) mg/dL Creatinine 0.97 (0.66-1.25) mg/dL Est GFR (CKD-EPI)AfAm >90 (>60 ml/min/1.73 sqM) Est GFR (CKD-EPI)NonAf 80 (>60 ml/min/1.73 sqM) Glucose 138 H (74-99) mg/dL Calcium 8.3 L (8.4-10.2) mg/dL Magnesium 2.2 (1.6-2.3) mg/dL Total Bilirubin 0.8 (0.2-1.3) mg/dL AST 57 (17-59) U/L ALT 26 (4-49) U/L Alkaline Phosphatase 50 (38-126) U/L Lactate Dehydrogenase 1414 H (313-618) U/L C-Reactive Protein 8.4 H (<1.0) mg/dL Total Protein 6.4 (6.3-8.2) g/dL Albumin 3.5 (3.5-5.0) g/dL Disposition Clinical Impression: Dehydration, COVID-19, Pneumonia due to COVID-19 virus, Acute respiratory failure with hypoxia, Hyponatremia Narrative: greater trochanteric chip fracture, right side Disposition: ADMITTED IP TO THIS HOSP Is patient prescribed a controlled substance at d/c from ED?: No Referrals: Marjorie Marks MD [Primary Care Provider] - 1-2 days Time of Disposition: 18:33
[2021-02-03] MEDS ORDERED: HYDROmorphone 0.5 MG/0.5 ML SYRINGE IVP STA (18:30)
[2021-02-03] MEDS ORDERED: NALOXONE 0.4 MG/ML 1 ML VIAL IV PRN (18:34)
[2021-02-03] MEDS ORDERED: HYDROmorphone 0.5 MG/0.5 ML SYRINGE IVP PRN (18:34)
[2021-02-03] MEDS ORDERED: ONDANSETRON 4 MG/2 ML VIAL IVP PRN (18:34)
[2021-02-03] MEDS ORDERED: DEXAMETHASONE SOD PHOSPHATE 10 MG/ML 1 ML VIAL IVP STA (18:36)
[2021-02-03] MEDS ORDERED: FLUTICASONE 50MCG/SPRAY NASAL 16GM EA NOSTRIL PRN (23:42)
[2021-02-04] MEDS: FAMOTIDINE 20 MG/2 ML VIAL IV SCH ×2 (08:38→20:04)
[2021-02-04] MEDS: ASCORBIC ACID 500 MG TAB PO SCH (08:39)
[2021-02-04] MEDS: ZINC SULFATE 220 MG CAP PO SCH (08:39)
[2021-02-04] MEDS: DEXAMETHASONE SOD PHOSPHATE 10 MG/ML 1 ML VIAL IVP SCH (08:39)
[2021-02-04] MEDS: FUROSEMIDE 40 MG TAB PO SCH (08:39)
[2021-02-04] MEDS: ATORVASTATIN 20 MG TAB PO SCH (08:39)
[2021-02-04] MEDS: CHOLECALCIFEROL 125 MCG (5000 IU) TABLET PO SCH (08:39)
[2021-02-04] MEDS: AMIODARONE 100 MG TAB PO SCH (08:39)
--- NOTE | 2021-02-04 10:50 | P.GSCN ---
History of Present Illness Consult date: 02/04/21 Reason for Consult: right hip periprosthetic fracture History of present illness: Pt fell from standing height onto right hip on 02/02/21. Presents with hip pain and difficulty ambulating. Has history of right total hip s/p 2 stage revision 2/2 [address] Sarkar in [place]. No problems in last 20 years with the hip. Community ambulator. Past Medical History Past Medical History: Atrial Fibrillation, Chest Pain / Angina, Osteoarthritis (OA) Additional Past Medical History / Comment(s): Pt states his EF is 20%, pt states he takes lasix so he doesn't build up fluid around his heart, pt denies hx of htn or high cholesterol. History of Any Multi-Drug Resistant Organisms: None Reported Past Surgical History: AICD, Cardiac Valve Replacement, EPS, Joint Replacement, Pacemaker, Tonsillectomy Additional Past Surgical History / Comment(s): 2007 aortic valve replacement, AICD/pacer approximately 2012 at [facility], bilateral total hip arthroplasty, L eye cataract removal, colonoscopy. 03/16/20-EPS Past Anesthesia/Blood Transfusion Reactions: No Reported Reaction Type of Cardiac Device: Permanent Pacemaker, AICD Device Placement Date:: 2012 at [place] Past Psychological History: No Psychological Hx Reported Additional Psychological History / Comment(s): Pt resides with his spouse. He is independent. Smoking Status: Former smoker Past Alcohol Use History: Daily Additional Past Alcohol Use History / Comment(s): Pt started smoking in approximately 1970 and quit in 1972. He states he drinks 2 beers a day. Past Drug Use History: None Reported - Past Family History Father Family Medical History: No Reported History Mother Family Medical History: No Reported History Additional Family Medical History / Comment(s): . Medications and Allergies Home Medications Medication Instructions Recorded Confirmed Type Atorvastatin [Lipitor] 20 mg PO DAILY 12/09/19 02/03/21 History Amiodarone [Cordarone] 100 mg PO DAILY #90 tab 03/16/20 02/03/21 Rx Metoprolol Succinate (ER) [Toprol 25 mg PO BID 03/16/20 02/03/21 History XL] Furosemide [Lasix] 40 mg PO DAILY 04/06/20 02/03/21 History Apixaban [Eliquis] 5 mg PO BID 01/31/21 02/03/21 History Fluticasone Propionate [Flonase 1 spray EA NOSTRIL TID PRN 02/03/21 02/03/21 History Allergy Relief] Sacubitril/Valsartan [Entresto 24 1 tab PO BID 02/03/21 02/03/21 History mg-26 mg Tablet] Sodium Chloride [[place]] 1 spray EA NOSTRIL TID PRN 02/03/21 02/03/21 History Allergies Allergy/AdvReac Type Severity Reaction Status Date / Time No Known Allergies Allergy Verified 02/03/21 18:53 Surgical - Exam Osteopathic Statement: *. No significant issues noted on an osteopathic structural exam other than those noted in the History and Physical/Consult. Vital Signs Temp Pulse Resp BP Pulse Ox 96.9 F L 91 18 118/77 91 L 02/03/21 15:30 02/03/21 15:30 02/03/21 15:30 02/03/21 15:30 02/03/21 15:30 - Musculoskeletal other (right Hip pain with log roll. Range of motion limited secondary to pain but able to wiggle toes and plantar/dorsiflex ankle. Cap refill brisk. Sensation intact distally) Results - Labs 02/03/21 16:16 02/03/21 16:16 Abnormal Lab Results - Last 24 Hours (Table) 02/03/21 02/03/21 02/03/21 Range/Units 16:16 16:16 16:16 Lymphocytes # 0.8 L (1.0-4.8) k/uL Sodium 130 L (137-145) mmol/L Carbon Dioxide 20 L (22-30) mmol/L BUN 40 H (9-20) mg/dL Glucose 138 H (74-99) mg/dL Calcium 8.3 L (8.4-10.2) mg/dL Lactate Dehydrogenase 1414 H (313-618) U/L C-Reactive Protein 8.4 H (<1.0) mg/dL Procalcitonin 0.11 H (0.02-0.09) ng/mL Diabetes panel 02/03/21 Range/Units 16:16 Sodium 130 L (137-145) mmol/L Potassium 4.0 (3.5-5.1) mmol/L Chloride 100 (98-107) mmol/L Carbon Dioxide 20 L (22-30) mmol/L BUN 40 H (9-20) mg/dL Creatinine 0.97 (0.66-1.25) mg/dL Glucose 138 H (74-99) mg/dL Calcium 8.3 L (8.4-10.2) mg/dL AST 57 (17-59) U/L ALT 26 (4-49) U/L Alkaline Phosphatase 50 (38-126) U/L Total Protein 6.4 (6.3-8.2) g/dL Albumin 3.5 (3.5-5.0) g/dL Calcium panel 02/03/21 Range/Units 16:16 Calcium 8.3 L (8.4-10.2) mg/dL Albumin 3.5 (3.5-5.0) g/dL Pituitary panel 02/03/21 Range/Units 16:16 Sodium 130 L (137-145) mmol/L Potassium 4.0 (3.5-5.1) mmol/L Chloride 100 (98-107) mmol/L Carbon Dioxide 20 L (22-30) mmol/L BUN 40 H (9-20) mg/dL Creatinine 0.97 (0.66-1.25) mg/dL Glucose 138 H (74-99) mg/dL Calcium 8.3 L (8.4-10.2) mg/dL Adrenal panel 02/03/21 Range/Units 16:16 Sodium 130 L (137-145) mmol/L Potassium 4.0 (3.5-5.1) mmol/L Chloride 100 (98-107) mmol/L Carbon Dioxide 20 L (22-30) mmol/L BUN 40 H (9-20) mg/dL Creatinine 0.97 (0.66-1.25) mg/dL Glucose 138 H (74-99) mg/dL Calcium 8.3 L (8.4-10.2) mg/dL Total Bilirubin 0.8 (0.2-1.3) mg/dL AST 57 (17-59) U/L ALT 26 (4-49) U/L Alkaline Phosphatase 50 (38-126) U/L Total Protein 6.4 (6.3-8.2) g/dL Albumin 3.5 (3.5-5.0) g/dL - Imaging CT scan - pelvis: image reviewed (right periprosthetic greater trochanter fracture, minimally displaced no evidence of subsidance or hardware failure) Additional studies: XR pelvis, right hip - reviewed, minimally displaced periprosthetic greater trochanter fracture Assessment and Plan (1) Periprosthetic fracture around internal prosthetic right hip joint Current Visit: Yes Status: Acute Code(s): M97.01XA - PERIPROSTH FRACTURE AROUND INTERNAL PROSTH R HIP JT, INIT SNOMED Code(s): 026358138 Plan: Fracture is minimally displaced and prosthesis looks stable. Will treat nonoperatively. Touchdown weight bearing and no adduction (abduction brace ordered). Will follow up with Dr. Gilles Hidalgo in the offcie for serial XR's.
[2021-02-04] MEDS: ALBUTEROL HFA INHALER INHALATION PRN (17:13)
--- NOTE | 2021-02-04 18:21 | P.CNPUL ---
History of Present Illness Consult date: 02/04/21 Requesting physician: Sandro E Miesha Reason for consult: dyspnea, abnormal CXR/CT Chief complaint: shortness of breath, cough, congestion History of present illness: This is a very pleasant 70-year-old gentleman with a known history of atrial fibrillation anticoagulated with Eliquis, congestive heart failure, hyperlipidemia, ischemic cardiomyopathy with ejection fraction 20%, status post AICD/pacer implant, for a number smoker, daily alcohol use. He started having symptoms of shortness of breath approximate 8 or 9 days ago. He tested positive for COVID-19 on 01/29/2021. He received monoclonal antibodies on 01/31/2021. He presented here yesterday with complaints of increasing shortness of breath. He has not been vaccinated. He did fall while carrying somewhat and injured his right hip. x-ray revealed no acute fracture. A computed tomography scan of the hip revealed a large chip fracture of the greater trochanter of the right femur. Hip prosthesis in good position. A chest x-ray did reveal bilateral patchy pneumonia. He is seen today in consultation on the regular medical floor. He is currently resting comfortably in bed. Awake and alert in no acute distress. Denies any worsening shortness of breath at this time. No cough or congestion. He is maintaining good O2 saturations in the 90s on 2 L/m per nasal cannula. white count 9.3. Hemoglobin 15.0. Lymphocytes 0.8. Sodium 1:30. Potassium 4.0. Creatinine 0.97. Glucose 138. Ferritin 2157. LDH 1414. C-reactive protein 8.4. Pro-calcitonin 0.11. He's been initiated on Decadron, vitamin supplements, Eliquis. Review of Systems REVIEW OF SYSTEMS: CONSTITUTIONAL: Generalized weakness, fatigue. Denies any recent significant weight loss or weight gain. EYES: Denies change in vision. EARS, NOSE, MOUTH, THROAT: Denies headaches, denies sore throat. CARDIOVASCULAR: Denies chest pain, palpitations or syncopal episodes. RESPIRATORY: Positive for shortness of breath, cough, congestion no hemoptysis. GASTROINTESTINAL: Denies change in appetite, denies abdominal pain GENITOURINARY: Denies hematuria, denies infections. MUSKULOSKELETAL: Positive for right hip pain. INTEGUMENTARY: Denies rash, denies eczema. NEUROLOGICAL: Denies recent memory loss, no recent seizure activity. PSYCHIATRIC: Denies anxiety, denies depression. HEMATOLOGIC/LYMPHATIC: Denies anemia, denies enlarged lymph nodes. Past Medical History Past Medical History: Atrial Fibrillation, Chest Pain / Angina, Osteoarthritis (OA) Additional Past Medical History / Comment(s): Pt states his EF is 20%, pt states he takes lasix so he doesn't build up fluid around his heart, pt denies hx of htn or high cholesterol. History of Any Multi-Drug Resistant Organisms: None Reported Past Surgical History: AICD, Cardiac Valve Replacement, EPS, Joint Replacement, Pacemaker, Tonsillectomy Additional Past Surgical History / Comment(s): 2007 aortic valve replacement, AICD/pacer approximately 2012 at [facility], bilateral total hip arthroplasty, L eye cataract removal, colonoscopy. 03/16/20-EPS Past Anesthesia/Blood Transfusion Reactions: No Reported Reaction Type of Cardiac Device: Permanent Pacemaker, AICD Device Placement Date:: 2012 at [place] Past Psychological History: No Psychological Hx Reported Additional Psychological History / Comment(s): Pt resides with his spouse. He is independent. Smoking Status: Former smoker Past Alcohol Use History: Daily Additional Past Alcohol Use History / Comment(s): Pt started smoking in approximately 1969 and quit in 1972. He states he drinks 2 beers a day. Past Drug Use History: None Reported - Past Family History Father Family Medical History: No Reported History Mother Family Medical History: No Reported History Additional Family Medical History / Comment(s): . Medications and Allergies Home Medications Medication Instructions Recorded Confirmed Type Atorvastatin [Lipitor] 20 mg PO DAILY 12/09/19 02/03/21 History Amiodarone [Cordarone] 100 mg PO DAILY #90 tab 03/16/20 02/03/21 Rx Metoprolol Succinate (ER) [Toprol 25 mg PO BID 03/16/20 02/03/21 History XL] Furosemide [Lasix] 40 mg PO DAILY 04/06/20 02/03/21 History Apixaban [Eliquis] 5 mg PO BID 01/31/21 02/03/21 History Fluticasone Propionate [Flonase 1 spray EA NOSTRIL TID PRN 02/03/21 02/03/21 History Allergy Relief] Sacubitril/Valsartan [Entresto 24 1 tab PO BID 02/03/21 02/03/21 History mg-26 mg Tablet] Sodium Chloride [[place]] 1 spray EA NOSTRIL TID PRN 02/03/21 02/03/21 History Allergies Allergy/AdvReac Type Severity Reaction Status Date / Time No Known Allergies Allergy Verified 02/03/21 18:53 Physical Exam Vitals: Vital Signs Temp Pulse Pulse Resp BP BP Pulse Ox 02/04/21 13:40 97.1 F L 75 17 119/73 96 02/04/21 08:47 97.6 F 72 18 108/68 93 L 02/04/21 07:50 67 16 02/04/21 05:20 97.9 F 67 16 112/73 98 02/04/21 00:50 97.7 F 70 17 116/76 90 L 02/04/21 00:00 80 18 117/79 95 02/03/21 23:00 81 18 110/71 95 02/03/21 22:00 98.3 F 77 18 116/72 95 02/03/21 18:09 78 18 122/82 93 L Intake and Output 02/04/21 02/04/21 02/04/21 06:59 14:59 22:59 Output Total 400 Balance -400 Output: Urine 400 Other: Weight 108.8 kg Results GENERAL EXAM: Alert, pleasant 70-year-old gentleman, on 2 L nasal cannula, fairly comfortable in no apparent distress. HEAD: Normocephalic. EYES: Normal reaction of pupils, equal size. NOSE: Clear with pink turbinates. THROAT: No erythema or exudates. NECK: No masses, no JVD. CHEST: No chest wall deformity. LUNGS: Equal air entry with coarse crackles in the posterior bases. CVS: S1 and S2 normal with no audible murmur, regular rhythm. ABDOMEN: No hepatosplenomegaly, normal bowel sounds, no guarding or rigidity. SPINE: No scoliosis or deformity SKIN: No rashes CENTRAL NERVOUS SYSTEM: No focal deficits, tone is normal in all 4 extremities. EXTREMITIES: There is no peripheral edema. No clubbing, no cyanosis. Peripheral pulses are intact. - Laboratory Findings CBC and BMP: 02/03/21 16:16 02/03/21 16:16 PT/INR, D-dimer PT 10.1 sec (9.0-12.0) 02/03/21 16:16 INR 0.9 (<1.2) 02/03/21 16:16 Abnormal lab findings: Abnormal Labs 02/03/21 02/03/21 02/03/21 16:16 16:16 16:16 Lymphocytes # 0.8 L Sodium 130 L Carbon Dioxide 20 L BUN 40 H Glucose 138 H Calcium 8.3 L Ferritin 2157.0 H Lactate Dehydrogenase 1414 H C-Reactive Protein 8.4 H Procalcitonin 0.11 H - Diagnostic Findings Chest x-ray: image reviewed Assessment and Plan Assessment: 1 Acute hypoxic respiratory failure secondary to COVID-19 pneumonia. Symptoms started 8-9 days ago. Tested positive on 01/29/2021. Received monoclonal antibodies on 01/31/2021. Not vaccinated. On 2 L nasal cannula. Outside the window for Remdesivir. 2 Right hip pain status post fall without loss of consciousness. Large chip off the greater trochanter of the right femur. Hip prosthesis in good position. 3 Atrial fibrillation, anticoagulated with Eliquis 4 Ischemic cardiomyopathy with ejection fraction 20%, status post AICD placement 5 History of aortic valve replacement 6 Osteoarthritis with previous joint replacements 7 Former smoker 8 Daily alcohol use Plan: The patient was seen and evaluated by Dr. Cruz Chest x-ray and labs reviewed Continue Decadron, vitamin supplements Anticoagulated with Eliquis Titrate the FiO2 as tolerated We will continue to follow and make further recommendations based on his clini debbie status I, the cosigning physician, performed a history & physical examination of the patient. Lungs sounds crackles in the posterior bases. Maintaining good O2 saturations in the 90s on 2 L/m per nasal cannular. I discussed the assessment and plan of care with my nurse practitioner, Therese Barreto. I attest to the above consultation as dictated by her. Time with Patient: Greater than 30
--- NOTE | 2021-02-04 19:18 | P.HPIM ---
History of Present Illness This is a pleasant 70 years old male with past medical history of Atrial Fibrillation on Eliquis, Osteoarthritis , chronic systolic CHF with cardiomyopathy and ejection fraction 20%, status post AICD. Status post cardiac valve replacement. Status post pacemaker Patient presents because of dyspnea of one week ago prior to Friday. With mainly dry and sometimes total phlegm. No chest pain. His symptoms started about 8 days ago. Patient is not vaccinated. He was diagnosed with Covid last Friday and plan have antibiotic infusion He has little diarrhea 3-4 times per day He hasn't been eating well for the last 3 days. And he sleeps a lot. On admission patient is hypoxemic needing 2 L of oxygen to keep saturating 93%, he is 91% on room air. CBC showing mild lymphopenia. INR is normal. Sodium 1:30, creatinine normal 0.9, ferritin elevated at 2157, LDH elevated at 1414 and C-reactive protein elevated 8.4. Liver enzymes are not elevated. proCalcitonin slightly elevated at 0.11 CT of the right hip without contrast showing large chip fracture of the greater trochanter of the right femur. Hip prosthesis in good position EKG showing atrial paced rhythm at 87 Chest x-ray: Bilateral parenchymal pneumonia Review of Systems CONSTITUTIONAL: No fever, no malaise, no fatigue. HEENT: No recent visual problems or hearing problems. Denied any sore throat. CARDIOVASCULAR: No orthopnea, PND, no palpitations, no syncope. PULMONARY: No shortness of breath, no cough, no hemoptysis. GASTROINTESTINAL: No diarrhea, no nausea, no vomiting, no abdominal pain. Normoactive bowel sounds. NEUROLOGICAL: No headaches, no weakness, no numbness. HEMATOLOGICAL: Denies any bleeding or petechiae. GENITOURINARY: Denies any burning micturition, frequency, or urgency. MUSCULOSKELETAL/RHEUMATOLOGICAL: Denies any joint pain, swelling, or any muscle pain. ENDOCRINE: Denies any polyuria or polydipsia. Past Medical History Past Medical History: Atrial Fibrillation, Chest Pain / Angina, Osteoarthritis (OA) Additional Past Medical History / Comment(s): Pt states his EF is 20%, pt states he takes lasix so he doesn't build up fluid around his heart, pt denies hx of htn or high cholesterol. History of Any Multi-Drug Resistant Organisms: None Reported Past Surgical History: AICD, Cardiac Valve Replacement, EPS, Joint Replacement, Pacemaker, Tonsillectomy Additional Past Surgical History / Comment(s): 2007 aortic valve replacement, AICD/pacer approximately 2012 at [facility], bilateral total hip arthroplasty, L eye cataract removal, colonoscopy. 03/16/20-EPS Past Anesthesia/Blood Transfusion Reactions: No Reported Reaction Type of Cardiac Device: Permanent Pacemaker, AICD Device Placement Date:: 2012 at [place] Past Psychological History: No Psychological Hx Reported Additional Psychological History / Comment(s): Pt resides with his spouse. He is independent. Smoking Status: Former smoker Past Alcohol Use History: Daily Additional Past Alcohol Use History / Comment(s): Pt started smoking in approximately 1969 and quit in 1972. He states he drinks 2 beers a day. Past Drug Use History: None Reported - Past Family History Father Family Medical History: No Reported History Mother Family Medical History: No Reported History Additional Family Medical History / Comment(s): . Medications and Allergies Home Medications Medication Instructions Recorded Confirmed Type Atorvastatin [Lipitor] 20 mg PO DAILY 12/09/19 02/03/21 History Amiodarone [Cordarone] 100 mg PO DAILY #90 tab 03/16/20 02/03/21 Rx Metoprolol Succinate (ER) [Toprol 25 mg PO BID 03/16/20 02/03/21 History XL] Furosemide [Lasix] 40 mg PO DAILY 04/06/20 02/03/21 History Apixaban [Eliquis] 5 mg PO BID 01/31/21 02/03/21 History Fluticasone Propionate [Flonase 1 spray EA NOSTRIL TID PRN 02/03/21 02/03/21 History Allergy Relief] Sacubitril/Valsartan [Entresto 24 1 tab PO BID 02/03/21 02/03/21 History mg-26 mg Tablet] Sodium Chloride [[place]] 1 spray EA NOSTRIL TID PRN 02/03/21 02/03/21 History Allergies Allergy/AdvReac Type Severity Reaction Status Date / Time No Known Allergies Allergy Verified 02/03/21 18:53 Physical Exam Vitals: Vital Signs Temp Pulse Pulse Resp BP BP Pulse Ox 02/04/21 08:47 97.6 F 72 18 108/68 93 L 02/04/21 07:50 67 16 02/04/21 05:20 97.9 F 67 16 112/73 98 02/04/21 00:50 97.7 F 70 17 116/76 90 L 02/04/21 00:00 80 18 117/79 95 02/03/21 23:00 81 18 110/71 95 02/03/21 22:00 98.3 F 77 18 116/72 95 02/03/21 18:09 78 18 122/82 93 L 02/03/21 17:30 86 L 02/03/21 15:30 96.9 F L 91 18 118/77 91 L Intake and Output 02/03/21 02/04/21 02/04/21 22:59 06:59 14:59 Output Total 400 Balance -400 Output: Urine 400 Other: Weight 108.862 kg 108.8 kg GENERAL: The patient is alert and oriented x3, not in any acute distress. Well developed, well nourished. HEENT: Pupils are round and equally reacting to light. EOMI. No scleral icterus. No conjunctival pallor. Normocephalic, atraumatic. No pharyngeal erythema. No thyromegaly. CARDIOVASCULAR: S1 and S2 present. No murmurs, rubs, or gallops. PULMONARY: Chest is clear to auscultation, no wheezing or crackles. ABDOMEN: Soft, nontender, nondistended, normoactive bowel sounds. No palpable organomegaly. MUSCULOSKELETAL: No joint swelling or deformity. EXTREMITIES: No cyanosis, clubbing, or pedal edema. NEUROLOGICAL: Gross neurological examination did not reveal any focal deficits. SKIN: No rashes. No petechiae Results CBC & Chem 7: 02/03/21 16:16 02/03/21 16:16 Labs: Abnormal Lab Results - Last 24 Hours (Table) 02/03/21 02/03/21 02/03/21 Range/Units 16:16 16:16 16:16 Lymphocytes # 0.8 L (1.0-4.8) k/uL Sodium 130 L (137-145) mmol/L Carbon Dioxide 20 L (22-30) mmol/L BUN 40 H (9-20) mg/dL Glucose 138 H (74-99) mg/dL Calcium 8.3 L (8.4-10.2) mg/dL Lactate Dehydrogenase 1414 H (313-618) U/L C-Reactive Protein 8.4 H (<1.0) mg/dL Procalcitonin 0.11 H (0.02-0.09) ng/mL Thrombosis Risk Factor Assmnt - Choose All That Apply Any of the Below Risk Factors Present?: No Each Risk Factor Represents 2 Points: Age 61-74 years Thrombosis Risk Factor Assessment Total Risk Factor Score: 2 Thrombosis Risk Factor Assessment Level: Low Risk Assessment and Plan Assessment: Bilateral Covid pneumonia Acute hypoxic respiratory failure Increased inflammatory markers Fall Periprosthetic fracture around the internal prosthetic right hip joint chronic systolic CHF with cardiomyopathy and ejection fraction 20%, status post AICD. Status post cardiac valve replacement. Status post pacemaker Plan: This is a pleasant 70 years old male who presents with covid pneumonia Continue with dexamethasone Continue with vitamin C, vitamin D and zinc Pulmonary consult Orthopedic consult evaluated the patient and recommended no surgical intervention Lower dose of metoprolol 25-12.5 because of borderline blood pressure. hold entresto Labs and medication were reviewed.. Continue same treatment. Continue with symptomatic treatment. Resume home medication. Monitor lytes and vitals. DVT and GI prophylaxis. Further recommendations depends on the clinical course of the patient DVT prophylaxis: Eliquis GI Prophylaxis: Pepcid Prognosis is guarded
[2021-02-04] MEDS: APIXABAN 5 MG TAB PO SCH (20:04)
[2021-02-04] MEDS: METOPROLOL TARTRATE 12.5 MG TAB PO SCH (20:04)
--- NOTE | 2021-02-05 07:34 | XR ---
EXAMINATION TYPE: XR chest 1V portable DATE OF EXAM: 02/05/2021 HISTORY: Shortness of breath. COMPARISON: 02/03/2021 TECHNIQUE: Single view of the chest is submitted. FINDINGS: Demonstrated are scattered senescent parenchymal change. Patchy mid and lower lung zone infiltrates. The heart is stable. Hilar and mediastinal structures are within normal limits. Degenerative changes are seen of the dorsal spine. IMPRESSION: 1. Stable chest
[2021-02-05] MEDS: AMIODARONE 100 MG TAB PO SCH (07:49)
[2021-02-05] MEDS: ZINC SULFATE 220 MG CAP PO SCH (07:49)
[2021-02-05] MEDS: METOPROLOL TARTRATE 12.5 MG TAB PO SCH ×2 (07:49→20:59)
[2021-02-05] MEDS: ASCORBIC ACID 500 MG TAB PO SCH (07:49)
[2021-02-05] MEDS: CHOLECALCIFEROL 125 MCG (5000 IU) TABLET PO SCH (07:49)
[2021-02-05] MEDS: FUROSEMIDE 40 MG TAB PO SCH (07:49)
[2021-02-05] MEDS: APIXABAN 5 MG TAB PO SCH ×2 (07:50→20:59)
[2021-02-05] MEDS: ATORVASTATIN 20 MG TAB PO SCH (07:50)
[2021-02-05] MEDS: DEXAMETHASONE SOD PHOSPHATE 10 MG/ML 1 ML VIAL IVP SCH (07:51)
[2021-02-05] MEDS: FAMOTIDINE 20 MG/2 ML VIAL IV SCH ×2 (07:52→20:59)
[2021-02-05] MEDS: HYDROcodone/APAP 5-325MG 1 EACH TAB PO PRN ×2 (09:50→17:28)
[2021-02-05] MEDS: ALBUTEROL HFA INHALER INHALATION PRN (11:14)
[2021-02-05 11:24] LABS: C Reactive Protein 4.8 mg/dL (0.00-0.80)
--- NOTE | 2021-02-05 13:03 | P.PN ---
Subjective Progress Note Date: 02/05/21 Principal diagnosis: Dyspnea On 02/05/2021 patient seen in follow-up on medical surgical floor. he is sitting up in the chair, breathing comfortably, he remains on 2 L of oxygen and his pulse ox is 94%, and his oxygen demand has remained stable, and remained minimal at 2 L, he is afebrile, vital signs have been stable, no complaints of chest discomfort, no nausea or vomiting, no abdominal pain, he is tolerating oral intake, she was outside the window for Remdesivir, he status post monoclonal antibody infusion. he is currently Decadron 6 mg daily, and he is on oral anticoagulation in the form of Eliquis for history of atrial fibrillation. Today's labs have been reviewed, and his d-dimer is 3.09, and his inflammatory markers are significantly improved on today's labs. Objective - Vital Signs Vital signs: Vital Signs Temp 97.4 F L 02/05/21 10:00 Pulse 69 02/05/21 10:00 Resp 17 02/05/21 10:00 BP 111/73 02/05/21 10:00 Pulse Ox 94 L 02/05/21 10:00 Intake & Output 02/04/21 02/05/21 02/05/21 18:59 06:59 18:59 Intake Total 750 Output Total 600 Balance 750 -600 Weight 106 kg Intake: Oral 750 Output: Urine 600 Other: # Voids 4 1 - Exam GENERAL EXAM: Alert, very pleasant, 70-year-old white male, on 2 L of oxygen with a pulse ox of 90-91% comfortable in no apparent distress. HEAD: Normocephalic/atraumatic. EYES: Normal reaction of pupils, equal size. Conjunctiva pink, sclera white. NOSE: Clear with pink turbinates. THROAT: No erythema or exudates. NECK: No masses, no JVD, no thyroid enlargement, no adenopathy. CHEST: No chest wall deformity. Symmetrical expansion. LUNGS: Equal air entry with bibasilar crackles CVS: Regular rate and rhythm, normal S1 and S2, no gallops, no murmurs, no rubs ABDOMEN: Soft, nontender. No hepatosplenomegaly, normal bowel sounds, no guarding or rigidity. EXTREMITIES: No clubbing, no edema, no cyanosis, 2+ pulses and upper and lower extremities. MUSCULOSKELETAL: Muscle strength and tone normal. SPINE: No scoliosis or deformity SKIN: No rashes CENTRAL NERVOUS SYSTEM: Alert and oriented -3. No focal deficits, tone is normal in all 4 extremities. PSYCHIATRIC: Alert and oriented -3. Appropriate affect. Intact judgment and insight. - Labs CBC & Chem 7: 02/03/21 16:16 02/03/21 16:16 Labs: Abnormal Lab Results - Last 24 Hours (Table) 02/05/21 02/05/21 Range/Units 07:05 07:05 D-Dimer 3.06 H (<0.60) mg/L FEU Lactate Dehydrogenase 417 H (120-246) U/L C-Reactive Protein 4.80 H (0.00-0.80) mg/dL Assessment and Plan Plan: #1. Acute hypoxic respiratory failure secondary to COVID-19 pneumonia. Symptoms started 8-9 days ago. Tested positive on 01/29/2021. Received monoclonal antibodies on 01/31/2021. Not vaccinated. On 2 L nasal cannula. Outside the window for Remdesivir. #2.Right hip pain status post fall without loss of consciousness. Large chip off the greater trochanter of the right femur. Hip prosthesis in good position. #3. Atrial fibrillation, anticoagulated with Eliquis #4. Ischemic cardiomyopathy with ejection fraction 20%, status post AICD placement #5. History of aortic valve replacement #6. Osteoarthritis with previous joint replacements #7. Former smoker #8. Daily alcohol use Plan: Continue Decadron Continue oral anticoagulation in the form of Eliquis Patient remains on minimal supplemental oxygen Vital signs are stable Inflammatory markers are improving on today's labs We'll continue to follow his clinical course and make further recommendations I performed a history & physical examination of the patient and discussed their management with my nurse practitioner, Rajwinder Boyer. I reviewed the nurse practitioner's note and agree with the documented findings and plan of care. Lung sounds are positive for diffuse crackles throughout the lung morfin. The findings and the impression was discussed with the patient. I attest to the documentation by the nurse practitioner. Time with Patient: Less than 30
--- NOTE | 2021-02-05 17:01 | ECHOF ---
Referral Reason:shortness of breath MEASUREMENTS -------- HEIGHT: 182.9 cm WEIGHT: 108.9 kg BP: RVIDd: 3.5 cm (< 3.3) IVSd: 1.2 cm (0.6 - 1.1) LVIDd: 6.2 cm (3.9 - 5.3) LVPWd: 1.3 cm (0.6 - 1.1) IVSs: 1.6 cm LVIDs: 5.3 cm LVPWs: 1.7 cm LA Diam: 4.3 cm (2.7 - 3.8) AV maxP.62 mmHg AV meanP.82 mmHg FINDINGS -------- Paced rhythm. Pt is COVID Positive: Echo for SOB. There is mild concentric left ventricular hypertrophy. There is severe global hypokinesis of LV . Overall left ventricular systolic function is severely impaired with, an EF < 20%. The right ventricle is normal in size. The left atrium is mildly dilated. The right atrial size is normal. The aortic valve was not well visualized. There is moderate aortic stenosis present. Peak/mean gr adient across the Aortic Valve is 39.62mmHg / 21.82mmHg. Hx of Bioprosthetic AV. Mild mitral regurgitation is present. Mild tricuspid regurgitation present. Right ventricular systolic pressure is normal at < 35 mmHg. The pulmonic valve was not well visualized. There is no pericardial effusion. CONCLUSIONS -------- 1. Pt is COVID Positive: Echo for SOB. 2. There is mild concentric left ventricular hypertrophy. 3. There is severe global hypokinesis of LV . 4. Overall left ventricular systolic function is severely impaired with, an EF < 20%. 5. The right ventricle is normal in size. 6. The left atrium is mildly dilated. 7. The right atrial size is normal. 8. The aortic valve was not well visualized. 9. There is moderate aortic stenosis present. 10. Peak/mean gradient across the Aortic Valve is 39.62mmHg / 21.82mmHg. 11. Mild mitral regurgitation is present. 12. Mild tricuspid regurgitation present. 13. The pulmonic valve was not well visualized. 14. There is no pericardial effusion. ICE SKATER: Dinora Bello RDCS
[2021-02-06 03:59] VITALS: TEMP 97.5
[2021-02-06 07:00] LABS: ALT 20 U/L (4-49); AST 29 U/L (17-59); African American GFR (CKD) >90 (>60 ml/min/1.73 sqM); Albumin 2.9 g/dL (3.5-5.0); Alkaline Phosphatase 41 U/L (38-126); Anion Gap 7 mmol/L; Blood Urea Nitrogen 26 mg/dL (9-20); Calcium 8.1 mg/dL (8.4-10.2); Carbon Dioxide 23 mmol/L (22-30); Chloride 100 mmol/L (98-107); Globulin 2.8 g/dL; Glucose 106 mg/dL (74-99); Non-African American GFR(CKD) 86 (>60 ml/min/1.73 sqM); Potassium 4.7 mmol/L (3.5-5.1); Sodium 130 mmol/L (137-145); Total Bilirubin 0.6 mg/dL (0.2-1.3); Total Protein 5.7 g/dL (6.3-8.2)
[2021-02-06 07:26] LABS: C Reactive Protein 3.1 mg/dL (<1.0)
[2021-02-06] MEDS: CHOLECALCIFEROL 125 MCG (5000 IU) TABLET PO SCH (07:52)
[2021-02-06] MEDS: ATORVASTATIN 20 MG TAB PO SCH (07:52)
[2021-02-06] MEDS: AMIODARONE 100 MG TAB PO SCH (07:52)
[2021-02-06] MEDS: DEXAMETHASONE SOD PHOSPHATE 10 MG/ML 1 ML VIAL IVP SCH (07:52)
[2021-02-06] MEDS: FAMOTIDINE 20 MG/2 ML VIAL IV SCH (07:52)
[2021-02-06] MEDS: ZINC SULFATE 220 MG CAP PO SCH (07:52)
[2021-02-06] MEDS: FUROSEMIDE 40 MG TAB PO SCH (07:52)
[2021-02-06] MEDS: APIXABAN 5 MG TAB PO SCH (07:53)
[2021-02-06] MEDS: ASCORBIC ACID 500 MG TAB PO SCH (07:53)
[2021-02-06] MEDS: METOPROLOL TARTRATE 12.5 MG TAB PO SCH (07:53)
[2021-02-06 12:14] VITALS: BP 117/78; PULSE 67; RESP 18
--- NOTE | 2021-02-06 13:04 | P.PN ---
Subjective Progress Note Date: 02/06/21 Principal diagnosis: Dyspnea On 02/05/2021 patient seen in follow-up on medical surgical floor. he is sitting up in the chair, breathing comfortably, he remains on 2 L of oxygen and his pulse ox is 94%, and his oxygen demand has remained stable, and remained minimal at 2 L, he is afebrile, vital signs have been stable, no complaints of chest discomfort, no nausea or vomiting, no abdominal pain, he is tolerating oral intake, she was outside the window for Remdesivir, he status post monoclonal antibody infusion. he is currently Decadron 6 mg daily, and he is on oral anticoagulation in the form of Eliquis for history of atrial fibrillation. Today's labs have been reviewed, and his d-dimer is 3.09, and his inflammatory markers are significantly improved on today's labs. On 02/06/2021 he was seen in follow-up on medical surgical floor, he sitting up in chair, he has his back and hip brace in place, his been up ambulating with a walker tolerating activity well, patient was on 3 L of oxygen earlier satting 94%, his been afebrile, hemodynamically she was stable. Denies any worsening dyspnea, lung sounds reveal some minimal crackles, no rhonchi or wheezing, breathing very comfortably, no cough, no chest discomfort. Last chest x-ray from yesterday showed patchy mid and lower lung zone infiltrates. D-dimer is 4.12 on today's labs, slightly increased, sodium is 1:30, the rest of the electrolytes are within normal limits, BUN is 26 creatinine is 0.91 Objective - Vital Signs Vital signs: Vital Signs Temp 97.5 F L 02/06/21 10:30 Pulse 67 02/06/21 10:30 Resp 18 02/06/21 10:30 BP 117/78 02/06/21 10:30 Pulse Ox 94 L 02/06/21 10:30 Intake & Output 02/05/21 02/06/21 02/06/21 18:59 06:59 18:59 Intake Total 360 Output Total 800 Balance 360 -800 Weight 103.5 kg Intake: Oral 360 Output: Urine 800 Other: Voiding Method Toilet Urinal # Voids 3 2 - Exam GENERAL EXAM: Alert, very pleasant, 70-year-old white male, on room air with a pulse ox of 91% comfortable in no apparent distress. HEAD: Normocephalic/atraumatic. EYES: Normal reaction of pupils, equal size. Conjunctiva pink, sclera white. NOSE: Clear with pink turbinates. THROAT: No erythema or exudates. NECK: No masses, no JVD, no thyroid enlargement, no adenopathy. CHEST: No chest wall deformity. Symmetrical expansion. LUNGS: Equal air entry with bibasilar crackles CVS: Regular rate and rhythm, normal S1 and S2, no gallops, no murmurs, no rubs ABDOMEN: Soft, nontender. No hepatosplenomegaly, normal bowel sounds, no guarding or rigidity. EXTREMITIES: No clubbing, no edema, no cyanosis, 2+ pulses and upper and lower extremities. MUSCULOSKELETAL: Muscle strength and tone normal. SPINE: No scoliosis or deformity SKIN: No rashes CENTRAL NERVOUS SYSTEM: Alert and oriented -3. No focal deficits, tone is normal in all 4 extremities. PSYCHIATRIC: Alert and oriented -3. Appropriate affect. Intact judgment and insight. - Labs CBC & Chem 7: 02/03/21 16:16 02/06/21 05:35 Labs: Abnormal Lab Results - Last 24 Hours (Table) 02/06/21 02/06/21 Range/Units 05:35 05:35 D-Dimer 4.12 H (<0.60) mg/L FEU Sodium 130 L (137-145) mmol/L BUN 26 H (9-20) mg/dL Glucose 106 H (74-99) mg/dL Calcium 8.1 L (8.4-10.2) mg/dL C-Reactive Protein 3.1 H (<1.0) mg/dL Total Protein 5.7 L (6.3-8.2) g/dL Albumin 2.9 L (3.5-5.0) g/dL Assessment and Plan Plan: #1. Acute hypoxic respiratory failure secondary to COVID-19 pneumonia. Symptoms started 8-9 days ago. Tested positive on 01/29/2021. Received monoclonal antibodies on 01/31/2021. Not vaccinated. On 2 L nasal cannula. Outside the window for Remdesivir. Today's evaluation patient is on 02/06/2021 patient is on room air, maintaining O2 saturation above 90% #2.Right hip pain status post fall without loss of consciousness. Large chip off the greater trochanter of the right femur. Hip prosthesis in good position. #3. Atrial fibrillation, anticoagulated with Eliquis #4. Ischemic cardiomyopathy with ejection fraction 20%, status post AICD placement #5. History of aortic valve replacement #6. Osteoarthritis with previous joint replacements #7. Former smoker #8. Daily alcohol use Plan: Home oxygen assessment has been completed, and address patient is not requiring any oxygen Vital signs have been stable, however with exertion patient may need supplemental oxygen and this will be assessed with activity Patient is being discharged home today, he has remained stable from pulmonary p erspective No dyspnea, no cough, no fever, or chills Vital signs are stable Vital signs are stable Patient is stable for discharge home today from pulmonary perspective he can complete a total of 10 day course of Decadron, and he'll need outpatient follow- up in 2 weeks Continue oral anticoagulation I performed a history & physical examination of the patient and discussed their management with my nurse practitioner, Rajwinder Boyer. I reviewed the nurse practitioner's note and agree with the documented findings and plan of care. Lung sounds are positive for diffuse crackles throughout the lung morfin. The findings and the impression was discussed with the patient. I attest to the documentation by the nurse practitioner. Time with Patient: Less than 30
--- NOTE | 2021-02-06 13:54 | P.PN ---
Subjective Progress Note Date: 02/06/21 HISTORY OF PRESENT ILLNESS This is a pleasant 70-year-old male with past medical history of Atrial Fibrill ation on Eliquis, Osteoarthritis , chronic systolic CHF with cardiomyopathy and ejection fraction 20%, status post AICD. Status post cardiac valve replacement. Status post pacemaker Patient presents because of dyspnea of one week ago prior to Friday. With mainly dry and sometimes total phlegm. No chest pain. His symptoms started about 8 days ago. Patient is not vaccinated. He was diagnosed with Covid last Friday and plan have antibiotic infusion He has little diarrhea 3-4 times per day He hasn't been eating well for the last 3 days. And he sleeps a lot. On admission patient is hypoxemic needing 2 L of oxygen to keep saturating 93%, he is 91% on room air. CBC showing mild lymphopenia. INR is normal. Sodium 1:30, creatinine normal 0.9, ferritin elevated at 2157, LDH elevated at 1414 and C-reactive protein elevated 8.4. Liver enzymes are not elevated. proCalcitonin slightly elevated at 0.11 CT of the right hip without contrast showing large chip fracture of the greater trochanter of the right femur. Hip prosthesis in good position EKG showing atrial paced rhythm at 87 Chest x-ray: Bilateral parenchymal pneumonia 02/05: Patient is complaining of right leg pain secondary to a fall. He has little cough is nonproductive. His lung sounds are improved. He is noted to have a decreased dorsalis pedis on the right side has not had this worked up in the past. He is afebrile, heart rate 61, blood pressure 123/79, pulse ox 96% on 2 L nasal cannula. Repeat blood work reveals d-dimer 4.12. Sodium 130, BUN 26 and creatinine 0.9. C-reactive protein 3.1. Patient has been seen by orthopedics and an abductor brace has been ordered. Patient is also been seen by pulmonary medicine with recommendations to continue eliquis and supplemental oxygen, Decadron. Plan to monitor patient overnight and possible discharge tomorrow. REVIEW OF SYSTEMS Constitutional: No fever, no chills, no night sweats. No weight change. No weakness, fatigue or lethargy. No daytime sleepiness. EENT: No headache. No blurred vision or double vision, no loss of vision. No loss of Hearing, no ringing in the ears, no dizziness. No nasal drainage or congestion. No epistaxis. No sore throat. Lungs: No shortness of breath, cough, no sputum production. No wheezing. Cardiovascular: No chest pain, no lower extremity edema. No palpitations. No paroxysmal nocturnal dyspnea. No orthopnea. No lightheadedness or dizziness. No syncopal episodes. Abdominal: No abdominal pain. No nausea, vomiting. No diarrhea. No constipation. No bloody or tarry stools. No loss of appetite. Genitourinary: No dysuria, increased frequency, urgency. No urinary retention. Musculoskeletal: No myalgias. No muscle weakness, no gait dysfunction, no frequent falls. No back pain. No neck pain. Integumentary: No wounds, no lesions. No rash or pruritus. No unusual bruising. No change in hair or nails. Neurologic: No aphasia. No facial droop. No change in mentation. No head injury. No headache. No paralysis. No paresthesia. Psychiatric: No depression. No anxiety. No mood swings. Endocrine: No abnormal blood sugars. No weight change. No excessive sweating or thirst. No cold intolerance. PHYSICAL EXAMINATION Gen: This is a 70-year-old male, sitting in a recliner and appears to be in no acute distress. HEENT: Head is atraumatic, normocephalic. Pupils equal, round. Sclerae is a nicteric. NECK: Supple. No JVD. No lymphadenopathy. No thyromegaly. LUNGS: Clear to auscultation. No wheezes or rhonchi. No intercostal retractions. HEART: Regular rate and rhythm. No murmur. ABDOMEN: Soft. Bowel sounds are present. No masses. No tenderness. EXTREMITIES: No pedal edema. No calf tenderness. Dorsalis pedis decreased on the right, +2 on the left. NEUROLOGICAL: Patient is awake, alert and oriented x3. Cranial nerves 2 through 12 are grossly intact. ASSESSMENT AND PLAN Bilateral Covid pneumonia. Continue vitamin supplements, Decadron 6 mg IV push daily, eliquis. Pulmonary consult appreciated. Acute hypoxic respiratory failure. Continue oxygen therapy. Patient is cur rently on 2 L nasal cannula. Increased inflammatory markers secondary to Covid 19. Fall with periprosthetic fracture around internal prosthetic right hip joint. Consult with orthopedics appreciated. Abductor brace ordered. Chronic systolic CHF with ischemic cardiomyopathy and ejection fraction 20%, status post AICD. Continue Lasix 40 mg daily. History of aortic valve replacement, stable. Remote history of tobacco use. Daily alcohol use DVT prophylaxis: Eliquis DISCHARGE PLAN Home Impression and plan of care have been directed as dictated by the signing physician. Svetlana Rivers nurse practitioner acting as scribe for signing physician. Objective - Vital Signs Vital signs: Vital Signs Temp 97.5 F L 02/06/21 05:55 Pulse 66 02/06/21 05:55 Resp 17 02/06/21 05:55 BP 119/79 02/06/21 05:55 Pulse Ox 93 L 02/06/21 05:55 Intake & Output 02/05/21 02/06/21 02/06/21 18:59 06:59 18:59 Intake Total 360 Balance 360 Weight 103.5 kg Intake: Oral 360 Other: Voiding Method Toilet Urinal # Voids 3 - Labs CBC & Chem 7: 02/03/21 16:16 02/06/21 05:35 Labs: Abnormal Lab Results - Last 24 Hours (Table) 02/05/21 02/05/21 02/06/21 Range/Units 07:05 07:05 05:35 D-Dimer 3.06 H 4.12 H (<0.60) mg/L FEU Sodium (137-145) mmol/L BUN (9-20) mg/dL Glucose (74-99) mg/dL Calcium (8.4-10.2) mg/dL Lactate Dehydrogenase 417 H (120-246) U/L C-Reactive Protein 4.80 H (0.00-0.80) mg/dL Total Protein (6.3-8.2) g/dL Albumin (3.5-5.0) g/dL 02/06/21 Range/Units 05:35 D-Dimer (<0.60) mg/L FEU Sodium 130 L (137-145) mmol/L BUN 26 H (9-20) mg/dL Glucose 106 H (74-99) mg/dL Calcium 8.1 L (8.4-10.2) mg/dL Lactate Dehydrogenase (120-246) U/L C-Reactive Protein 3.1 H (0.00-0.80) mg/dL Total Protein 5.7 L (6.3-8.2) g/dL Albumin 2.9 L (3.5-5.0) g/dL
--- NOTE | 2021-02-06 14:09 | P.DS ---
Providers Date of admission: 02/03/21 17:52 Expected date of discharge: 02/06/21 Attending physician: Marjorie Marks Consults: 02/03/21 18:35 Consult Physician Routine Consulting Provider: Oziel Cruz Consult Reason/Comments: Acute hypoxic respiratory failure, COVID-19 Do you want consulting provider notified?: Yes Consult Physician Routine Consulting Provider: Lizzie Sher Consult Reason/Comments: Chip fracture of right greater trochanter Do you want consulting provider notified?: Yes Primary care physician: Marjorie Marks Hospital Course: HISTORY OF PRESENT ILLNESS This is a pleasant 70-year-old male with past medical history of Atrial Fibrillation on Eliquis, Osteoarthritis , chronic systolic CHF with cardiomyopathy and ejection fraction 20%, status post AICD. Status post cardiac valve replacement. Status post pacemaker Patient presents because of dyspnea of one week ago prior to Friday. With mainly dry and sometimes total phlegm. No chest pain. His symptoms started about 8 days ago. Patient is not vaccinated. He was diagnosed with Covid last Friday and plan have antibiotic infusion He has little diarrhea 3-4 times per day He hasn't been eating well for the last 3 days. And he sleeps a lot. On admission patient is hypoxemic needing 2 L of oxygen to keep saturating 93%, he is 91% on room air. CBC showing mild lymphopenia. INR is normal. Sodium 1:30, creatinine normal 0.9, ferritin elevated at 2157, LDH elevated at 1414 and C-reactive protein elevated 8.4. Liver enzymes are not elevated. proCalcitonin slightly elevated at 0.11 CT of the right hip without contrast showing large chip fracture of the greater trochanter of the right femur. Hip prosthesis in good position EKG showing atrial paced rhythm at 87 Chest x-ray: Bilateral parenchymal pneumonia 02/05: Patient is complaining of right leg pain secondary to a fall. He has little cough is nonproductive. His lung sounds are improved. He is noted to have a decreased dorsalis pedis on the right side has not had this worked up in the past. He is afebrile, heart rate 61, blood pressure 123/79, pulse ox 96% on 2 L nasal cannula. Repeat blood work reveals d-dimer 4.12. Sodium 130, BUN 26 and creatinine 0.9. C-reactive protein 3.1. Patient has been seen by orthopedics and an abductor brace has been ordered. Patient is also been seen by pulmonary medicine with recommendations to continue eliquis and supplemental oxygen, Decadron. Plan to monitor patient overnight and possible discharge tomorrow. 02/06: Patient has been afebrile, heart rate 67, blood pressure 117/70, pulse ox 94% on room air. Patient was ambulated and pulse ox dropped on 87%. imaging center manager will make arrangements for home oxygen therapy prior to discharge. Repeat blood work reveals d-dimer 4.12. Sodium 130. BUN 26 and creatinine 0.91. Calcium 8.1. Patient has been seen by pulmonary medicine cleared for discharge. Patient will be discharged home today in stable condition. Echocardiogram reveals EF of less than 20%, moderate aortic stenosis, mild mitral regurgitation, mild tricuspid regurgitation. Chest x-ray done yesterday revealed stable chest. DISCHARGE DIAGNOSES Bilateral Covid pneumonia. Acute hypoxic respiratory failure. Increased inflammatory markers secondary to Covid 19. Fall with periprosthetic fracture around internal prosthetic right hip joint. Chronic systolic CHF with ischemic cardiomyopathy and ejection fraction 20%, status post AICD. History of aortic valve replacement, stable. Remote history of tobacco use. Daily alcohol use Hypoxic respiratory failure secondary to Covid 19 requiring home oxygen therapy. DISCHARGE PLAN Home Impression and plan of care have been directed as dictated by the signing physician. Svetlana Rivers nurse practitioner acting as scribe for signing physician. Patient Condition at Discharge: Stable Plan - Discharge Summary Discharge Rx Participant: Yes New Discharge Prescriptions: New Famotidine [Pepcid] 20 mg PO BID #10 tab Albuterol Inhaler [Ventolin Hfa Inhaler] 2 puff INHALATION Q4H PRN #18 gm PRN Reason: Shortness Of Breath Cholecalciferol [Vitamin D3 (125 Mcg = 5000 Iu)] 125 mcg PO DAILY tablet Dexamethasone [Decadron] 6 mg PO DAILY #5 tablet Zinc Sulfate [Orazinc] 220 mg PO DAILY cap Ascorbic Acid [Vitamin C] 1,000 mg PO DAILY tab Continue Atorvastatin [Lipitor] 20 mg PO DAILY Amiodarone [Cordarone] 100 mg PO DAILY #90 tab Furosemide [Lasix] 40 mg PO DAILY Apixaban [Eliquis] 5 mg PO BID Sodium Chloride [[place]] 1 spray EA NOSTRIL TID PRN PRN Reason: Allergy Symptoms Fluticasone Propionate [Flonase Allergy Relief] 1 spray EA NOSTRIL TID PRN PRN Reason: Allergy Symptoms Changed Metoprolol Succinate (ER) [Toprol XL] 12.5 mg PO BID #0 Discontinued Sacubitril/Valsartan [Entresto 24 mg-26 mg Tablet] 1 tab PO BID Discharge Medication List Atorvastatin [Lipitor] 20 mg PO DAILY 12/09/19 [History] Amiodarone [Cordarone] 100 mg PO DAILY #90 tab 03/16/20 [Rx] Furosemide [Lasix] 40 mg PO DAILY 04/06/20 [History] Apixaban [Eliquis] 5 mg PO BID 01/31/21 [History] Fluticasone Propionate [Flonase Allergy Relief] 1 spray EA NOSTRIL TID PRN 02/03/21 [History] Sodium Chloride [[place]] 1 spray EA NOSTRIL TID PRN 02/03/21 [History] Albuterol Inhaler [Ventolin Hfa Inhaler] 2 puff INHALATION Q4H PRN #18 gm 02/06/21 [Rx] Ascorbic Acid [Vitamin C] 1,000 mg PO DAILY tab 02/06/21 [Rx] Cholecalciferol [Vitamin D3 (125 Mcg = 5000 Iu)] 125 mcg PO DAILY tablet 02/06/21 [Rx] Dexamethasone [Decadron] 6 mg PO DAILY #5 tablet 02/06/21 [Rx] Famotidine [Pepcid] 20 mg PO BID #10 tab 02/06/21 [Rx] Metoprolol Succinate (ER) [Toprol XL] 12.5 mg PO BID #0 02/06/21 [Rx] Zinc Sulfate [Orazinc] 220 mg PO DAILY cap 02/06/21 [Rx] Follow up Appointment(s)/Referral(s): Therese Barreto NPC [Nurse Practitioner] - 2 Weeks Colin Hidalgo MD [Medical Doctor] - 2 Weeks Davion Wu [NON-STAFF] - As Needed (hip abduction brace) Marjorie Marks MD [Primary Care Provider] - 1 Week Patient Instructions/Handouts: Coronavirus Disease 2019 (COVID-19), ORIF of Hip Fracture (DC) Activity/Diet/Wound Care/Special Instructions: Toe touch weightbearing right leg Avoid adduction of the leg/crossing your legs. Wear hip abduction brace. Discharge Disposition: HOME SELF-CARE
--- NOTE | 2021-02-06 14:17 | CDI ---
Documentation Clarification Form Date: 02/06/2021 02:06:12 PM From: Angela Sampson CCS, CCDS Admit Date: 02/03/2021 05:52:00 PM Patient Name: Papo Falcon Visit Number: [id number] Discharge Date: ATTENTION: The Clinical Documentation Specialists (CDI) and [facility] Coding Staff appreciate your assistance in clarifying documentation. Please respond to the clarification below the line at the bottom and electronically sign. The CDI & [facility] Coding staff will review the response and follow-up if needed. Please note: Queries are made part of the Legal Health Record. If you have any questions, please contact the author of this message via ITS. Dr. Marjorie Marks: Atrial Fibrillation is documented in the 02/03 ED Note, the 02/04 History & Physical, the 02/04 Orthopedic Consult and the 02/04 Pulmonary Consult and also in subsequent Progress Notes without further specificity. Additional clarification regarding the type of atrial fibrillation is requested. History/Risk Factors per the 02/04 H/P: Atrial Fibrillation on Eliquis, Osteoarthritis, Chronic Systolic CHF with Cardiomyopathy & EF <20% status post AICD, Heart Valve Replacement. Clinical Indicators: Presented to the ED on 02/03 with SOB, weakness status post fall. Tested positive for COVID 19 ON 01/29, received antibody infusion 3 days ago (01/31). Admit with COVID 19 Pneumonia, Acute Hypoxic Respiratory Failure, Dehydration, Hyponatremia. 02/03 VS: T 96.9, P 91 - 77, R 18 (sob, cough), BP 118/77, PO 91 RA - 86 RA - 93 2Lnc, BMI: 30.9 02/03 LAB: Lymphocytes 0.8, D Dimer 3.06, Na 130, CO2 20, BUN 40, Glucose 138, Calcium 8..3, Ferritin 2157.0. 02/03 EKG: R 87 Atrial-sensed ventricular paced rhythm. 02/05 ECHO (COVID positive for SOB): Mild LVH, Severe global hypokinesis of LV, Left Systolic function is severely impaired w/EF <20%, Left atrium mildly dilated, Moderate aortic stenosis, Mild MR/TR. Treatment: O2 2Lnc, IV Dilaudid, IV Zofran, INH Ventolin, IV Decadron, po Cordarone, Vit C, Vit D3, IV Decadron, IV Pepcid, po Lasix 40 mg daily, Orazinc, po Eliquis 5mg BID, po Lopressor 12.5 mg BID Home meds: Toprol XL, Lasix, Lipitor, Eliquis, Cordarone Cardiology was not consulted. Please clarify the type of atrial fibrillation, if known: [ ] Chronic [ ] Permanent [ ] Paroxysmal [ ] Persistent [ ] Other, please specify [ ] Unable to determine (Template Last Revised: July 2020) Paroxysmal atrial fibrillation MTDD
[2021-02-06] MEDS ORDERED: FAMOTIDINE 20 MG TAB PO SCH (21:00)
== END 2021-02-06 15:49 | disposition home or self-care (01) | DRG 177 ==
LOC: EC 14:51 → 4SSUR 17:52
PROVIDERS: ADMIT Internal Medicine; ATTEND Internal Medicine
DX: U07.1 COVID-19 (principal); S72.111A Displaced fracture of greater trochanter of right femur, initial encounter for closed fracture; J96.01 Acute respiratory failure with hypoxia; J12.82 Pneumonia due to coronavirus disease 2019; M97.01XA Periprosthetic fracture around internal prosthetic right hip joint, initial encounter; I50.22 Chronic systolic (congestive) heart failure; E87.1 Hypo-osmolality and hyponatremia; W10.9XXA Fall (on) (from) unspecified stairs and steps, initial encounter; D72.810 Lymphocytopenia; E78.5 Hyperlipidemia, unspecified; E86.0 Dehydration; I25.5 Ischemic cardiomyopathy; I48.0 Paroxysmal atrial fibrillation; M19.90 Unspecified osteoarthritis, unspecified site; Z79.01 Long term (current) use of anticoagulants; Z79.899 Other long term (current) drug therapy; Z87.891 Personal history of nicotine dependence; Z95.810 Presence of automatic (implantable) cardiac defibrillator; Z95.2 Presence of prosthetic heart valve; Z96.643 Presence of artificial hip joint, bilateral; R19.7 Diarrhea, unspecified; I08.3 Combined rheumatic disorders of mitral, aortic and tricuspid valves; Z90.89 Acquired absence of other organs; Z98.890 Other specified postprocedural states; Z98.42 Cataract extraction status, left eye
CPT/HCPCS: 36415; 71045; 73502; 80053; 82550; 82728; 83615; 83735; 84145; 85025; 85379; 85610; 85730; 86140; 93005; 93306; 94640; 99285

== ENCOUNTER → 2021-05-14 | Outpatient (CLI) | payer MEDICARE ==
[2021-05-14 16:01] LABS: African American GFR (CKD) 77.3 (60.0-200.0); Albumin 4.6 g/dL (3.8-4.9); Albumin/Globulin Ratio 1.87 (1.60-3.17); Anion Gap 14.9 mmol/L (10.00-18.00); BUN/Creat Ratio 17.23 Ratio (12.00-20.00); Blood Urea Nitrogen 19.3 mg/dL (9.0-27.0); Calcium 9.4 mg/dL (8.7-10.3); Carbon Dioxide 21.2 mmol/L (20.0-27.5); Globulin 2.5 g/dL (1.6-3.3); Non-African American GFR(CKD) 66.7 (60.0-200.0); Potassium 5.5 mmol/L (3.5-5.5); Total Bilirubin 0.5 mg/dL (0.30-1.20)
== END | disposition home or self-care (01) ==
LOC: LABWHC1 08:58
PROVIDERS: ATTEND Internal Medicine Interventional Cardiology
DX: I48.3 Typical atrial flutter (principal)
CPT/HCPCS: 36415; 80053; 84443

== ENCOUNTER → 2021-08-27 | Outpatient (CLI) | payer MEDICARE, OTHER ==
--- NOTE | 2021-08-28 07:12 | NM ---
EXAMINATION TYPE: NM bone scan whole body DATE OF EXAM: 08/27/2021 COMPARISON: NONE HISTORY: Pain Delayed whole-body scanning was performed following the injection of 23.3 mCi Tc 99m MDP. Images acq uired 4.5 hours post injection. FINDINGS: There is abnormal uptake involving the mandible on the right likely related to periodontal disease. A bnormal uptake involving the cervical spine and thoracic spine of mild to moderate intensity likely d egenerative. Curvature of the spine noted. Intense abnormal uptake at the level of L1 or L2 likely corresponds the patient's history of compress ion fracture. Photopenic defects involving bilateral hip likely postoperative. Abnormal uptake involving the feet, ankles and knees likely post arthritic. Abnormal uptake involving the shoulders likely post arthritic . Nonspecific uptake in the region of the medial aspect left clavicle. IMPRESSION: 1. Intense abnormal uptake upper lumbar spine likely in the basis of the patient's history of reporte d compression fracture. 2. Mild intensity uptake throughout the cervical, thoracic and lumbar spine likely degenerative corre late with x-ray. 3. Photopenic defects involving bilateral hips suggest previous surgery. 4. Abnormal uptake involving the left knee, bilateral feet suggestive of post arthritic changes.
== END | disposition home or self-care (01) ==
LOC: RADNMMAIN 10:19
PROVIDERS: ATTEND Physical Medicine & Rehabilitation
DX: S32.010A Wedge compression fracture of first lumbar vertebra, initial encounter for closed fracture (principal); R93.7 Abnormal findings on diagnostic imaging of other parts of musculoskeletal system
CPT/HCPCS: 78306; A9503

== ENCOUNTER → 2022-02-01 | Outpatient (CLI) | payer MEDICARE, OTHER ==
--- NOTE | 2022-02-01 15:04 | CT ---
EXAMINATION TYPE: CT chest wo con DATE OF EXAM: 02/01/2022 COMPARISON: CTA chest dated 12/09/2019 HISTORY: chronic cough CT DLP: 574.7 mGycm. Automated Exposure Control for Dose Reduction was Utilized. TECHNIQUE: CT scan of the thorax is performed without IV contrast. FINDINGS: The lungs are clear of consolidative, interstitial or masslike density. There is no pneumothorax. There is a tiny right pleural effusion. The heart is enlarged and there is a 2-lead cardiac pacemaker. There is mild aneurysmal dilatation of the ascending thoracic aorta which is 4.1 cm in diameter. Ther e is a prosthetic aortic valve. There are median sternotomy wires. Limited scanning the upper abdomen reveals no gross abnormality. No focal lytic or blastic osseous abnormalities are seen. IMPRESSION: 1. No acute cardiopulmonary disease. 2. Prosthetic aortic valve and mild aneurysmal dilatation of ascending thoracic aorta measuring 4.1 c m. 3. Tiny right pleural effusion.
== END | disposition home or self-care (01) ==
LOC: RADCTMAIN 14:30
PROVIDERS: ATTEND Internal Medicine
DX: I71.21 Aneurysm of the ascending aorta, without rupture (principal); J90 Pleural effusion, not elsewhere classified; R05.3 Chronic cough
CPT/HCPCS: 71250

== ENCOUNTER 2022-06-13 17:42 | Inpatient (IN) | payer MEDICARE, OTHER ==
--- NOTE | 2022-06-13 18:29 | ED ---
SOB HPI - General Chief Complaint: Shortness of Breath Stated Complaint: DIANA Time Seen by Provider: 06/13/22 18:13 Source: patient, RN notes reviewed Mode of arrival: ambulatory Limitations: no limitations - History of Present Illness Initial Comments: This is a 71-year-old male who presents to the emergency department for coughing and shortness of breath. Patient states that this has been present over the last 4-5 days. Coughing and shortness breath are worse when lying down and with exertion and he has had to sleep in his recliner. He went to urgent care earlier today, who told him to come to the emergency department for further evaluation of possible CHF. Patient does take Lasix daily, but forgot to take it yesterday. His said that he has started to have swelling in his legs. He has not noticed any specific weight gain. Denies any chest pain. Denies any fevers or sick contacts. Denies any fevers, chills, sore throat, chest pain, palpitations, abdominal pain, nausea, vomiting, diarrhea, back pain, or headaches. MD Complaint: shortness of breath, cough Onset/Timin -: days(s) - Related Data Home Medications Medication Instructions Recorded Confirmed Atorvastatin [Lipitor] 20 mg PO DAILY 12/09/19 06/13/22 Prevagen 1 cap PO DAILY 04/15/22 06/13/22 Previous Rx's Medication Instructions Recorded Amiodarone [Cordarone] 100 mg PO DAILY #90 tab 03/16/20 Apixaban [Eliquis] 5 mg PO BID #0 04/16/22 Fluticasone Nasal [place] [Flonase 2 spray EA NOSTRIL DAILY ml 04/16/22 Nasal [place]] Furosemide [Lasix] 40 mg PO BID #60 tab 04/16/22 Sacubitril/Valsartan [Entresto 49 1 tab PO BID #0 04/16/22 mg-51 mg Tablet] Allergies Allergy/AdvReac Type Severity Reaction Status Date / Time No Known Allergies Allergy Verified 06/13/22 20:34 Review of Systems ROS Statement: Those systems with pertinent positive or pertinent negative responses have been documented in the HPI. ROS Other: All systems not noted in ROS Statement are negative. Past Medical History Past Medical History: Atrial Fibrillation, Chest Pain / Angina, Osteoarthritis (OA) Additional Past Medical History / Comment(s): Pt states his EF is 20%, pt states he takes lasix so he doesn't build up fluid around his heart, pt denies hx of htn or high cholesterol. History of Any Multi-Drug Resistant Organisms: None Reported Past Surgical History: AICD, Cardiac Valve Replacement, EPS, Joint Replacement, Pacemaker, Tonsillectomy Additional Past Surgical History / Comment(s): 2007 aortic valve replacement, AICD/pacer approximately 2012 at [facility], bilateral total hip arthroplasty, L eye cataract removal, colonoscopy. 03/16/20-EPS Past Anesthesia/Blood Transfusion Reactions: No Reported Reaction Type of Cardiac Device: Permanent Pacemaker, AICD Device Placement Date:: 2012 at [place] Past Psychological History: No Psychological Hx Reported Smoking Status: Former smoker Past Alcohol Use History: Daily Past Drug Use History: None Reported - Past Family History Father Family Medical History: No Reported History Mother Family Medical History: No Reported History Additional Family Medical History / Comment(s): . General Exam Limitations: no limitations General appearance: alert, in no apparent distress Head exam: Present: atraumatic, normocephalic, normal inspection Respiratory exam: Present: rhonchi, decreased breath sounds, prolonged expiratory Cardiovascular Exam: Present: regular rate, normal rhythm, normal heart sounds. Absent: systolic murmur, diastolic murmur, rubs, gallop, clicks Extremities exam: Present: other (1-2+ pitting edema bilaterally) Neurological exam: Present: alert, oriented X3, CN II-XII intact Psychiatric exam: Present: normal affect, normal mood Skin exam: Present: warm, dry, intact, normal color. Absent: rash Course Vital Signs 06/13/22 17:50 Temperature 98.2 F Pulse Rate 91 Respiratory 20 Rate Blood Pressure 120/77 O2 Sat by Pulse 96 Oximetry Medical Decision Making - Medical Decision Making This is a 71-year-old male who presents to the emergency department for coughing and shortness of breath. Was pt. sent in by a medical professional or institution? @ -Urgent Care Did you speak to anyone other than the patient for history? @ -His Did you review nursing and triage notes? @ -Yes, and I agree, it is accurate with regards to the patient's symptoms. Were old charts reviewed? @ -No Differential Diagnosis? @ -Differential Dyspnea: Coronary syndrome, arrhythmia, tamponade, asthma, COPD, pulmonary embolism, pneumonia, pneumothorax, pulmonary effusion, anaphylaxis, diabetic ketoacidosis, flailed chest, pulmonary contusion, diaphragmatic rupture, anemia, neuromuscular, this is not meant to be an all-inclusive list. EKG interpreted by me (3pts min.)? @ -Electronic ventricular pacemaker. Ventricular rate 92 bpm, ID interval 174 ms, QRS duration 132 ms, QTC 455 ms. X-rays interpreted by me (1pt min.)? @ -Chest x-ray obtained. My interpretation identifies cardiomegaly and bilateral pleural effusions. What testing was considered but not performed? (CT, X-rays, U/S, labs)? Why? @ -None What meds were considered but not given? Why? @ -None Did you discuss the management of the patient with other professionals? @ -Yes, Dr. Marks who accepts the patient for admission. Did you reconcile home meds? @ -Yes Was smoking cessation discussed for >3mins.? @ -No Was critical care preformed (if so, how long)? @ -No Were there social determinants of health that impacted care today? How? (Homelessness, low income, unemployed, alcoholism, drug addiction, transportation, low edu. Level, literacy, decrease access to med. care, correction, rehab)? @ -No Was there de-escalation of care discussed even if they declined? (Discuss DNR or withdrawal of care, Hospice)? @ -No What co-morbidities impacted this encounter? (DM, HTN, Smoking, COPD, CAD, Cancer, CVA, Hep., AIDS, mental health diagnosis, sleep apnea, morbid obesity)? @ -A-fib, CHF Was patient admitted / discharged? @ -Admitted. Lab work obtained revealing an elevated BNP of 6950 and an elevated troponin of 0.042. Chest x-ray demonstrates cardiomegaly and bilateral pleural effusions. These findings are consistent with a CHF exacerbation. Patient is maintaining adequate oxygen saturation on room air between 96-98%. Patient is however notably uncomfortable. He is unable to lay flat he cannot control his coughing. Case discussed with Dr. Marks, who accepts the patient for admission and requests cardiology consult and starting the patient on IV Lasix 80 mg twice daily. Undiagnosed new problem with uncertain prognosis? @ -None Drug Therapy requiring intensive monitoring for toxicity (Heparin, Nitro, Insulin, Cardizem)? @ -None Were any procedures done? @ -None Diagnosis/symptom? @ -CHF Exacerbation Acute, or Chronic, or Acute on Chronic? @ -Acute on chronic Uncomplicated (without systemic symptoms) or Complicated (systemic symptoms)? @ -Complicated Side effects of treatment? @ -None Exacerbation, Progression, or Severe Exacerbation] @ -Severe exacerbation Poses a threat to life or bodily function? @ -Yes This case was discussed in detail with the attending ED physician, Dr. Mercer. Presentation, findings, and treatment plan discussed in detail as well. - Lab Data Result diagrams: 06/13/22 18:24 06/13/22 18:24 Lab Results 06/13/22 06/13/22 06/13/22 Range/Units 18:24 18:24 18:24 WBC 9.3 (3.8-10.6) k/uL RBC 4.05 L (4.30-5.90) m/uL Hgb 13.6 (13.0-17.5) gm/dL Hct 38.3 L (39.0-53.0) % MCV 94.5 (80.0-100.0) fL MCH 33.6 (25.0-35.0) pg MCHC 35.5 (31.0-37.0) g/dL RDW 13.2 (11.5-15.5) % Plt Count 143 L (150-450) k/uL MPV 7.5 Neutrophils % (Manual) 78 % Lymphocytes % (Manual) 19 % Monocytes % (Manual) 2 % Eosinophils % (Manual) 1 % Neutrophils # (Manual) 7.25 (1.3-7.7) k/uL Lymphocytes # (Manual) 1.77 (1.0-4.8) k/uL Monocytes # (Manual) 0.19 (0-1.0) k/uL Eosinophils # (Manual) 0.09 (0-0.7) k/uL Nucleated RBCs 0 (0-0) /100 WBC Manual Slide Review Performed Polychromasia Present PT 10.3 (9.0-12.0) sec INR 1.0 (<1.2) APTT 23.5 (22.0-30.0) sec Sodium 138 (137-145) mmol/L Potassium 4.0 (3.5-5.1) mmol/L Chloride 104 (98-107) mmol/L Carbon Dioxide 26 (22-30) mmol/L Anion Gap 8 mmol/L BUN 23 H (9-20) mg/dL Creatinine 1.23 (0.66-1.25) mg/dL Est GFR (CKD-EPI)AfAm 69 (>60 ml/min/1.73 sqM) Est GFR (CKD-EPI)NonAf 59 (>60 ml/min/1.73 sqM) Glucose 120 H (74-99) mg/dL Plasma Lactic Acid Myke (0.7-2.0) mmol/L Calcium 9.0 (8.4-10.2) mg/dL Total Bilirubin 0.8 (0.2-1.3) mg/dL AST 38 (17-59) U/L ALT 36 (4-49) U/L Alkaline Phosphatase 63 (38-126) U/L Troponin I (0.000-0.034) ng/mL NT-Pro-B Natriuret Pep pg/mL Total Protein 6.8 (6.3-8.2) g/dL Albumin 4.3 (3.5-5.0) g/dL Influenza Type A (PCR) (Not Detectd) Influenza Type B (PCR) (Not Detectd) RSV (PCR) (Not Detectd) SARS-CoV-2 (PCR) (Not Detectd) 06/13/22 06/13/22 06/13/22 Range/Units 18:24 18:24 18:24 WBC (3.8-10.6) k/uL RBC (4.30-5.90) m/uL Hgb (13.0-17.5) gm/dL Hct (39.0-53.0) % MCV (80.0-100.0) fL MCH (25.0-35.0) pg MCHC (31.0-37.0) g/dL RDW (11.5-15.5) % Plt Count (150-450) k/uL MPV Neutrophils % (Manual) % Lymphocytes % (Manual) % Monocytes % (Manual) % Eosinophils % (Manual) % Neutrophils # (Manual) (1.3-7.7) k/uL Lymphocytes # (Manual) (1.0-4.8) k/uL Monocytes # (Manual) (0-1.0) k/uL Eosinophils # (Manual) (0-0.7) k/uL Nucleated RBCs (0-0) /100 WBC Manual Slide Review Polychromasia PT (9.0-12.0) sec INR (<1.2) APTT (22.0-30.0) sec Sodium (137-145) mmol/L Potassium (3.5-5.1) mmol/L Chloride (98-107) mmol/L Carbon Dioxide (22-30) mmol/L Anion Gap mmol/L BUN (9-20) mg/dL Creatinine (0.66-1.25) mg/dL Est GFR (CKD-EPI)AfAm (>60 ml/min/1.73 sqM) Est GFR (CKD-EPI)NonAf (>60 ml/min/1.73 sqM) Glucose (74-99) mg/dL Plasma Lactic Acid Myke 2.0 (0.7-2.0) mmol/L Calcium (8.4-10.2) mg/dL Total Bilirubin (0.2-1.3) mg/dL AST (17-59) U/L ALT (4-49) U/L Alkaline Phosphatase (38-126) U/L Troponin I 0.042 H* (0.000-0.034) ng/mL NT-Pro-B Natriuret Pep 6950 pg/mL Total Protein (6.3-8.2) g/dL Albumin (3.5-5.0) g/dL Influenza Type A (PCR) (Not Detectd) Influenza Type B (PCR) (Not Detectd) RSV (PCR) (Not Detectd) SARS-CoV-2 (PCR) (Not Detectd) 06/13/22 Range/Units 18:24 WBC (3.8-10.6) k/uL RBC (4.30-5.90) m/uL Hgb (13.0-17.5) gm/dL Hct (39.0-53.0) % MCV (80.0-100.0) fL MCH (25.0-35.0) pg MCHC (31.0-37.0) g/dL RDW (11.5-15.5) % Plt Count (150-450) k/uL MPV Neutrophils % (Manual) % Lymphocytes % (Manual) % Monocytes % (Manual) % Eosinophils % (Manual) % Neutrophils # (Manual) (1.3-7.7) k/uL Lymphocytes # (Manual) (1.0-4.8) k/uL Monocytes # (Manual) (0-1.0) k/uL Eosinophils # (Manual) (0-0.7) k/uL Nucleated RBCs (0-0) /100 WBC Manual Slide Review Polychromasia PT (9.0-12.0) sec INR (<1.2) APTT (22.0-30.0) sec Sodium (137-145) mmol/L Potassium (3.5-5.1) mmol/L Chloride (98-107) mmol/L Carbon Dioxide (22-30) mmol/L Anion Gap mmol/L BUN (9-20) mg/dL Creatinine (0.66-1.25) mg/dL Est GFR (CKD-EPI)AfAm (>60 ml/min/1.73 sqM) Est GFR (CKD-EPI)NonAf (>60 ml/min/1.73 sqM) Glucose (74-99) mg/dL Plasma Lactic Acid Myke (0.7-2.0) mmol/L Calcium (8.4-10.2) mg/dL Total Bilirubin (0.2-1.3) mg/dL AST (17-59) U/L ALT (4-49) U/L Alkaline Phosphatase (38-126) U/L Troponin I (0.000-0.034) ng/mL NT-Pro-B Natriuret Pep pg/mL Total Protein (6.3-8.2) g/dL Albumin (3.5-5.0) g/dL Influenza Type A (PCR) Not Detected (Not Detectd) Influenza Type B (PCR) Not Detected (Not Detectd) RSV (PCR) Not Detected (Not Detectd) SARS-CoV-2 (PCR) Not Detected (Not Detectd) - Radiology Data Radiology results: report reviewed, image reviewed Disposition Clinical Impression: Acute exacerbation of CHF (congestive heart failure) Disposition: ADMITTED IP TO THIS HOSP
--- NOTE | 2022-06-13 18:39 | XR ---
EXAMINATION TYPE: XR chest 2V DATE OF EXAM: 06/13/2022 COMPARISON: Chest x-ray and CT April 15, 2022 HISTORY: History of pacemaker with shortness of breath TECHNIQUE: Frontal and lateral views of the chest are obtained. FINDINGS: Overlying sternal wires are present. There is cardiomegaly with multilead pacemaker/defibr illator. There are small bilateral pleural effusions on current study slightly larger from prior. T he osseous structures are intact. IMPRESSION: Cardiomegaly with small bilateral pleural effusions. Correlate for CHF exacerbation.
[2022-06-13 18:43] LABS: HCT 38.3 % (39.0-53.0); HGB 13.6 gm/dL (13.0-17.5); MCH 33.6 pg (25.0-35.0); MCHC 35.5 g/dL (31.0-37.0); MCV 94.5 fL (80.0-100.0); Mean Platelet Volume 7.5; Platelet Count 143 k/uL (150-450); RBC 4.05 m/uL (4.30-5.90); RDW 13.2 % (11.5-15.5); WBC 9.3 k/uL (3.8-10.6)
[2022-06-13 18:45] LABS: Partial Thromboplastin Time 23.5 sec (22.0-30.0); Prothrombin Time 10.3 sec (9.0-12.0)
[2022-06-13 18:57] LABS: Eosinophils # (M) 0.09 k/uL (0-0.7); Lymphocytes # (M) 1.77 k/uL (1.0-4.8); Monocytes # (M) 0.19 k/uL (0-1.0); Neutrophils # (M) 7.25 k/uL (1.3-7.7); Neutrophils % (M) 78 %; Nucleated Red Blood Cells 0 /100 WBC (0-0); Polychromasia Present; Total Cells Counted 100
[2022-06-13 18:58] LABS: Albumin 4.3 g/dL (3.5-5.0); Total Bilirubin 0.8 mg/dL (0.2-1.3); Total Protein 6.8 g/dL (6.3-8.2)
[2022-06-13] MEDS ORDERED: FUROSEMIDE 10 MG/ML 4 ML VIAL IV STA (19:20)
[2022-06-13] MEDS ORDERED: HYDROcodone/APAP 5-325MG 1 EACH TAB PO PRN (19:27)
[2022-06-13] MEDS ORDERED: ACETAMINOPHEN TAB 325 MG TAB PO PRN (19:27)
[2022-06-13] MEDS ORDERED: ONDANSETRON 4 MG/2 ML VIAL IVP PRN (19:27)
[2022-06-13] MEDS ORDERED: NALOXONE 0.4 MG/ML 1 ML VIAL IV PRN (19:27)
[2022-06-13] MEDS: FUROSEMIDE 10 MG/ML 10 ML VIAL IV SCH (19:39)
[2022-06-13] MEDS ORDERED: BENZONATATE 100 MG CAP PO PRN (23:39)
[2022-06-14] MEDS: APIXABAN 5 MG TAB PO SCH ×2 (09:37→20:25)
[2022-06-14] MEDS: ATORVASTATIN 20 MG TAB PO SCH (09:37)
[2022-06-14] MEDS: FUROSEMIDE 10 MG/ML 10 ML VIAL IV SCH ×2 (09:39→20:25)
[2022-06-14] MEDS: AMIODARONE 100 MG TAB PO SCH (09:41)
[2022-06-14] MEDS: SACUBITRIL/VALSARTAN 49 MG-51 MG TABLET PO SCH ×2 (09:42→20:26)
[2022-06-14] MEDS: FLUTICASONE 50MCG/SPRAY NASAL 16GM EA NOSTRIL SCH (10:46)
[2022-06-14] MEDS: ALBUTEROL NEBULIZED 2.5 MG/3 ML INHALATION SCH ×3 (11:41→21:04)
--- NOTE | 2022-06-14 12:59 | P.HPIM ---
History of Present Illness H&P Date: 06/14/22 HISTORY OF PRESENT ILLNESS This is a 71-year-old male with past medical history of HISTORY OF PRESENT ILLNESS This is a 71-year-old male with a history of hypertension, hyperlipidemia, nonischemic cardiomyopathy status post AICD, chronic systolic heart failure, paroxysmal atrial fibrillation on eliquis, chronic kidney disease stage , valvular heart disease status post aortic valve replacement, remote history of tobacco use. Patient complained of coughing and shortness of breath for the past 4-5 days gradually worsening especially when he is laying flat and with exertion as well as increased lower extremity edema. He has had to sleep in his recliner. He went to urgent care and he was directed to the emergency center for evaluation of heart failure. Patient forgot to take Lasix yesterday. No fever or chills. No noted weight gain. No chest pain. His initial vital signs were stable and he was found to be afebrile. EKG was ventricularly paced rhythm. Chest x-ray reveals cardiomegaly with small bilateral pleural effusions. Correlate for CHF exacerbation. Recent echocardiogram performed on 04/15/2022 revealed severely impaired left ventricular systolic function EF 20-25% with global hypokinesis, wire was noted in the right ventricle possible PFO, bioprosthetic aortic valve not well visualized with mild aortic regurgitation with a mean gradient of 17 mmHg. Mild to moderate mitral regurgitation and mild tricuspid regurgitation. WBC 9.3, hemoglobin 13.6, platelet count 143. INR 1. Electrolytes were normal. BUN 23 creatinine 1.23. Potassium 4. Troponin 0.042. ProBNP 6950. Liver function tests normal. Influenza A, influenza B, RSV, Covid 19 not detected. Patient was started on IV Lasix 80 mg twice daily, cardiology consult requested and patient was resumed on his home medications. REVIEW OF SYSTEMS Constitutional: No fever, no chills, no night sweats. No weight change. No weakness, fatigue or lethargy. No daytime sleepiness. EENT: No headache. No blurred vision or double vision, no loss of vision. No loss of Hearing, no ringing in the ears, no dizziness. No nasal drainage or congestion. No epistaxis. No sore throat. Lungs: Reports shortness of breath, reports cough, no sputum production. No wheezing. Reports dyspnea on exertion Cardiovascular: No chest pain, no lower extremity edema. No palpitations. Reports paroxysmal nocturnal dyspnea. Reports orthopnea. No lightheadedness or dizziness. No syncopal episodes. Abdominal: No abdominal pain. No nausea, vomiting. No diarrhea. No constip ation. No bloody or tarry stools. No loss of appetite. Genitourinary: No dysuria, increased frequency, urgency. No urinary retention. Musculoskeletal: No myalgias. No muscle weakness, no gait dysfunction, no frequent falls. No back pain. No neck pain. Integumentary: No wounds, no lesions. No rash or pruritus. No unusual bruising. No change in hair or nails. Neurologic: No aphasia. No facial droop. No change in mentation. No head injury. No headache. No paralysis. No paresthesia. Psychiatric: No depression. No anxiety. No mood swings. Endocrine: No abnormal blood sugars. No weight change. No excessive sweating or thirst. No cold intolerance. MEDICAL HISTORY Hypertension Hyperlipidemia Nonischemic cardiac myopathy status post AICD Chronic systolic heart failure Paroxysmal atrial fibrillation on eliquis Chronic kidney disease stage Valvular heart disease status post aortic valve replacement. SURGICAL HISTORY Left hip replacement Right hip replacement Aortic valve replacement AICD 03/2020. SOCIAL HISTORY Patient was a smoker and quit more than 20 years ago. He smoked only briefly. No alcohol abuse. No marijuana use. FAMILY HISTORY Father at age 74 from COPD and had history of skin cancer. Mother at age 82 from heart failure and COPD. Patient has 1 brother alive with no major medical problems. Patient has one sister with no major medical problems. Patient has 2 sons and one daughter with no major medical problems. PHYSICAL EXAMINATION Gen: This is a 71-year-old obese male. He is resting in ER stretcher and appears to be comfortable and in no acute distress. HEENT: Head is atraumatic, normocephalic. Pupils equal, round. Sclerae is anicteric. NECK: Supple. No JVD. No lymphadenopathy. No thyromegaly. LUNGS: Fine crackles bilateral bases. No intercostal retractions. HEART: Regular rate and rhythm. 2/6 systolic murmur at the left sternal border. ABDOMEN: Soft. Bowel sounds are present. No masses. No tenderness. EXTREMITIES: No pedal edema. No calf tenderness. NEUROLOGICAL: Patient is awake, alert and oriented x3. Cranial nerves 2 through 12 are grossly intact. ASSESSMENT AND PLAN 1. Acute on chronic systolic heart failure. Cardiology consult appreciated. Patient is continued on Lasix 80 mg IV every 12 hours, monitor I&O, daily weights, electrolytes and renal function. Continue patient on Entresto one twice daily. 2. Nonischemic cardio myopathy status post AICD. Stable. 3. Hypertension. Continue Entresto twice daily. 4. Hyperlipidemia. Continue atorvastatin 20 mg daily. 5. Paroxysmal atrial fibrillation, currently in a sinus rhythm. Continue patient on amiodarone 100 mg daily, eliquis 5 mg twice daily. 6. Chronic kidney disease II. Avoid nephrotoxic agents, monitor renal function closely. 7. Valvular heart disease status post aortic valve replacement, stable. 8. GI prophylaxis. Protonix 40 mg oral daily. 9. DVT prophylaxis. Eliquis 5 mg twice daily. Patient will be admitted to the hospital for a minimum of 2 night stay. DISCHARGE PLAN Return home. Impression and plan of care have been directed as dictated by the signing physician. Svetlana Rivers nurse practitioner acting as scribe for signing physician. Past Medical History Past Medical History: Atrial Fibrillation, Chest Pain / Angina, Osteoarthritis (OA) Additional Past Medical History / Comment(s): Pt states his EF is 20%, pt states he takes lasix so he doesn't build up fluid around his heart, pt denies hx of htn or high cholesterol. History of Any Multi-Drug Resistant Organisms: None Reported Past Surgical History: AICD, Cardiac Valve Replacement, EPS, Joint Replacement, Pacemaker, Tonsillectomy Additional Past Surgical History / Comment(s): 2007 aortic valve replacement, AICD/pacer approximately 2012 at [facility], bilateral total hip arthroplasty, L eye cataract removal, colonoscopy. 03/16/20-EPS Past Anesthesia/Blood Transfusion Reactions: No Reported Reaction Type of Cardiac Device: Permanent Pacemaker, AICD Device Placement Date:: 2012 at [place] Past Psychological History: No Psychological Hx Reported Smoking Status: Former smoker Past Alcohol Use History: Daily Past Drug Use History: None Reported - Past Family History Father Family Medical History: No Reported History Mother Family Medical History: No Reported History Additional Family Medical History / Comment(s): . Medications and Allergies Home Medications Medication Instructions Recorded Confirmed Type Atorvastatin [Lipitor] 20 mg PO DAILY 12/09/19 06/13/22 History Amiodarone [Cordarone] 100 mg PO DAILY #90 tab 03/16/20 06/13/22 Rx Prevagen 1 cap PO DAILY 04/15/22 06/13/22 History Apixaban [Eliquis] 5 mg PO BID #0 04/16/22 06/13/22 Rx Fluticasone Nasal [place] [Flonase 2 spray EA NOSTRIL DAILY ml 04/16/22 06/13/22 Rx Nasal [place]] Furosemide [Lasix] 40 mg PO BID #60 tab 04/16/22 06/13/22 Rx Sacubitril/Valsartan [Entresto 49 1 tab PO BID #0 04/16/22 06/13/22 Rx mg-51 mg Tablet] Allergies Allergy/AdvReac Type Severity Reaction Status Date / Time No Known Allergies Allergy Verified 06/13/22 20:34 Physical Exam Vitals: Vital Signs Temp Pulse Resp BP Pulse Ox 06/14/22 09:35 82 20 117/73 98 06/14/22 05:17 98.9 F 78 16 118/88 97 06/14/22 01:43 87 18 91/61 96 06/13/22 17:50 98.2 F 91 20 120/77 96 Intake and Output 06/13/22 06/14/22 06/14/22 22:59 06:59 14:59 Other: Weight 105.233 kg Results CBC & Chem 7: 06/13/22 18:24 06/13/22 18:24 Labs: Abnormal Lab Results - Last 24 Hours (Table) 06/13/22 06/13/22 06/13/22 Range/Units 18:24 18:24 18:24 RBC 4.05 L (4.30-5.90) m/uL Hct 38.3 L (39.0-53.0) % Plt Count 143 L (150-450) k/uL BUN 23 H (9-20) mg/dL Glucose 120 H (74-99) mg/dL Troponin I 0.042 H* (0.000-0.034) ng/mL
--- NOTE | 2022-06-14 19:36 | CONS ---
CONSULTATION CHIEF COMPLAINT: Shortness of breath. HISTORY OF PRESENT ILLNESS: Mr. Falcon is a 71-year-old gentleman with history of nonischemic cardiomyopathy, status post AICD; chronic systolic heart failure; paroxysmal atrial fibrillation, on long-term anticoagulation; valvular heart disease, status post aortic valve replacement, who presented to hospital with progressively worsening shortness of breath. This started around Friday and has gotten worse. He is coughing and bringing up phlegm. His admission chest x-ray shows pleural effusion. BNP is elevated. He had been treated with intravenous diuretics with improvement in his symptoms. At the time of my evaluation, he is feeling better but still is coughing and wheezing. I am going to give him a nebulizer, and I will continue the IV diuretics, and hopefully with this, his symptoms would improve. The patient might also benefit from antibiotics. I am going to let the primary decide on this. The patient's clinical presentation is consistent with acute exacerbation of chronic systolic heart failure. PAST MEDICAL HISTORY: Significant for nonischemic cardiomyopathy, AICD, chronic systolic heart failure, paroxysmal atrial fibrillation, aortic valve replacement. MEDICATIONS AT HOME: Include: 1. Entresto. 2. Lasix 40 b.i.d. 3. Lipitor 20 mg daily. 4. Eliquis 5 b.i.d. 5. Amiodarone 100 mg daily. ALLERGIES: There are no known drug allergies. FAMILY HISTORY: Negative for premature coronary artery disease. SOCIAL HISTORY: Negative for smoking, EtOH abuse, or drug abuse. REVIEW OF SYSTEMS: 14 out of 14 review of systems has been performed. Pertinents are as documented. PHYSICAL EXAMINATION: GENERAL: Comfortable at rest. VITAL SIGNS: Afebrile. Heart rate is 78 beats per minute, blood pressure is 118/80, respiratory rate is 16, O2 saturation is 97% on room air. NECK: There is no jugular venous distention. Carotid upstroke is normal. There is no bruit. CHEST: Reveals diffuse bilateral wheezing. HEART: Reveals first and second heart sounds. No gallop. No murmur. ABDOMEN: Soft and nontender. EXTREMITIES: Did not reveal any edema. Peripheral pulses are felt. LABORATORY DATA: Show a hemoglobin of 13.6, platelet count is 143, potassium is 4, creatinine is 1.2. BNP is elevated at 6950. Troponin is abnormal at 0.04. EKG showed sinus rhythm with paced rhythm and right bundle-branch block. The patient had an echocardiogram at last visit, that revealed severe LV systolic dysfunction with an ejection fraction of 20% to 25% with normally-functioning bioprosthetic valve in aortic position with mild aortic regurgitation with a mean gradient of 17 mm. ASSESSMENT: 1. Acute exacerbation of chronic systolic heart failure. 2. Paroxysmal atrial fibrillation. 3. Nonischemic cardiomyopathy, status post automatic implantable cardioverter- defibrillator. PLAN: The patient will be treated with intravenous diuretics, nebulizer, IV Lasix. Resume the Entresto, Cordarone, and Eliquis along with Lipitor that he is on. I will start him on nebulizers and see how his symptoms evolve and adjust the medications as needed. [id number] / IJN: [id number] /
[2022-06-15] MEDS: ALBUTEROL NEBULIZED 2.5 MG/3 ML INHALATION SCH ×7 (03:53→23:36)
[2022-06-15] MEDS: PANTOPRAZOLE 40 MG TABLET PO SCH (05:49)
[2022-06-15] MEDS: FUROSEMIDE 10 MG/ML 10 ML VIAL IV SCH (05:49)
[2022-06-15 08:54] LABS: Calcium 9.1 mg/dL (8.4-10.2); Potassium 3.8 mmol/L (3.5-5.1)
[2022-06-15] MEDS: AMIODARONE 100 MG TAB PO SCH (09:04)
[2022-06-15] MEDS: FLUTICASONE 50MCG/SPRAY NASAL 16GM EA NOSTRIL SCH (09:04)
[2022-06-15] MEDS: SACUBITRIL/VALSARTAN 49 MG-51 MG TABLET PO SCH ×2 (09:04→20:01)
[2022-06-15] MEDS: APIXABAN 5 MG TAB PO SCH ×2 (09:04→20:01)
[2022-06-15] MEDS: ATORVASTATIN 20 MG TAB PO SCH (09:04)
--- NOTE | 2022-06-15 10:55 | P.PN ---
Subjective Progress Note Date: 06/15/22 HISTORY OF PRESENT ILLNESS: This is a 71-year-old male who follows in the office with Dr. Don. Patient has a history of nonischemic cardiomyopathy, paroxysmal atrial fibrillation, congestive heart failure, AICD implantation, chronic kidney disease, valvular heart disease with previous aortic valve replacement, hypertension, and hyperlipidemia. Patient examined this morning. Patient is sitting up in the chair. Patient currently denies chest pain or pressure. He currently denies shortness of breath. He states he feels very close to his baseline. He remains on Lasix 80 mg every 12 hours. Telemetry reveals paced rhythm. Patient's creatinine remains stable today at 1.23. Urine output over the last 24 hours is 2400 mL. His weight is down 5 kg. PHYSICAL EXAM: VITAL SIGNS: Reviewed. GENERAL: Well-developed in no acute distress. NECK: Supple. No JVD or thyromegaly LUNGS: Respirations even and unlabored. Lungs with wheezing and rhonchi noted. HEART: Regular rate and rhythm. S1 and S2 heard. Systolic murmur noted. EXTREMITIES: Normal range of motion. No clubbing or cyanosis. Peripheral pulses intact. No lower extremity edema ASSESSMENT: Shortness of breath Acute on chronic heart failure with reduced ejection fraction, EF 20% History of nonischemic myopathy Paroxysmal atrial fibrillation History of AICD implantation Chronic kidney disease Valvular heart disease with previous aortic valve replacement Hypertension Hyperlipidemia PLAN: Continue current cardiac medications Discontinue IV lasix. Resume oral lasix. Daily weights, accurate I&O, and monitoring of kidney function Patient hoping to be discharged home today. Possible discharge this afternoon if patient remains stable. Nurse practitioner note has been reviewed by physician. Signing provider agrees with the documented findings, assessment, and plan of care. Objective - Vital Signs Vital signs: Vital Signs Temp 98.4 F 06/15/22 04:00 Pulse 90 06/15/22 09:11 Resp 16 06/15/22 08:00 BP 100/64 06/15/22 08:00 Pulse Ox 100 06/15/22 08:00 FiO2 Intake & Output 06/14/22 06/15/22 06/15/22 18:59 06:59 18:59 Intake Total 118 240 Output Total 2400 Balance 118 -2160 Weight 105.233 kg 100.7 kg Intake: Oral 118 240 Output: Urine 2400 Other: Voiding Method Toilet Toilet Toilet Urinal Urinal Urinal - Labs CBC & Chem 7: 06/13/22 18:24 06/15/22 08:16 Labs: Abnormal Lab Results - Last 24 Hours (Table) 06/15/22 Range/Units 08:16 Carbon Dioxide 31 H (22-30) mmol/L BUN 25 H (9-20) mg/dL Glucose 175 H (74-99) mg/dL
--- NOTE | 2022-06-15 12:44 | P.PN ---
Progress Note - Text Progress Note Date: 06/15/22 Subjective: Patient seen and evaluated bedside. Patient states shortness of breath is improved, and edema is present as except for shortness of breath Review of systems: Shortness of breath present , denies cough, chest pain, does complain of approximately PHYSICAL EXAM: VITAL SIGNS: Reviewed. GENERAL: Well-developed in no acute distress. NECK: Supple. No JVD or thyromegaly LUNGS: Decreased breath sounds bilaterally, no audible bilaterally at lung bases. HEART: Regular rate and rhythm. S1 and S2 heard. Systolic murmur noted. lower extremity edema present EXTREMITIES: Normal range of motion. No clubbing or cyanosis. Peripheral pulses intact. No lower extremity edema ASSESSMENT: * Acute on chronic heart failure with reduced ejection fraction, EF 20% History of nonischemic myopathy * Paroxysmal atrial fibrillation * History of AICD implantation * Chronic kidney disease * Valvular heart disease with previous aortic valve replacement * Hypertension * Hyperlipidemia PLAN: * Patient receiving IV Lasix and transitioned to oral Lasix, continue to monitor intake and output * Continue patient on amiodarone and eliquis * Continue guidelines recommend medical therapy * Expected discharge within the next 24 hours
[2022-06-15] MEDS: FUROSEMIDE 20 MG TAB PO SCH (16:26)
[2022-06-16] MEDS: ALBUTEROL NEBULIZED 2.5 MG/3 ML INHALATION SCH ×6 (03:29→23:42)
[2022-06-16] MEDS: PANTOPRAZOLE 40 MG TABLET PO SCH (06:07)
[2022-06-16] MEDS ORDERED: METOPROLOL TARTRATE 25 MG TAB PO STA (07:48)
[2022-06-16] MEDS: SACUBITRIL/VALSARTAN 49 MG-51 MG TABLET PO SCH (08:59)
[2022-06-16] MEDS: FLUTICASONE 50MCG/SPRAY NASAL 16GM EA NOSTRIL SCH (09:22)
[2022-06-16] MEDS: AMIODARONE 100 MG TAB PO SCH (09:22)
[2022-06-16] MEDS: FUROSEMIDE 20 MG TAB PO SCH ×2 (09:22→18:32)
[2022-06-16] MEDS: APIXABAN 5 MG TAB PO SCH ×2 (09:22→20:32)
[2022-06-16] MEDS: ATORVASTATIN 20 MG TAB PO SCH (09:22)
[2022-06-16 10:48] LABS: African American GFR (CKD) >90 (>60 ml/min/1.73 sqM); Anion Gap 4 mmol/L; Blood Urea Nitrogen 16 mg/dL (9-20); Calcium 9.5 mg/dL (8.4-10.2); Carbon Dioxide 33 mmol/L (22-30); Chloride 94 mmol/L (98-107); Glucose 133 mg/dL (74-99); Non-African American GFR(CKD) >90 (>60 ml/min/1.73 sqM); Potassium 4.7 mmol/L (3.5-5.1); Sodium 131 mmol/L (137-145)
--- NOTE | 2022-06-16 11:19 | P.PN ---
Subjective Progress Note Date: 06/16/22 HISTORY OF PRESENT ILLNESS: This is a 71-year-old male who follows in the office with Dr. Don. Patient has a history of nonischemic cardiomyopathy, paroxysmal atrial fibrillation, congestive heart failure, AICD implantation, chronic kidney disease, valvular heart disease with previous aortic valve replacement, hypertension, and hyperlipidemia. Patient examined this morning. Patient is sitting up in the chair. Patient currently denies chest pain or pressure. He currently denies shortness of breath. He states he feels very close to his baseline. He remains on Lasix 80 mg every 12 hours. Telemetry reveals paced rhythm. Patient's creatinine remains stable today at 1.23. Urine output over the last 24 hours is 2400 mL. His weight is down 5 kg. 06/16/2022 Patient examined this morning sitting in the chair. Patient denies chest pain or pressure. He states his shortness of breath is a little bit worse than yesterday. He states that he was feeling so unwell yesterday afternoon that he declined the remainder of his breathing treatments yesterday. Patient is hyp otensive this morning with a blood pressure of 83/60. Patient is also tachycardic with a heart rate ranging between 101 120. Patient was transitioned to oral Lasix yesterday. BUN today 16. Creatinine 0.76. PHYSICAL EXAM: VITAL SIGNS: Reviewed. GENERAL: Well-developed in no acute distress. NECK: Supple. No JVD or thyromegaly LUNGS: Respirations even and unlabored. Lungs with wheezing and rhonchi noted. HEART: Mildly tachycardic. Regular rate and rhythm. S1 and S2 heard. Systolic murmur noted. EXTREMITIES: Normal range of motion. No clubbing or cyanosis. Peripheral pulses intact. No lower extremity edema ASSESSMENT: Shortness of breath Acute on chronic heart failure with reduced ejection fraction, EF 20% History of nonischemic myopathy Paroxysmal atrial fibrillation History of AICD implantation Chronic kidney disease Valvular heart disease with previous aortic valve replacement Hypertension Hyperlipidemia PLAN: Continue current cardiac medications Continue current dose of oral Lasix Daily weights, accurate I&O, and monitoring of kidney function Metoprolol tartrate 25 mg twice a day secondary to tachycardia Decrease patient's dose of Entresto secondary to hypotension. Hold for SBP less than 90. Recommend monitoring patient for an additional 24 hours Further recommendations pending patient's course Nurse practitioner note has been reviewed by physician. Signing provider agrees with the documented findings, assessment, and plan of care. Objective - Vital Signs Vital signs: Vital Signs Temp 98.1 F 06/16/22 08:50 Pulse 78 06/16/22 09:20 Resp 18 06/16/22 08:50 BP 83/60 06/16/22 08:50 Pulse Ox 100 06/16/22 08:50 FiO2 Intake & Output 06/15/22 06/16/22 06/16/22 18:59 06:59 18:59 Intake Total 236 358 Output Total 1825 Balance 236 -1825 358 Weight 101 kg Intake: Oral 236 358 Output: Urine 1825 Other: Voiding Method Toilet Toilet Urinal Urinal - Labs CBC & Chem 7: 06/13/22 18:24 06/16/22 08:49 Labs: Abnormal Lab Results - Last 24 Hours (Table) 06/16/22 Range/Units 08:49 Sodium 131 L (137-145) mmol/L Chloride 94 L (98-107) mmol/L Carbon Dioxide 33 H (22-30) mmol/L Glucose 133 H (74-99) mg/dL
[2022-06-16] MEDS ORDERED: SODIUM CHLORIDE 0.9% 500 ML 500 ML IV ONE (12:43)
--- NOTE | 2022-06-16 12:51 | P.PN ---
Progress Note - Text Progress Note Date: 06/16/22 SUBJECTIVE : Patient seen and evaluated bedside. Patient had episode of hypotension and dizziness earlier today hence discharge cancelled Patient was transferred to inpatient secondary to tachycardia and hypotension REVIEW OF SYSTEMS: NEGATIVE EXCEPT FOR dizziness, shortness of breath, lower ext edema CONSTITUTIONAL: No fever, no malaise, no fatigue. HEENT: No recent visual problems or hearing problems. Denied any sore throat. CARDIOVASCULAR: No chest pain, orthopnea, PND, no palpitations, no syncope. PULMONARY: No shortness of breath, no cough, no hemoptysis. GASTROINTESTINAL: No diarrhea, no nausea, no vomiting, no abdominal pain. NEUROLOGICAL: No headaches, no weakness, no numbness. HEMATOLOGICAL: Denies any bleeding or petechiae. GENITOURINARY: Denies any burning micturition, frequency, or urgency. MUSCULOSKELETAL/RHEUMATOLOGICAL: Denies any joint pain, swelling, or any muscle pain. ENDOCRINE: Denies any polyuria or polydipsia. PHYSICAL EXAMINATION: GENERAL: The patient is alert and oriented x3, not in any acute distress. Well developed, well nourished. HEENT: Pupils are round and equally reacting to light. EOMI. No scleral icterus. No conjunctival pallor. Normocephalic, atraumatic. No pharyngeal erythema. No thyromegaly. CARDIOVASCULAR: Irregular heart rate, tachycardia noted, lower extremity edema. PULMONARY: Chest is clear to auscultation, no wheezing or crackles. ABDOMEN: Soft, nontender, nondistended, normoactive bowel sounds. No palpable organomegaly. MUSCULOSKELETAL: No joint swelling or deformity. EXTREMITIES: No cyanosis, clubbing, or pedal edema. NEUROLOGICAL: Gross neurological examination did not reveal any focal deficits. SKIN: No rashes. ASSESSMENT: * Acute on chronic heart failure with reduced ejection fraction, EF 20% History of nonischemic myopathy * Paroxysmal atrial fibrillation * History of AICD implantation * Chronic kidney disease * Valvular heart disease with previous aortic valve replacement * Hypertension * Hyperlipidemia PLAN: * Patient receiving IV Lasix and transitioned to oral Lasix on 06/15 however noted to be hypotensive 06/16 given 250 mL fluid bolus * Dose of entresto decreased, will need rate control with metoprolol * Continue patient on amiodarone and eliquis * Continue guidelines recommend medical therapy * Expected discharge within the next 24 hours, barrier to discharge as tachy cardia or hypotension
[2022-06-16] MEDS: SACUBITRIL/VALSARTAN 24 MG-26 MG TABLET PO SCH (20:32)
[2022-06-16] MEDS: METOPROLOL TARTRATE 25 MG TAB PO SCH (20:32)
[2022-06-17] MEDS: ALBUTEROL NEBULIZED 2.5 MG/3 ML INHALATION SCH ×4 (03:14→15:06)
[2022-06-17 06:12] LABS: Calcium 8.6 mg/dL (8.4-10.2)
[2022-06-17] MEDS: PANTOPRAZOLE 40 MG TABLET PO SCH (06:14)
[2022-06-17] MEDS: FUROSEMIDE 20 MG TAB PO SCH (08:59)
[2022-06-17] MEDS: APIXABAN 5 MG TAB PO SCH (08:59)
[2022-06-17] MEDS: FLUTICASONE 50MCG/SPRAY NASAL 16GM EA NOSTRIL SCH (08:59)
[2022-06-17] MEDS: AMIODARONE 100 MG TAB PO SCH (08:59)
[2022-06-17] MEDS: METOPROLOL TARTRATE 25 MG TAB PO SCH (08:59)
[2022-06-17] MEDS: ATORVASTATIN 20 MG TAB PO SCH (08:59)
[2022-06-17] MEDS: SACUBITRIL/VALSARTAN 24 MG-26 MG TABLET PO SCH (08:59)
[2022-06-17] MEDS ORDERED: guaiFENesin 600 MG TABLET.ER PO SCH (09:45)
[2022-06-17 10:48] VITALS: TEMP 97.5
--- NOTE | 2022-06-17 13:22 | P.PN ---
Subjective Progress Note Date: 06/17/22 HISTORY OF PRESENT ILLNESS: This is a 71-year-old male who follows in the office with Dr. Don. Patient has a history of nonischemic cardiomyopathy, paroxysmal atrial fibrillation, congestive heart failure, AICD implantation, chronic kidney disease, valvular heart disease with previous aortic valve replacement, hypertension, and hyperlipidemia. Patient examined this morning. Patient is sitting up in the chair. Patient currently denies chest pain or pressure. He currently denies shortness of breath. He states he feels very close to his baseline. He remains on Lasix 80 mg every 12 hours. Telemetry reveals paced rhythm. Patient's creatinine remains stable today at 1.23. Urine output over the last 24 hours is 2400 mL. His weight is down 5 kg. 06/16/2022 Patient examined this morning sitting in the chair. Patient denies chest pain or pressure. He states his shortness of breath is a little bit worse than yesterday. He states that he was feeling so unwell yesterday afternoon that he declined the remainder of his breathing treatments yesterday. Patient is hyp otensive this morning with a blood pressure of 83/60. Patient is also tachycardic with a heart rate ranging between 101 120. Patient was transitioned to oral Lasix yesterday. BUN today 16. Creatinine 0.76. 06/17 Yesterday, medication changes were made as patient was hypotensive. Today blood pressure is improved at 98/68. He denies having any lightheadedness or dizziness. He denies having any chest pain and shortness of breath is improved. Patient is very anxious to go home today. We will have her recheck on blood pressure and make minor adjustments to his medications. PHYSICAL EXAM: VITAL SIGNS: Reviewed. GENERAL: Well-developed in no acute distress. NECK: Supple. No JVD or thyromegaly LUNGS: Respirations even and unlabored. Lungs with wheezing and rhonchi noted. HEART: Mildly tachycardic. Regular rate and rhythm. S1 and S2 heard. Systolic murmur noted. EXTREMITIES: Normal range of motion. No clubbing or cyanosis. Peripheral pulses intact. No lower extremity edema ASSESSMENT: Shortness of breath Acute on chronic heart failure with reduced ejection fraction, EF 20% History of nonischemic cardiomyopathy Paroxysmal atrial fibrillation History of AICD implantation Chronic kidney disease Valvular heart disease with previous aortic valve replacement Hypertension Hyperlipidemia PLAN: Continue current cardiac medications Patient is cleared for discharge with current cardiac medications. He may fol low up with Dr. Don in 1-2 weeks. Nurse practitioner note has been reviewed by physician. Signing provider agrees with the documented findings, assessment, and plan of care. Objective - Vital Signs Vital signs: Vital Signs Temp 97.6 F 06/16/22 23:58 Pulse 64 06/17/22 08:01 Resp 18 06/17/22 04:53 BP 98/68 06/17/22 04:53 Pulse Ox 96 06/17/22 04:53 FiO2 Intake & Output 06/16/22 06/17/22 06/17/22 18:59 06:59 18:59 Intake Total 834 118 Output Total 200 850 Balance 634 -850 118 Weight 101.2 kg Intake: Oral 834 118 Output: Urine 200 850 Other: Voiding Method Toilet Toilet Urinal Urinal # Voids 1 - Labs CBC & Chem 7: 06/13/22 18:24 06/17/22 05:37 Labs: Abnormal Lab Results - Last 24 Hours (Table) 06/16/22 06/17/22 Range/Units 08:49 05:37 Sodium 131 L 134 L (137-145) mmol/L Chloride 94 L 97 L (98-107) mmol/L Carbon Dioxide 33 H 31 H (22-30) mmol/L BUN 29 H (9-20) mg/dL Glucose 133 H 102 H (74-99) mg/dL
--- NOTE | 2022-06-17 13:44 | P.DS ---
Providers Date of admission: 06/15/22 17:58 Expected date of discharge: 06/17/22 Attending physician: Marjorie Marks Consults: 06/13/22 19:27 Consult Physician Urgent Consulting Provider: Adeel Chao Consult Reason/Comments: CHF exacerbation Do you want consulting provider notified?: Yes Primary care physician: Marjorie Marks Hospital Course: * 71-year-old male with a history of hypertension, hyperlipidemia, nonischemic cardiomyopathy status post AICD, chronic systolic heart failure, paroxysmal atrial fibrillation on eliquis, chronic kidney disease stage , valvular heart disease status post aortic valve replacement, remote history of tobacco use. * Patient complained of coughing and shortness of breath for the past 4-5 days gradually worsening especially when he is laying flat and with exertion as well as increased lower extremity edema. He has had to sleep in his recliner. He went to urgent care and he was directed to the emergency center for evaluation of heart failure. Patient forgot to take Lasix * EKG was ventricularly paced rhythm. Chest x-ray reveals cardiomegaly with small bilateral pleural effusions. Correlate for CHF exacerbation. * Recent echocardiogram performed on 04/15/2022 revealed severely impaired left ventricular systolic function EF 20-25% with global hypokinesis, wire was noted in the right ventricle possible PFO, bioprosthetic aortic valve not well visualized with mild aortic regurgitation with a mean gradient of 17 mmHg. Mild to moderate mitral regurgitation and mild tricuspid regurgitation. * WBC 9.3, hemoglobin 13.6, platelet count 143. INR 1. Electrolytes were normal. BUN 23 creatinine 1.23. Potassium 4. Troponin 0.042. ProBNP 6950. Liver function tests normal. Influenza A, influenza B, RSV, Covid 19 not detected. * Patient was treated with IV Lasix * During the hospital stay meds were adjusted patient was noted to be hypotensive and Entresto dose was decreased * Patient was transitioned to oral Lasix and was given a prescription upon discharge * potassium supplementation was provided as well ASSESSMENT: * Acute on chronic heart failure with reduced ejection fraction, EF 20% History of nonischemic myopathy * Paroxysmal atrial fibrillation * History of AICD implantation * Chronic kidney disease * Valvular heart disease with previous aortic valve replacement * Hypertension * Hyperlipidemia PLAN: * Received IV Lasix transitioned to oral Lasix upon discharge * Continue oral potassium * Continue metoprolol for A. fib * Continue ELIQUIS * Follow up with cardiology post discharge * Prescription for Mucinex provided Patient Condition at Discharge: Fair Plan - Discharge Summary Discharge Rx Participant: No New Discharge Prescriptions: New Sacubitril/Valsartan [Entresto 24 mg-26 mg Tablet] 1 each PO BID #60 tab guaiFENesin [Mucinex] 1,200 mg PO Q12HR #5 tab Potassium Chloride [Klor-Con M20] 20 meq PO BID 30 Days #60 tab Metoprolol Tartrate [Lopressor] 25 mg PO BID #60 tab Continue Atorvastatin [Lipitor] 20 mg PO DAILY Amiodarone [Cordarone] 100 mg PO DAILY #90 tab Fluticasone Nasal Mccrory [Flonase Nasal Mccrory] 2 spray EA NOSTRIL DAILY ml Apixaban [Eliquis] 5 mg PO BID #0 Prevagen 1 cap PO DAILY Furosemide [Lasix] 40 mg PO BID #60 tab Discontinued Sacubitril/Valsartan [Entresto 49 mg-51 mg Tablet] 1 tab PO BID #0 Discharge Medication List Atorvastatin [Lipitor] 20 mg PO DAILY 12/09/19 [History] Amiodarone [Cordarone] 100 mg PO DAILY #90 tab 03/16/20 [Rx] Prevagen 1 cap PO DAILY 04/15/22 [History] Apixaban [Eliquis] 5 mg PO BID #0 04/16/22 [Rx] Fluticasone Nasal Mccrory [Flonase Nasal Mccrory] 2 spray EA NOSTRIL DAILY ml 04/16/22 [Rx] Furosemide [Lasix] 40 mg PO BID #60 tab 04/16/22 [Rx] Metoprolol Tartrate [Lopressor] 25 mg PO BID #60 tab 06/17/22 [Rx] Potassium Chloride [Klor-Con M20] 20 meq PO BID 30 Days #60 tab 06/17/22 [Rx] Sacubitril/Valsartan [Entresto 24 mg-26 mg Tablet] 1 each PO BID #60 tab 06/17/22 [Rx] guaiFENesin [Mucinex] 1,200 mg PO Q12HR #5 tab 06/17/22 [Rx] Follow up Appointment(s)/Referral(s): Wiley Don MD [STAFF PHYSICIAN] - 1 Week Marjorie Marks MD [Primary Care Provider] - 1 Week Activity/Diet/Wound Care/Special Instructions: Post discharge continue on cardiac diet Follow-up in cardiology and primary care physician Monitor blood pressure while on new medications Discharge Disposition: HOME SELF-CARE
[2022-06-17 13:45] VITALS: BP 95/61; PULSE 63; RESP 18
[2022-06-17] MEDS ORDERED: FUROSEMIDE 40 MG TAB PO SCH (16:00)
== END 2022-06-17 15:33 | disposition home or self-care (01) | DRG 291 ==
LOC: EC 17:42 → 3SCARD 19:29 → OBSVTOIN 06-15 17:58
PROVIDERS: ADMIT Internal Medicine; ATTEND Internal Medicine
DX: I13.0 Hypertensive heart and chronic kidney disease with heart failure and stage 1 through stage 4 chronic kidney disease, or unspecified chronic kidney disease (principal); I50.23 Acute on chronic systolic (congestive) heart failure; Z20.822 Contact with and (suspected) exposure to COVID-19; I25.10 Atherosclerotic heart disease of native coronary artery without angina pectoris; E78.5 Hyperlipidemia, unspecified; E11.22 Type 2 diabetes mellitus with diabetic chronic kidney disease; I48.0 Paroxysmal atrial fibrillation; N18.2 Chronic kidney disease, stage 2 (mild); I42.8 Other cardiomyopathies; Z87.891 Personal history of nicotine dependence; I08.3 Combined rheumatic disorders of mitral, aortic and tricuspid valves; J44.9 Chronic obstructive pulmonary disease, unspecified; R00.0 Tachycardia, unspecified; I95.9 Hypotension, unspecified; Z79.899 Other long term (current) drug therapy; Z79.01 Long term (current) use of anticoagulants; Z95.2 Presence of prosthetic heart valve; Z95.810 Presence of automatic (implantable) cardiac defibrillator; Z96.643 Presence of artificial hip joint, bilateral; Z98.42 Cataract extraction status, left eye; Z82.49 Family history of ischemic heart disease and other diseases of the circulatory system
CPT/HCPCS: 36415; 71046; 80048; 80053; 83605; 83880; 84484; 85025; 85610; 85730; 87636; 93005; 94640; 96374; 96376; 99285

== ENCOUNTER → 2022-06-28 | Outpatient (CLI) | payer MEDICARE, OTHER ==
--- NOTE | 2022-06-28 10:29 | PE ---
EXAMINATION TYPE: PET CT fusion skull to thigh DATE OF EXAM: 06/28/2022 CLINICAL INDICATION:Male, 71 years old with history of R91.1 SPN; TECHNIQUE: Following the intravenous administration of 11.9 mCi of F-18 FDG, whole body images are performed from the skull base to the midthigh. Images are reviewed on the computer in the coronal, a xial, and sagittal planes. Reconstructed rotating images are created on independent workstation and reviewed on the computer. A non-contrast CT is performed in conjunction with the PET scan. Glucose level 106 mg/dL COMPARISON: CT CT chest 04/15/2022, PET/CT None, FINDINGS: Mediastinal SUV mean is 1.7. Hepatic parenchyma SUV mean is 2.9. SKULL BASE AND NECK: No suspicious radiotracer activity. CHEST, MEDIASTINUM, AND HILAR REGION: No suspicious radiotracer activity. Right lower lobe high densi ty lesion seen on CT may represent desiccation and a calcified granuloma. No suspicious FDG activity within pneumothorax. ABDOMEN AND PELVIS: No suspicious radiotracer activity. OSSEOUS STRUCTURES: No suspicious radiotracer activity. OTHER CT: Bilateral aphakia. There is atherosclerosis of the arterial vasculature. Trace bilateral pl eural effusions. Left chest wall cardiac conduction device with leads terminating in the heart. There is coronary artery calcifications and severe calcific patient's of the aortic valve. Heart is mildly enlarged for size. Bilateral hip arthroplasty changes. Hardware appears intact. Multilevel disc dege neration changes throughout the spine. Scattered colonic diverticulosis. IMPRESSION: No suspicious FDG activity within the lungs to correlate with finding on CT. Short-term follow-up CT with IV contrast in 3 months recommended.
== END | disposition home or self-care (01) ==
LOC: RADPETMAIN 06:39
PROVIDERS: ATTEND Internal Medicine Critical Care Medicine
DX: R91.1 Solitary pulmonary nodule (principal)
CPT/HCPCS: 78815; A9552

== ENCOUNTER 2022-07-28 18:35 | Inpatient (IN) | payer MEDICARE, OTHER ==
--- NOTE | 2022-07-28 19:38 | ED ---
General Adult HPI - General Chief complaint: Shortness of Breath Stated complaint: SOB arrythmia Time Seen by Provider: 07/28/22 19:18 Source: patient Mode of arrival: wheelchair Limitations: no limitations - History of Present Illness Initial comments: Patient presents to the ED with his for evaluation. Patient states that he has had increasing dyspnea over the past couple of weeks. 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 Patient states that he is on Lasix, and he states that he has been taking his Lasix, but his dyspnea has been getting worse. Patient admits to orthopnea as well. Patient also admits to having a slight cough. Patient denies fever, any pain, headache, focal numbness/weakness/neuro deficit, chest pain or pressure, palpitations, dizziness, nausea/vomiting/diaphoresis, abdominal pain, diarrhea, bloody or melanotic stool, dysuria/hematuria/urinary frequency/urinary symptoms, decreased urine output, leg or calf swelling or pain, or any other symptoms or complaints. - Related Data Home Medications Medication Instructions Recorded Confirmed Atorvastatin [Lipitor] 20 mg PO DAILY 12/09/19 06/13/22 Prevagen 1 cap PO DAILY 04/15/22 06/13/22 Previous Rx's Medication Instructions Recorded Amiodarone [Cordarone] 100 mg PO DAILY #90 tab 03/16/20 Apixaban [Eliquis] 5 mg PO BID #0 04/16/22 Fluticasone Nasal [place] [Flonase 2 spray EA NOSTRIL DAILY ml 04/16/22 Nasal [place]] Furosemide [Lasix] 40 mg PO BID #60 tab 04/16/22 Metoprolol Tartrate [Lopressor] 25 mg PO BID #60 tab 06/17/22 Potassium Chloride [Klor-Con M20] 20 meq PO BID 30 Days #60 tab 06/17/22 Sacubitril/Valsartan [Entresto 24 1 each PO BID #60 tab 06/17/22 mg-26 mg Tablet] guaiFENesin [Mucinex] 1,200 mg PO Q12HR #5 tab 06/17/22 Allergies Allergy/AdvReac Type Severity Reaction Status Date / Time No Known Allergies Allergy Verified 07/28/22 19:09 Review of Systems ROS Statement: Those systems with pertinent positive or pertinent negative responses have been documented in the HPI. ROS Other: All systems not noted in ROS Statement are negative. Past Medical History Past Medical History: Atrial Fibrillation, Chest Pain / Angina, Osteoarthritis (OA) Additional Past Medical History / Comment(s): Pt states his EF is 20%, pt states he takes lasix so he doesn't build up fluid around his heart, pt denies hx of htn or high cholesterol. History of Any Multi-Drug Resistant Organisms: None Reported Past Surgical History: AICD, Cardiac Valve Replacement, EPS, Joint Replacement, Pacemaker, Tonsillectomy Additional Past Surgical History / Comment(s): 2007 aortic valve replacement, AICD/pacer approximately 2012 at [facility], bilateral total hip arthroplasty, L eye cataract removal, colonoscopy. 03/16/20-EPS Past Anesthesia/Blood Transfusion Reactions: No Reported Reaction Type of Cardiac Device: Permanent Pacemaker, AICD Device Placement Date:: 2012 at [place] Past Psychological History: No Psychological Hx Reported Smoking Status: Former smoker Past Alcohol Use History: Daily Past Drug Use History: None Reported - Past Family History Father Family Medical History: No Reported History Mother Family Medical History: No Reported History Additional Family Medical History / Comment(s): . General Exam Limitations: no limitations General appearance: alert, in no apparent distress Head exam: Present: atraumatic, normocephalic Eye exam: Present: normal appearance, EOMI ENT exam: Present: mucous membranes moist Neck exam: Present: other (Trachea is in midline) Respiratory exam: Present: normal lung sounds bilaterally. Absent: respiratory distress, wheezes, rales, rhonchi, stridor Cardiovascular Exam: Present: regular rate, normal rhythm, normal heart sounds, other (Normal radial pulses bilaterally) GI/Abdominal exam: Present: soft. Absent: distended, tenderness, guarding Extremities exam: Present: other (1+ bilateral lower extremity pitting edema; negative Homans sign bilaterally). Absent: tenderness, calf tenderness Neurological exam: Present: alert, oriented X3 Psychiatric exam: Present: normal affect, normal mood Skin exam: Present: warm, dry, intact, normal color Course Vital Signs 07/28/22 19:05 Temperature 97.9 F Pulse Rate 66 Respiratory 24 Rate Blood Pressure 97/61 O2 Sat by Pulse 96 Oximetry - Reevaluation(s) Reevaluation #1: 07/28/22 21:09 Case, H&P, test results and ED management thus far were discussed with SALESFORCE TRAINER Malika Ventura. She accepts hospital admission on behalf of herself and Dr. Padron. She agrees with cardiology consultation. She has no further recommendations at this time. 07/28/22 21:22 Patient denies development of any new symptoms while in the ED. Patient remains alert and breathing comfortably. Patient and are aware the patient's test results, and patient agrees with hospital admission at this time. EKG Findings - EKG Comments: EKG Findings:: ED physician interpretation (interpreted by me): AV paced rhythm, ventricular rate of 67 bpm, QRS duration of 168 ms Medical Decision Making - Medical Decision Making Was pt. sent in by a medical professional or institution ([facility], SALESFORCE TRAINER, urgent care, hospital, or [facility]...) When possible be specific @ -No Did you speak to anyone other than the patient for history (EMS, parent, family, police, friend...)? What history was obtained from this source @ -No Did you review nursing and triage notes (agree or disagree)? Why? @ -I reviewed and agree with nursing and triage notes Were old charts reviewed (outside hosp., previous admission, EMS record, old EKG, old radiological studies, urgent care reports/EKG's, [facility] records)? Report findings @ -No old charts were reviewed Differential Diagnosis (chest pain, altered mental status, abdominal pain women, abdominal pain men, vaginal bleeding, weakness, fever, dyspnea, syncope, headache, dizziness, GI bleed, back pain, seizure, CVA, palpatations, mental health, musculoskeletal)? @ -Differential Dyspnea: Coronary syndrome, arrhythmia, tamponade, asthma, COPD, pneumonia, pneumothorax, pleural effusion, CHF, anemia, neuromuscular, anxiety, renal insufficiency this is not meant to be an all-inclusive list. EKG interpreted by me (3pts min.). @ -As above X-rays interpreted by me (1pt min.). @ -Patient's chest x-ray was reviewed myself and shows findings suggestive of CHF. I agree with the radiologist's interpretation as above. CT interpreted by me (1pt min.). @ -None done U/S interpreted by me (1pt. min.). @ -None done What testing was considered but not performed or refused? (CT, X-rays, U/S, labs)? Why? @ -None What meds were considered but not given or refused? Why? @ -None Did you discuss the management of the patient with other professionals (marla farooq i.e. , PA, SALESFORCE TRAINER, lab, RT, psych nurse, social worker masters, engine turner, teacher, staff electronic warfare officer, residential case manager)? Give summary @ -As above Was smoking cessation discussed for >3mins.? @ -No Was critical care preformed (if so, how long)? @ -No Were there social determinants of health that impacted care today? How? (Homelessness, low income, unemployed, alcoholism, drug addiction, transp ortation, low edu. Level, literacy, decrease access to med. care, prison, rehab)? @ -No Was there de-escalation of care discussed even if they declined (Discuss DNR or withdrawal of care, Hospice)? DNR status @ -No What co-morbidities impacted this encounter? (DM, HTN, Smoking, COPD, CAD, Cancer, CVA, ARF, Chemo, Hep., AIDS, mental health diagnosis, sleep apnea, morbid obesity)? @ -None Was patient admitted / discharged? Hospital course, mention meds given and route, prescriptions, significant lab abnormalities, going to OR and other pertinent info. @ -Patient's EKG shows an AV paced rhythm. Patient's chest x-ray demonstrate findings consistent with CHF. Patient's BNP is elevated at 3860. Patient's troponin is within the normal range, and patient denies having any chest pain. Patient is on Eliquis anticoagulation. Patient is not hypoxic, and he is nieves athing comfortably. I suspect that the patient's symptoms are due to CHF. Patient has been treated with a dose of IV Lasix in the ED. Will admit the patient to the hospital for further evaluation/management and cardiology consultation. SALESFORCE TRAINER Malika Ventura has accepted hospital admission. Patient and agree with this plan. Undiagnosed new problem with uncertain prognosis? @ -No Drug Therapy requiring intensive monitoring for toxicity (Heparin, Nitro, Insulin, Cardizem)? @ -No Were any procedures done? @ -No Diagnosis/symptom? @ -CHF Acute, or Chronic, or Acute on Chronic? @ -Acute Uncomplicated (without systemic symptoms) or Complicated (systemic symptoms)? @ -default Side effects of treatment? @ -No Exacerbation, Progression, or Severe Exacerbation? @ -No Poses a threat to life or bodily function? How? (Chest pain, [place], [place], pneumonia, PE, COPD, DKA, ARF, appy, cholecystitis, CVA, Diverticulitis, Homicidal, Suicidal, threat to staff... and all critical care pts) @ -No Diagnosis/symptom? @ -Renal insufficiency Acute, or Chronic, or Acute on Chronic? @ -Acute Uncomplicated (without systemic symptoms) or Complicated (systemic symptoms)? @ -default Side effects of treatment? @ -none Exacerbation, Progression, or Severe Exacerbation] @ -no Poses a threat to life or bodily function? @ -no - Lab Data Result diagrams: 07/28/22 19:56 07/28/22 19:56 Lab Results 07/28/22 07/28/22 07/28/22 Range/Units 19:56 19:56 19:56 WBC 7.3 (3.8-10.6) k/uL RBC 4.26 L (4.30-5.90) m/uL Hgb 14.1 (13.0-17.5) gm/dL Hct 41.3 (39.0-53.0) % MCV 97.1 (80.0-100.0) fL MCH 33.1 (25.0-35.0) pg MCHC 34.1 (31.0-37.0) g/dL RDW 13.1 (11.5-15.5) % Plt Count 123 L (150-450) k/uL MPV 7.6 PT 10.1 (9.0-12.0) sec INR 1.0 (<1.2) APTT 23.1 (22.0-30.0) sec Sodium 135 L (137-145) mmol/L Potassium 4.1 (3.5-5.1) mmol/L Chloride 102 (98-107) mmol/L Carbon Dioxide 21 L (22-30) mmol/L Anion Gap 12 mmol/L BUN 29 H (9-20) mg/dL Creatinine 1.88 H (0.66-1.25) mg/dL Est GFR (CKD-EPI)AfAm 41 (>60 ml/min/1.73 sqM) Est GFR (CKD-EPI)NonAf 36 (>60 ml/min/1.73 sqM) Glucose 88 (74-99) mg/dL Calcium 8.3 L (8.4-10.2) mg/dL Total Bilirubin 0.3 (0.2-1.3) mg/dL AST 61 H (17-59) U/L ALT 49 (4-49) U/L Alkaline Phosphatase 63 (38-126) U/L Troponin I (0.000-0.034) ng/mL NT-Pro-B Natriuret Pep pg/mL Total Protein 6.3 (6.3-8.2) g/dL Albumin 4.0 (3.5-5.0) g/dL 07/28/22 07/28/22 Range/Units 19:56 19:56 WBC (3.8-10.6) k/uL RBC (4.30-5.90) m/uL Hgb (13.0-17.5) gm/dL Hct (39.0-53.0) % MCV (80.0-100.0) fL MCH (25.0-35.0) pg MCHC (31.0-37.0) g/dL RDW (11.5-15.5) % Plt Count (150-450) k/uL MPV PT (9.0-12.0) sec INR (<1.2) APTT (22.0-30.0) sec Sodium (137-145) mmol/L Potassium (3.5-5.1) mmol/L Chloride (98-107) mmol/L Carbon Dioxide (22-30) mmol/L Anion Gap mmol/L BUN (9-20) mg/dL Creatinine (0.66-1.25) mg/dL Est GFR (CKD-EPI)AfAm (>60 ml/min/1.73 sqM) Est GFR (CKD-EPI)NonAf (>60 ml/min/1.73 sqM) Glucose (74-99) mg/dL Calcium (8.4-10.2) mg/dL Total Bilirubin (0.2-1.3) mg/dL AST (17-59) U/L ALT (4-49) U/L Alkaline Phosphatase (38-126) U/L Troponin I 0.033 (0.000-0.034) ng/mL NT-Pro-B Natriuret Pep 3860 pg/mL Total Protein (6.3-8.2) g/dL Albumin (3.5-5.0) g/dL - Radiology Data Chest x-ray: Cardiomegaly, pulmonary vascular congestion and bilateral pleural effusions. Correlate with BNP for congestive heart failure. Disposition Clinical Impression: Renal insufficiency, CHF (congestive heart failure) Disposition: ADMITTED IP TO THIS HOSP Condition: Stable Is patient prescribed a controlled substance at d/c from ED?: No Referrals: Marjorie Marks MD [Primary Care Provider] - 1-2 days Time of Disposition: 21:15
--- NOTE | 2022-07-28 19:48 | XR ---
EXAMINATION TYPE: XR chest 1V portable DATE OF EXAM: 07/28/2022 7:40 PM COMPARISON: Chest radiographs from 06/13/2022 TECHNIQUE: XR chest 1V portable Frontal view of the chest. CLINICAL INDICATION:Male, 71 years old with history of dyspnea; FINDINGS: Lungs/Pleura: No evidence of focal consolidation or pneumothorax. Blunting of the costophrenic angles is present. Pulmonary vascularity: Unremarkable. Heart/mediastinum: Cardiomediastinal silhouette is enlarged and stable. Three lead cardiac conduction device overlying the left hemithorax with lead tips projecting over the right ventricle, right atriu m and coronary sinus. Musculoskeletal: No acute osseous pathology. IMPRESSION: Cardiomegaly, pulmonary vascular congestion and bilateral pleural effusions. Correlate with BNP for c ongestive heart failure.
[2022-07-28 20:16] LABS: HCT 41.3 % (39.0-53.0); HGB 14.1 gm/dL (13.0-17.5); MCH 33.1 pg (25.0-35.0); MCHC 34.1 g/dL (31.0-37.0); MCV 97.1 fL (80.0-100.0); Mean Platelet Volume 7.6; Platelet Count 123 k/uL (150-450); RBC 4.26 m/uL (4.30-5.90); RDW 13.1 % (11.5-15.5); WBC 7.3 k/uL (3.8-10.6)
[2022-07-28 20:26] LABS: Partial Thromboplastin Time 23.1 sec (22.0-30.0); Prothrombin Time 10.1 sec (9.0-12.0)
[2022-07-28 20:33] LABS: Calcium 8.3 mg/dL (8.4-10.2); Potassium 4.1 mmol/L (3.5-5.1); Total Bilirubin 0.3 mg/dL (0.2-1.3); Total Protein 6.3 g/dL (6.3-8.2)
[2022-07-28] MEDS ORDERED: FUROSEMIDE 10 MG/ML 10 ML VIAL IV STA (21:09)
[2022-07-28 21:11] LABS: Band Neutrophils % 2 %; Lymphocytes # (M) 2.34 k/uL (1.0-4.8); Monocytes # (M) 0.58 k/uL (0-1.0); Neutrophils % (M) 58 %; Nucleated Red Blood Cells 0 /100 WBC (0-0); RBC Morphology Normal; Total Cells Counted 100
[2022-07-28] MEDS ORDERED: NALOXONE 0.4 MG/ML 1 ML VIAL IV PRN (21:15)
[2022-07-29 02:03] LABS: HCT 40.1 % (39.0-53.0); HGB 13.4 gm/dL (13.0-17.5); MCH 32.2 pg (25.0-35.0); MCHC 33.3 g/dL (31.0-37.0); MCV 96.5 fL (80.0-100.0); Mean Platelet Volume 8.2; Platelet Count 109 k/uL (150-450); RBC 4.15 m/uL (4.30-5.90); RDW 13.4 % (11.5-15.5); WBC 7.1 k/uL (3.8-10.6)
[2022-07-29 02:13] LABS: Albumin 3.9 g/dL (3.5-5.0); Calcium 8.2 mg/dL (8.4-10.2); Potassium 3.8 mmol/L (3.5-5.1); Total Bilirubin 0.2 mg/dL (0.2-1.3)
[2022-07-29 03:37] LABS: Lymphocytes # (M) 2.13 k/uL (1.0-4.8); Monocytes # (M) 0.57 k/uL (0-1.0); Neutrophils % (M) 62 %; Nucleated Red Blood Cells 0 /100 WBC (0-0); RBC Morphology Normal; Total Cells Counted 100
[2022-07-29] MEDS ORDERED: POTASSIUM CHLORIDE ER 20 MEQ TAB.ER PO SCH (09:00)
--- NOTE | 2022-07-29 10:31 | P.CRDCN ---
History of Present Illness Consult date: 07/29/22 Consult reason: congestive heart failure History of present illness: HISTORY OF PRESENT ILLNESS: This is a 71-year-old male who follows in the office with Dr. Don. Patient has a history of nonischemic cardiomyopathy, paroxysmal atrial fibrillation, congestive heart failure, AICD implantation, chronic kidney disease, valvular heart disease with previous aortic valve replacement, hypertension, and hyperlipidemia. We have been asked to evaluate the patient for heart failure. Patient gives history that he saw Dr. Don on Friday, Lasix was increased and metolazone was added as well as Farxiga but he has not started those medication s. He is complaining of shortness of breath and difficulty with breathing on exertion for the past couple weeks and worsening. He states he has chronic shortness of breath but this is much worse than his baseline. He does complain of some chest pressure. He denies having any weight gain and states he has a minimal amount of lower extremity edema. He states he is taking all his medications as directed and following on no added salt diet. He does note that is Lasix does not seem to be diuresing him as well as in the past. Patient is status post 1 dose of IV Lasix 80 mg. EKG atrial paced rhythm Chest x-ray reveals cardiomegaly, pulmonary vascular congestion and bilateral pleural effusions. WBC 7.1, hemoglobin 13.4, platelet count 109. Sodium 136, potassium 3.8, chloride 104, CO2 23, BUN 29, creatinine initially 1.88 and now at 1.59. Troponin 0.033, 0.044 and 0.029. ProBNP 3860. Home cardiac medications: Amiodarone 200 mg daily, eliquis 5 mg twice daily, Farxiga 10 mg daily, Lasix 40 mg twice daily, Toprol-XL 50 mg daily, potassium 20 mEq twice daily, Entresto 4951 milligrams 1 twice daily Echocardiogram 04/2022 revealed EF of 20-25%. Wire noted in the right ventricle, possible PFO. Bioprosthetic aortic valve not well visualized with mild aortic regurgitation and mean gradient 17 mmHg. Mild to moderate mitral regurgitation and mild tricuspid regurgitation. Biventricular ICD upgraded 04/2020 [employer] Review Of Systems: Constitutional: No fever, no chills. EENT: No headache. Lungs: Reports shortness of breath, cough, no sputum production. No wheezing. Reports dyspnea on exertion. Cardiovascular: No chest pain, no lower extremity edema. No palpitations. No paroxysmal nocturnal dyspnea. No orthopnea. No lightheadedness or dizziness. No syncopal episodes. Abdominal: No abdominal pain. Musculoskeletal: No myalgias. Neurologic: No aphasia. No facial droop. No change in mentation. PHYSICAL EXAM: VITAL SIGNS: Reviewed. GENERAL: Well-developed in no acute distress. NECK: Supple. No JVD or thyromegaly LUNGS: Respirations even and unlabored. Lungs diminished. HEART: Regular rate and rhythm. S1 and S2 heard. Systolic murmur noted. EXTREMITIES: Normal range of motion. No clubbing or cyanosis. Peripheral pulses intact. No lower extremity edema ASSESSMENT: Acute on chronic heart failure with reduced ejection fraction, EF 20% History of nonischemic cardiomyopathy Paroxysmal atrial fibrillation History of AICD implantation Chronic kidney disease Valvular heart disease with previous aortic valve replacement Hypertension Hyperlipidemia Thrombocytopenia PLAN: Resume patient's home cardiac medications Start patient on Lasix 40 mg IV every 12 hours Add Aldactone 25 mg daily and discontinue potassium supplement Monitor I&O, daily weights, electrolytes and renal function Additional recommendations as patient progresses Thank you kindly for this consultation. Nurse practitioner note has been reviewed by physician. Signing provider agrees with the documented findings, assessment, and plan of care. Past Medical History Past Medical History: Atrial Fibrillation, Chest Pain / Angina, Osteoarthritis (OA) Additional Past Medical History / Comment(s): Pt states his EF is 20%, pt states he takes lasix so he doesn't build up fluid around his heart, pt denies hx of h tn or high cholesterol. History of Any Multi-Drug Resistant Organisms: None Reported Past Surgical History: AICD, Cardiac Valve Replacement, EPS, Joint Replacement, Pacemaker, Tonsillectomy Additional Past Surgical History / Comment(s): 2007 aortic valve replacement, AICD/pacer approximately 2013 at [facility], bilateral total hip arthroplasty, L eye cataract removal, colonoscopy. 03/16/20-EPS Past Anesthesia/Blood Transfusion Reactions: No Reported Reaction Type of Cardiac Device: Permanent Pacemaker, AICD Device Placement Date:: 2012 at [place] Smoking Status: Never smoker - Past Family History Father Family Medical History: No Reported History Mother Family Medical History: No Reported History Additional Family Medical History / Comment(s): . Medications and Allergies Home Medications Medication Instructions Recorded Confirmed Type Prevagen 1 cap PO DAILY 04/15/22 07/28/22 History Apixaban [Eliquis] 5 mg PO BID #0 04/16/22 07/28/22 Rx Furosemide [Lasix] 40 mg PO BID #60 tab 04/16/22 07/28/22 Rx Potassium Chloride [Klor-Con M20] 20 meq PO BID 30 Days #60 tab 06/17/22 07/28/22 Rx Amiodarone [Cordarone] 200 mg PO DAILY 07/28/22 07/28/22 History Dapagliflozin Propanediol [Farxiga] 10 mg PO DAILY 07/28/22 07/28/22 History Metoprolol Succinate (ER) [Toprol 50 mg PO DAILY 07/28/22 07/28/22 History Xl] Sacubitril/Valsartan [Entresto 49 1 tab PO BID 07/28/22 07/28/22 History mg-51 mg Tablet] guaiFENesin [Mucinex] 1,200 mg PO BID 07/28/22 07/28/22 History Allergies Allergy/AdvReac Type Severity Reaction Status Date / Time No Known Allergies Allergy Verified 07/28/22 21:40 Physical Exam Vitals: Vital Signs Temp Pulse Pulse Resp BP BP Pulse Ox 07/29/22 08:00 97.8 F 72 16 91/58 100 07/29/22 07:56 100 07/29/22 04:00 70 20 96/61 98 07/29/22 02:00 66 21 07/28/22 23:24 98.2 F 66 21 104/66 97 07/28/22 21:40 64 20 104/68 95 07/28/22 19:05 97.9 F 66 24 97/61 96 Intake and Output 07/28/22 07/29/22 07/29/22 22:59 06:59 14:59 Intake Total 240 Output Total 900 Balance -660 Intake: Oral 240 Output: Urine 900 Other: Weight 103.419 kg 102.4 kg Results 07/29/22 01:51 07/29/22 01:51 Cardiac Enzymes 07/28/22 07/28/22 07/28/22 Range/Units 19:56 19:56 23:04 AST 61 H (17-59) U/L Troponin I 0.033 0.044 H* (0.000-0.034) ng/mL 07/29/22 07/29/22 Range/Units 01:51 01:51 AST 45 (17-59) U/L Troponin I 0.029 (0.000-0.034) ng/mL Coagulation 07/28/22 Range/Units 19:56 PT 10.1 (9.0-12.0) sec APTT 23.1 (22.0-30.0) sec CBC 07/28/22 07/29/22 Range/Units 19:56 01:51 WBC 7.3 7.1 (3.8-10.6) k/uL RBC 4.26 L 4.15 L (4.30-5.90) m/uL Hgb 14.1 13.4 (13.0-17.5) gm/dL Hct 41.3 40.1 (39.0-53.0) % Plt Count 123 L 109 L (150-450) k/uL Comprehensive Metabolic Panel 07/28/22 07/29/22 Range/Units 19:56 01:51 Sodium 135 L 136 L (137-145) mmol/L Potassium 4.1 3.8 (3.5-5.1) mmol/L Chloride 102 104 (98-107) mmol/L Carbon Dioxide 21 L 23 (22-30) mmol/L BUN 29 H 29 H (9-20) mg/dL Creatinine 1.88 H 1.59 H (0.66-1.25) mg/dL Glucose 88 102 H (74-99) mg/dL Calcium 8.3 L 8.2 L (8.4-10.2) mg/dL AST 61 H 45 (17-59) U/L ALT 49 43 (4-49) U/L Alkaline Phosphatase 63 69 (38-126) U/L Total Protein 6.3 6.0 L (6.3-8.2) g/dL Albumin 4.0 3.9 (3.5-5.0) g/dL Current Medications Generic Name Dose Route Start Last Admin Trade Name Freq PRN Reason Stop Dose Admin Naloxone HCl 0.2 mg 07/28/22 21:15 Naloxone 0.4 Mg/Ml 1 Ml Vial IV Q2M PRN Opioid Reversal Intake and Output 07/28/22 07/29/22 07/29/22 22:59 06:59 14:59 Intake Total 240 Output Total 900 Balance -660 Intake: Oral 240 Output: Urine 900 Other: Weight 103.419 kg 102.4 kg 07/29/22 01:51 07/29/22 01:51
[2022-07-29] MEDS: APIXABAN 5 MG TAB PO SCH ×2 (11:52→20:04)
[2022-07-29] MEDS: SPIRONOLACTONE 25 MG TAB PO SCH (11:52)
[2022-07-29] MEDS: METOPROLOL SUCCINATE (ER) 50 MG TAB.ER.24H PO SCH (11:53)
[2022-07-29] MEDS: AMIODARONE 200 MG TAB PO SCH (11:53)
[2022-07-29] MEDS: FUROSEMIDE 10 MG/ML 4 ML VIAL IV SCH ×2 (11:53→20:04)
[2022-07-29] MEDS: SACUBITRIL/VALSARTAN 49 MG-51 MG TABLET PO SCH ×2 (11:53→20:04)
[2022-07-29] MEDS: DAPAGLIFLOZIN PROPANEDIOL 10 MG TABLET PO SCH (11:53)
--- NOTE | 2022-07-29 12:58 | P.HPIM ---
History of Present Illness H&P Date: 07/29/22 HISTORY OF PRESENT ILLNESS This is a 71-year-old male with a history of hypertension, hyperlipidemia, nonischemic cardiomyopathy status post AICD, chronic systolic heart failure, paroxysmal atrial fibrillation on eliquis, chronic kidney disease stage II , valvular heart disease status post aortic valve replacement, remote history of tobacco use. Patient patient states he has had shortness of breath and difficulty with breathing on exertion for the past couple weeks and worsening. Patient saw Dr. Don on Friday and he may medication adjustments including increasing Lasix and adding metolazone and Farxiga but he has not started taking these medications. He has been following a no added salt diet and taking his other medications as instructed. He denies having any weight gain and has minimal amount of lower extremity edema. EKG was ventricularly paced rhythm. Chest x-ray reveals cardiomegaly, pulmonary vascular congestion and bilateral pleural effusions.WBC 7.1, hemoglobin 13.4, platelet count 109. Sodium 136, potassium 3.8, chloride 104, CO2 23, BUN 29, creatinine initially 1.88 and now at 1.59. Troponin 0.033, 0.044 and 0.029. ProBNP 3860.Recent echocardiogram performed on 04/15/2022 revealed severely impaired left ventricular systolic function EF 20-25% with global hypokinesis, wire was noted in the right ventricle possible PFO, bioprosthetic aortic valve not well visualized with mild aortic regurgitation with a mean gradient of 17 mmHg. Mild to moderate mitral regurgitation and mild tricuspid regurgitation. Patient received 1 dose of IV Lasix in the emergency center and was admitted to the cardiac stepdown unit. Patient has been seen by cardiology and his home medications have been resumed and patient started on IV Lasix 40 mg every 12 hours and Aldactone was added. REVIEW OF SYSTEMS Constitutional: No fever, no chills, no night sweats. No weight change. No weakness, fatigue or lethargy. No daytime sleepiness. EENT: No headache. No blurred vision or double vision, no loss of vision. No loss of Hearing, no ringing in the ears, no dizziness. No nasal drainage or congestion. No epistaxis. No sore throat. Lungs: Reports shortness of breath, denies ough, no sputum production. No wheezing. Reports dyspnea on exertion Cardiovascular: No chest pain, no lower extremity edema. No palpitations. Denies aroxysmal nocturnal dyspnea. Reports orthopnea. No lightheadedness or dizziness. No syncopal episodes. Abdominal: No abdominal pain. No nausea, vomiting. No diarrhea. No constipation. No bloody or tarry stools. No loss of appetite. Genitourinary: No dysuria, increased frequency, urgency. No urinary retention. Musculoskeletal: No myalgias. No muscle weakness, no gait dysfunction, no frequent falls. No back pain. No neck pain. Integumentary: No wounds, no lesions. No rash or pruritus. No unusual bruising. No change in hair or nails. Neurologic: No aphasia. No facial droop. No change in mentation. No head injury. No headache. No paralysis. No paresthesia. Psychiatric: No depression. No anxiety. No mood swings. Endocrine: No abnormal blood sugars. No weight change. No excessive sweating or thirst. No cold intolerance. MEDICAL HISTORY Hypertension Hyperlipidemia Nonischemic cardiac myopathy status post AICD Chronic systolic heart failure Paroxysmal atrial fibrillation on eliquis Chronic kidney disease stage II Valvular heart disease status post aortic valve replacement. SURGICAL HISTORY Left hip replacement Right hip replacement Aortic valve replacement AICD 03/2020. SOCIAL HISTORY Patient was a smoker and quit more than 20 years ago. He smoked only briefly. No alcohol abuse. No marijuana use. FAMILY HISTORY Father at age 74 from COPD and had history of skin cancer. Mother at age 82 from heart failure and COPD. Patient has 1 brother alive with no major medical problems. Patient has one sister with no major medical problems. Patient has 2 sons and one daughter with no major medical problems. PHYSICAL EXAMINATION Gen: This is a 71-year-old obese male. He is resting in bed and appears to be comfortable and in no acute distress. HEENT: Head is atraumatic, normocephalic. Pupils equal, round. Sclerae is anicteric. NECK: Supple. No JVD. No lymphadenopathy. No thyromegaly. LUNGS: Fine crackles bilateral bases. No intercostal retractions. HEART: Regular rate and rhythm. 2/6 systolic murmur at the left sternal border. ABDOMEN: Soft. Bowel sounds are present. No masses. No tenderness. EXTREMITIES: No pedal edema. No calf tenderness. NEUROLOGICAL: Patient is awake, alert and oriented x3. Cranial nerves 2 through 12 are grossly intact. ASSESSMENT AND PLAN 1. Acute on chronic systolic heart failure. Cardiology consult appreciated. Patient has been started on Lasix 40 g IV every 12 hours, monitor I&O, daily weights, electrolytes and renal function. Patient has been started on Aldactone 25 mg daily, continue Entresto 4951 twice daily, Toprol-XL 50 mg daily, Farxiga milligrams daily 2. Nonischemic cardio myopathy status post AICD. Stable. continue medications as in #1. 3. Hypertension. Continue Entresto twice daily. 4. Hyperlipidemia. Continue atorvastatin 20 mg daily. 5. Paroxysmal atrial fibrillation, currently in a sinus rhythm. Continue patient on amiodarone 200 mg daily, eliquis 5 mg twice daily. 6. Chronic kidney disease II. Avoid nephrotoxic agents, monitor renal function closely. 7. Valvular heart disease status post aortic valve replacement, stable. 8. GI prophylaxis. Protonix 40 mg oral daily. 9. DVT prophylaxis. Eliquis 5 mg twice daily. Patient will be admitted to the hospital for a minimum of 2 night stay. DISCHARGE PLAN Return home. Impression and plan of care have been directed as dictated by the signing physician. Svetlana Rivers nurse practitioner acting as scribe for signing physician. Past Medical History Past Medical History: Atrial Fibrillation, Chest Pain / Angina, Osteoarthritis (OA) Additional Past Medical History / Comment(s): Pt states his EF is 20%, pt states he takes lasix so he doesn't build up fluid around his heart, pt denies hx of htn or high cholesterol. History of Any Multi-Drug Resistant Organisms: None Reported Past Surgical History: AICD, Cardiac Valve Replacement, EPS, Joint Replacement, Pacemaker, Tonsillectomy Additional Past Surgical History / Comment(s): 2007 aortic valve replacement, AICD/pacer approximately 2013 at [facility], bilateral total hip arthroplasty, L eye cataract removal, colonoscopy. 03/16/20-EPS Past Anesthesia/Blood Transfusion Reactions: No Reported Reaction Type of Cardiac Device: Permanent Pacemaker, AICD Device Placement Date:: 2012 at [place] Smoking Status: Never smoker - Past Family History Father Family Medical History: No Reported History Mother Family Medical History: No Reported History Additional Family Medical History / Comment(s): . Medications and Allergies Home Medications Medication Instructions Recorded Confirmed Type Prevagen 1 cap PO DAILY 04/15/22 07/28/22 History Apixaban [Eliquis] 5 mg PO BID #0 04/16/22 07/28/22 Rx Furosemide [Lasix] 40 mg PO BID #60 tab 04/16/22 07/28/22 Rx Potassium Chloride [Klor-Con M20] 20 meq PO BID 30 Days #60 tab 06/17/22 05/04/01 Rx Amiodarone [Cordarone] 200 mg PO DAILY 07/28/22 07/28/22 History Dapagliflozin Propanediol [Farxiga] 10 mg PO DAILY 07/28/22 07/28/22 History Metoprolol Succinate (ER) [Toprol 50 mg PO DAILY 07/28/22 07/28/22 History Xl] Sacubitril/Valsartan [Entresto 49 1 tab PO BID 07/28/22 07/28/22 History mg-51 mg Tablet] guaiFENesin [Mucinex] 1,200 mg PO BID 07/28/22 07/28/22 History Allergies Allergy/AdvReac Type Severity Reaction Status Date / Time No Known Allergies Allergy Verified 07/28/22 21:40 Physical Exam Vitals: Vital Signs Temp Pulse Pulse Resp BP BP Pulse Ox 07/29/22 11:57 72 16 103/71 98 07/29/22 08:00 97.8 F 72 16 91/58 100 07/29/22 07:56 100 07/29/22 04:00 70 20 96/61 98 07/29/22 02:00 66 21 07/28/22 23:24 98.2 F 66 21 104/66 97 07/28/22 21:40 64 20 104/68 95 07/28/22 19:05 97.9 F 66 24 97/61 96 Intake and Output 07/28/22 07/29/22 07/29/22 22:59 06:59 14:59 Intake Total 240 110 Output Total 900 Balance -660 110 Intake: Oral 240 110 Output: Urine 900 Other: Weight 103.419 kg 102.4 kg Results CBC & Chem 7: 07/29/22 01:51 07/29/22 01:51 Labs: Abnormal Lab Results - Last 24 Hours (Table) 07/28/22 07/28/22 07/28/22 Range/Units 19:56 19:56 23:04 RBC 4.26 L (4.30-5.90) m/uL Plt Count 123 L (150-450) k/uL Sodium 135 L (137-145) mmol/L Carbon Dioxide 21 L (22-30) mmol/L BUN 29 H (9-20) mg/dL Creatinine 1.88 H (0.66-1.25) mg/dL Glucose (74-99) mg/dL Calcium 8.3 L (8.4-10.2) mg/dL AST 61 H (17-59) U/L Troponin I 0.044 H* (0.000-0.034) ng/mL Total Protein (6.3-8.2) g/dL 07/29/22 07/29/22 Range/Units 01:51 01:51 RBC 4.15 L (4.30-5.90) m/uL Plt Count 109 L (150-450) k/uL Sodium 136 L (137-145) mmol/L Carbon Dioxide (22-30) mmol/L BUN 29 H (9-20) mg/dL Creatinine 1.59 H (0.66-1.25) mg/dL Glucose 102 H (74-99) mg/dL Calcium 8.2 L (8.4-10.2) mg/dL AST (17-59) U/L Troponin I (0.000-0.034) ng/mL Total Protein 6.0 L (6.3-8.2) g/dL Thrombosis Risk Factor Assmnt - Choose All That Apply Any of the Below Risk Factors Present?: Yes Each Factor Represents 1 point: Heart failure (<1month), Swollen legs (current) Other Risk Factors: Yes Each Risk Factor Represents 2 Points: Age 61-74 years Other congenital or acquired thrombophilia - If yes, enter type in comment: No Thrombosis Risk Factor Assessment Total Risk Factor Score: 4 Thrombosis Risk Factor Assessment Level: Moderate Risk
[2022-07-30] MEDS: PANTOPRAZOLE 40 MG TABLET PO SCH (06:19)
[2022-07-30] MEDS: APIXABAN 5 MG TAB PO SCH ×2 (09:18→19:52)
[2022-07-30] MEDS: SACUBITRIL/VALSARTAN 49 MG-51 MG TABLET PO SCH ×2 (09:18→19:52)
[2022-07-30] MEDS: AMIODARONE 200 MG TAB PO SCH (09:18)
[2022-07-30] MEDS: FUROSEMIDE 10 MG/ML 4 ML VIAL IV SCH ×2 (09:19→19:52)
[2022-07-30] MEDS: DAPAGLIFLOZIN PROPANEDIOL 10 MG TABLET PO SCH (09:19)
[2022-07-30] MEDS: METOPROLOL SUCCINATE (ER) 50 MG TAB.ER.24H PO SCH (09:19)
[2022-07-30] MEDS: SPIRONOLACTONE 25 MG TAB PO SCH (09:19)
[2022-07-30 12:34] LABS: Calcium 8.7 mg/dL (8.4-10.2); Potassium 4.4 mmol/L (3.5-5.1)
--- NOTE | 2022-07-30 13:44 | P.PN ---
Subjective Progress Note Date: 07/30/22 HISTORY OF PRESENT ILLNESS This is a 71-year-old male with a history of hypertension, hyperlipidemia, nonischemic cardiomyopathy status post AICD, chronic systolic heart failure, paroxysmal atrial fibrillation on eliquis, chronic kidney disease stage II , valvular heart disease status post aortic valve replacement, remote history of tobacco use. Patient patient states he has had shortness of breath and difficulty with breathing on exertion for the past couple weeks and worsening. Patient saw Dr. Don on Friday and he may medication adjustments including increasing Lasix and adding metolazone and Farxiga but he has not started taking these medications. He has been following a no added salt diet and taking his other medications as instructed. He denies having any weight gain and has minimal amount of lower extremity edema. EKG was ventricularly paced rhythm. Chest x-ray reveals cardiomegaly, pulmonary vascular congestion and bilateral pleural effusions.WBC 7.1, hemoglobin 13.4, platelet count 109. Sodium 136, potassium 3.8, chloride 104, CO2 23, BUN 29, creatinine initially 1.88 and now at 1.59. Troponin 0.033, 0.044 and 0.029. ProBNP 3860.Recent echocardiogram performed on 04/15/2022 revealed severely impaired left ventricular systolic funct ion EF 20-25% with global hypokinesis, wire was noted in the right ventricle possible PFO, bioprosthetic aortic valve not well visualized with mild aortic regurgitation with a mean gradient of 17 mmHg. Mild to moderate mitral regurgitation and mild tricuspid regurgitation. Patient received 1 dose of IV Lasix in the emergency center and was admitted to the cardiac stepdown unit. Patient has been seen by cardiology and his home medications have been resumed and patient started on IV Lasix 40 mg every 12 hours and Aldactone was added. 07/30: Patient states that he didn't sleep well during the night as he could not get comfortable. He slept in the recliner which apparently he does at home. Leg swelling is improved as patient has been keeping his legs elevated. Shortness of breath seems to be improving. He is continued on IV Lasix 40 mg every 12 hours. Weight is unchanged. Repeat blood work reveals improvement of renal function with a BUN 31 creatinine 1.399. Potassium 4.4. REVIEW OF SYSTEMS Constitutional: No fever, no chills, no night sweats. No weight change. No weakness, fatigue or lethargy. No daytime sleepiness. EENT: No headache. No blurred vision or double vision, no loss of vision. No loss of Hearing, no ringing in the ears, no dizziness. No nasal drainage or congestion. No epistaxis. No sore throat. Lungs: Reports shortness of breath-improving, denies ough, no sputum production. No wheezing. Reports dyspnea on exertion Cardiovascular: No chest pain, reported lower extremity edema-improved. No palpitations. Denies aroxysmal nocturnal dyspnea. Reports orthopnea. No lightheadedness or dizziness. No syncopal episodes. Abdominal: No abdominal pain. No nausea, vomiting. No diarrhea. No constipation. No bloody or tarry stools. No loss of appetite. Genitourinary: No dysuria, increased frequency, urgency. No urinary retention. Musculoskeletal: No myalgias. No muscle weakness, no gait dysfunction, no freq uent falls. No back pain. No neck pain. Integumentary: No wounds, no lesions. No rash or pruritus. No unusual bruising. No change in hair or nails. Neurologic: No aphasia. No facial droop. No change in mentation. No head injury. No headache. No paralysis. No paresthesia. Psychiatric: No depression. No anxiety. No mood swings. Endocrine: No abnormal blood sugars. No weight change. No excessive sweating or thirst. No cold intolerance. PHYSICAL EXAMINATION Gen: This is a 71-year-old obese male. He is resting in recliner and appears to be comfortable and in no acute distress. HEENT: Head is atraumatic, normocephalic. Pupils equal, round. Sclerae is a nicteric. NECK: Supple. No JVD. No lymphadenopathy. No thyromegaly. LUNGS: Essentially clear to auscultation. No intercostal retractions. HEART: Regular rate and rhythm. 2/6 systolic murmur at the left sternal border. ABDOMEN: Soft. Bowel sounds are present. No masses. No tenderness. EXTREMITIES: No pedal edema. No calf tenderness. NEUROLOGICAL: Patient is awake, alert and oriented x3. Cranial nerves 2 through 12 are grossly intact. ASSESSMENT AND PLAN 1. Acute on chronic systolic heart failure. Cardiology consult appreciated. Continue patient on on Lasix 40 g IV every 12 hours for another 24 hours, monitor I&O, daily weights, electrolytes and renal function. Patient has been started on Aldactone 25 mg daily, continue Entresto 4951 twice daily, Toprol-XL 50 mg daily, Farxiga 10 milligrams daily 2. Nonischemic cardio myopathy status post AICD. Stable. continue medications as in #1. 3. Hypertension. Continue Entresto twice daily. 4. Hyperlipidemia. Continue atorvastatin 20 mg daily. 5. Paroxysmal atrial fibrillation, currently in a sinus rhythm. Continue patient on amiodarone 200 mg daily, eliquis 5 mg twice daily. 6. Chronic kidney disease II. Avoid nephrotoxic agents, monitor renal function closely. 7. Valvular heart disease status post aortic valve replacement, stable. 8. GI prophylaxis. Protonix 40 mg oral daily. 9. DVT prophylaxis. Eliquis 5 mg twice daily. Patient will be admitted to the hospital for a minimum of 2 night stay. DISCHARGE PLAN Return home. Impression and plan of care have been directed as dictated by the signing physician. Svetlana Rivers nurse practitioner acting as scribe for signing physician. Objective - Vital Signs Vital signs: Vital Signs Temp 97.5 F L 07/30/22 11:25 Pulse 64 07/30/22 11:25 Resp 16 07/30/22 11:25 BP 95/60 07/30/22 11:25 Pulse Ox 100 07/30/22 11:25 FiO2 Intake & Output 07/29/22 07/30/22 07/30/22 18:59 06:59 18:59 Intake Total 330 190 Output Total 1800 Balance 330 -1800 190 Weight 103.8 kg Intake: IV 10 Invasive Line 1 10 Oral 330 180 Output: Urine 1800 Other: Voiding Method Urinal Urinal - Labs CBC & Chem 7: 07/29/22 01:51 07/30/22 11:52
--- NOTE | 2022-07-30 13:45 | P.PN ---
Subjective Progress Note Date: 07/30/22 HISTORY OF PRESENT ILLNESS: This is a 71-year-old male who follows in the office with Dr. Don. Patient has a history of nonischemic cardiomyopathy, paroxysmal atrial fibrillation, congestive heart failure, AICD implantation, chronic kidney disease, valvular heart disease with previous aortic valve replacement, hypertension, and hyperlipidemia. We have been asked to evaluate the patient for heart failure. Patient gives history that he saw Dr. Don on Friday, Lasix was increased and metolazone was added as well as Farxiga but he has not started those medications. He is complaining of shortness of breath and difficulty with breathing on exertion for the past couple weeks and worsening. He states he has chronic shortness of breath but this is much worse than his baseline. He does complain of some chest pressure. He denies having any weight gain and states he has a minimal amount of lower extremity edema. He states he is taking all his medications as directed and following on no added salt diet. He does note that is Lasix does not seem to be diuresing him as well as in the past. Patient is status post 1 dose of IV Lasix 80 mg. EKG atrial paced rhythm Chest x-ray reveals cardiomegaly, pulmonary vascular congestion and bilateral pleural effusions. WBC 7.1, hemoglobin 13.4, platelet count 109. Sodium 136, potassium 3.8, chloride 104, CO2 23, BUN 29, creatinine initially 1.88 and now at 1.59. Troponin 0.033, 0.044 and 0.029. ProBNP 3860. Home cardiac medications: Amiodarone 200 mg daily, eliquis 5 mg twice daily, Farxiga 10 mg daily, Lasix 40 mg twice daily, Toprol-XL 50 mg daily, potassium 20 mEq twice daily, Entresto 4951 milligrams 1 twice daily Echocardiogram 04/2022 revealed EF of 20-25%. Wire noted in the right ventricle, possible PFO. Bioprosthetic aortic valve not well visualized with mild aortic regurgitation and mean gradient 17 mmHg. Mild to moderate mitral regurgitation and mild tricuspid regurgitation. Biventricular ICD upgraded 04/2020 [employer] 07/30 Patient is seen today in follow up. He states he did not sleep well due to he was unable to get comortable. He slept in reclner which he does at home. Leg swelling is improved and patient has been keeping his legs elevated. Shortness of breath seems to be improving. He has ambulated in his room but not in hallway. Patient encouraged to walk in the hallway. He denies lightheadedness or dizzyness. Plan is to continue IV Lasix for another 24 hours. PHYSICAL EXAM: VITAL SIGNS: Reviewed. GENERAL: Well-developed in no acute distress. NECK: Supple. No JVD or thyromegaly LUNGS: Respirations even and unlabored. Lungs diminished. HEART: Regular rate and rhythm. S1 and S2 heard. Systolic murmur noted. EXTREMITIES: Normal range of motion. No clubbing or cyanosis. Peripheral pulses intact. No lower extremity edema ASSESSMENT: Acute on chronic heart failure with reduced ejection fraction, EF 20% History of nonischemic cardiomyopathy Paroxysmal atrial fibrillation History of AICD implantation Chronic kidney disease Valvular heart disease with previous aortic valve replacement Hypertension Hyperlipidemia Thrombocytopenia PLAN: Resume patient's home cardiac medications Continue patient on Lasix 40 mg IV every 12 hours Continue Aldactone 25 mg daily and discontinue potassium supplement Monitor I&O, daily weights, electrolytes and renal function Additional recommendations as patient progresses Thank you kindly for this consultation. Nurse practitioner note has been reviewed by physician. Signing provider agrees with the documented findings, assessment, and plan of care. Objective - Vital Signs Vital signs: Vital Signs Temp 97.5 F L 07/30/22 11:25 Pulse 64 07/30/22 11:25 Resp 16 07/30/22 11:25 BP 95/60 07/30/22 11:25 Pulse Ox 100 07/30/22 11:25 FiO2 Intake & Output 07/29/22 07/30/22 07/30/22 18:59 06:59 18:59 Intake Total 330 190 Output Total 1800 Balance 330 -1800 190 Weight 103.8 kg Intake: IV 10 Invasive Line 1 10 Oral 330 180 Output: Urine 1800 Other: Voiding Method Urinal Urinal - Labs CBC & Chem 7: 07/29/22 01:51 07/30/22 11:52
[2022-07-31] MEDS: PANTOPRAZOLE 40 MG TABLET PO SCH (06:25)
[2022-07-31 08:01] VITALS: RESP 18; TEMP 97.3
[2022-07-31] MEDS: METOPROLOL SUCCINATE (ER) 50 MG TAB.ER.24H PO SCH (08:21)
[2022-07-31] MEDS: APIXABAN 5 MG TAB PO SCH (08:21)
[2022-07-31] MEDS: DAPAGLIFLOZIN PROPANEDIOL 10 MG TABLET PO SCH (08:21)
[2022-07-31] MEDS: AMIODARONE 200 MG TAB PO SCH (08:21)
[2022-07-31] MEDS: SPIRONOLACTONE 25 MG TAB PO SCH (08:21)
[2022-07-31] MEDS: FUROSEMIDE 10 MG/ML 4 ML VIAL IV SCH (08:22)
[2022-07-31] MEDS: SACUBITRIL/VALSARTAN 49 MG-51 MG TABLET PO SCH (08:22)
[2022-07-31 08:43] LABS: HCT 45.3 % (39.0-53.0); HGB 14.7 gm/dL (13.0-17.5); MCH 31.9 pg (25.0-35.0); MCHC 32.5 g/dL (31.0-37.0); MCV 98.1 fL (80.0-100.0); Mean Platelet Volume 8.2; Platelet Count 146 k/uL (150-450); RBC 4.61 m/uL (4.30-5.90); RDW 13.3 % (11.5-15.5); WBC 9.4 k/uL (3.8-10.6)
[2022-07-31 08:51] LABS: Albumin 4.3 g/dL (3.5-5.0); Calcium 8.8 mg/dL (8.4-10.2); Potassium 3.8 mmol/L (3.5-5.1); Total Bilirubin 0.7 mg/dL (0.2-1.3); Total Protein 6.7 g/dL (6.3-8.2)
--- NOTE | 2022-07-31 08:53 | P.DS ---
Providers Date of admission: 07/30/22 09:42 Expected date of discharge: 07/31/22 Attending physician: Marjorie Marks Consults: 07/28/22 21:15 Consult Physician Urgent Consulting Provider: Vern Whitten Consult Reason/Comments: CHF Do you want consulting provider notified?: Yes Primary care physician: Marjorie Marks Hospital Course: HISTORY OF PRESENT ILLNESS This is a 71-year-old male with a history of hypertension, hyperlipidemia, nonischemic cardiomyopathy status post AICD, chronic systolic heart failure, paroxysmal atrial fibrillation on eliquis, chronic kidney disease stage II , valvular heart disease status post aortic valve replacement, remote history of tobacco use. Patient patient states he has had shortness of breath and difficulty with breathing on exertion for the past couple weeks and worsening. Patient saw Dr. Don on Friday and he may medication adjustments including increasing Lasix and adding metolazone and Farxiga but he has not started taking these medications. He has been following a no added salt diet and taking his other medications as instructed. He denies having any weight gain and has minimal amount of lower extremity edema. EKG was ventricularly paced rhythm. Chest x-ray reveals cardiomegaly, pulmonary vascular congestion and bilateral pleural effusions.WBC 7.1, hemoglobin 13.4, platelet count 109. Sodium 136, potassium 3.8, chloride 104, CO2 23, BUN 29, creatinine initially 1.88 and now at 1.59. Troponin 0.033, 0.044 and 0.029. ProBNP 3860.Recent echocardiogram performed on 04/15/2022 revealed severely impaired left ventricular systolic function EF 20-25% with global hypokinesis, wire was noted in the right ventricle possible PFO, bioprosthetic aortic valve not well visualized with mild aortic regurgitation with a mean gradient of 17 mmHg. Mild to moderate mitral regurgitation and mild tricuspid regurgitation. Patient received 1 dose of IV Lasix in the emergency center and was admitted to the cardiac stepdown unit. Patient has been seen by cardiology and his home medications have been resumed and patient started on IV Lasix 40 mg every 12 hours and Aldactone was added. 07/30: Patient states that he didn't sleep well during the night as he could not get comfortable. He slept in the recliner which apparently he does at home. Leg swelling is improved as patient has been keeping his legs elevated. Shortness of breath seems to be improving. He is continued on IV Lasix 40 mg every 12 hours. Weight is unchanged. Repeat blood work reveals improvement of renal function with a BUN 31 creatinine 1.399. Potassium 4.4. 07/31: Patient states he is feeling about the same from yesterday maybe a little bit better. He has been on IV Lasix 40 mg every 4 hours and has been diuresing. He he has a negative fluid balance. No real change in his weight however. Repeat blood work this morning is pending. Patient has been seen by cardiology and cleared for discharge. Patient denies any chest pain, lightheadedness or dizziness. Patient will be discharged home today in stable condition. DISCHARGE DIAGNOSES 1. Acute on chronic systolic heart failure. 2. Nonischemic cardio myopathy status post AICD. 3. Hypertension. 4. Hyperlipidemia. 5. Paroxysmal atrial fibrillation, currently in a paced rhythm. 6. Acute kidney injury (POA) and chronic kidney disease II. 7. Valvular heart disease status post aortic valve replacement, stable. DISCHARGE PLAN Return home. Greater than 35 minutes was utilized and coordinating patient's discharge. Impression and plan of care have been directed as dictated by the signing physician. Svetlana Rivers nurse practitioner acting as scribe for signing physician. Patient Condition at Discharge: Stable Plan - Discharge Summary Discharge Rx Participant: No New Discharge Prescriptions: New Spironolactone [Aldactone] 25 mg PO DAILY #90 tab Continue Apixaban [Eliquis] 5 mg PO BID #0 Sacubitril/Valsartan [Entresto 49 mg-51 mg Tablet] 1 tab PO BID Amiodarone [Cordarone] 200 mg PO DAILY guaiFENesin [Mucinex] 1,200 mg PO BID Prevagen 1 cap PO DAILY Furosemide [Lasix] 40 mg PO BID #60 tab Metoprolol Succinate (ER) [Toprol XL] 50 mg PO DAILY Dapagliflozin Propanediol [Farxiga] 10 mg PO DAILY Discontinued Potassium Chloride [Klor-Con M20] 20 meq PO BID 30 Days #60 tab Discharge Medication List Prevagen 1 cap PO DAILY 04/15/22 [History] Apixaban [Eliquis] 5 mg PO BID #0 04/16/22 [Rx] Furosemide [Lasix] 40 mg PO BID #60 tab 04/16/22 [Rx] Amiodarone [Cordarone] 200 mg PO DAILY 05/21/23 [History] Dapagliflozin Propanediol [Farxiga] 10 mg PO DAILY 07/28/22 [History] Metoprolol Succinate (ER) [Toprol XL] 50 mg PO DAILY 07/28/22 [History] Sacubitril/Valsartan [Entresto 49 mg-51 mg Tablet] 1 tab PO BID 07/28/22 [History] guaiFENesin [Mucinex] 1,200 mg PO BID 07/28/22 [History] Spironolactone [Aldactone] 25 mg PO DAILY #90 tab 07/31/22 [Rx] Follow up Appointment(s)/Referral(s): Marjorie Marks MD [Primary Care Provider] - 1 Week Wiley Don MD [STAFF PHYSICIAN] - 1 Week Discharge Disposition: HOME SELF-CARE
--- NOTE | 2022-07-31 08:56 | P.PN ---
Subjective Progress Note Date: 07/31/22 HISTORY OF PRESENT ILLNESS: This is a 71-year-old male who follows in the office with Dr. Don. Patient has a history of nonischemic cardiomyopathy, paroxysmal atrial fibrillation, congestive heart failure, AICD implantation, chronic kidney disease, valvular heart disease with previous aortic valve replacement, hypertension, and hyperlipidemia. We have been asked to evaluate the patient for heart failure. Patient gives history that he saw Dr. Don on Friday, Lasix was increased and metolazone was added as well as Farxiga but he has not started those medications. He is complaining of shortness of breath and difficulty with breathing on exertion for the past couple weeks and worsening. He states he has chronic shortness of breath but this is much worse than his baseline. He does complain of some chest pressure. He denies having any weight gain and states he has a minimal amount of lower extremity edema. He states he is taking all his medications as directed and following on no added salt diet. He does note that is Lasix does not seem to be diuresing him as well as in the past. Patient is status post 1 dose of IV Lasix 80 mg. EKG atrial paced rhythm Chest x-ray reveals cardiomegaly, pulmonary vascular congestion and bilateral pleural effusions. WBC 7.1, hemoglobin 13.4, platelet count 109. Sodium 136, potassium 3.8, chloride 104, CO2 23, BUN 29, creatinine initially 1.88 and now at 1.59. Troponin 0.033, 0.044 and 0.029. ProBNP 3860. Home cardiac medications: Amiodarone 200 mg daily, eliquis 5 mg twice daily, Farxiga 10 mg daily, Lasix 40 mg twice daily, Toprol-XL 50 mg daily, potassium 20 mEq twice daily, Entresto 4951 milligrams 1 twice daily Echocardiogram 04/2022 revealed EF of 20-25%. Wire noted in the right ventricle, possible PFO. Bioprosthetic aortic valve not well visualized with mild aortic regurgitation and mean gradient 17 mmHg. Mild to moderate mitral regurgitation and mild tricuspid regurgitation. Biventricular ICD upgraded 04/2020 [employer] 07/30 Patient is seen today in follow up. He states he did not sleep well due to he was unable to get comortable. He slept in reclner which he does at home. Leg swelling is improved and patient has been keeping his legs elevated. Shortness of breath seems to be improving. He has ambulated in his room but not in hallway. Patient encouraged to walk in the hallway. He denies lightheadedness or dizzyness. Plan is to continue IV Lasix for another 24 hours. 07/31 Patient is seen in follow-up today. Patient states he is feeling about the same from yesterday maybe a little bit better. He has been on IV Lasix 40 mg every 4 hours and has been diuresing. He he has a negative fluid balance. No real change in his weight however. WBC 9.4, hemoglobin is 14.7 platelet count 146. Electrolytes are normal including a potassium of 3.8, BUN 33 and creatinine 1.53. Patient denies any chest pain, lightheadedness or dizziness. PHYSICAL EXAM: VITAL SIGNS: Reviewed. GENERAL: Well-developed in no acute distress. NECK: Supple. No JVD or thyromegaly LUNGS: Respirations even and unlabored. Lungs diminished. HEART: Regular rate and rhythm. S1 and S2 heard. Systolic murmur noted. EXTREMITIES: Normal range of motion. No clubbing or cyanosis. Peripheral pulses intact. No lower extremity edema ASSESSMENT: Acute on chronic heart failure with reduced ejection fraction, EF 20% History of nonischemic cardiomyopathy Paroxysmal atrial fibrillation History of AICD implantation Chronic kidney disease Valvular heart disease with previous aortic valve replacement Hypertension Hyperlipidemia Thrombocytopenia PLAN: Resume patient's home cardiac medications Continue patient on Lasix 40 mg IV every 12 hours and transition to oral Continue Aldactone 25 mg daily and discontinue potassium supplement Monitor I&O, daily weights, electrolytes and renal function Patient is cleared from cardiology for discharge home. Patient follow with Dr. Don in 1-2 weeks. Nurse practitioner note has been reviewed by physician. Signing provider agrees with the documented findings, assessment, and plan of care. Objective - Vital Signs Vital signs: Vital Signs Temp 97.7 F 07/31/22 04:00 Pulse 67 07/31/22 04:00 Resp 19 07/31/22 04:00 BP 107/73 07/31/22 04:00 Pulse Ox 97 07/31/22 04:00 FiO2 Intake & Output 07/30/22 07/31/22 07/31/22 18:59 06:59 18:59 Intake Total 190 120 Output Total 775 Balance -585 120 Weight 102.7 kg Intake: IV 10 Invasive Line 1 10 Oral 180 120 Output: Urine 775 Other: Voiding Method Urinal Urinal # Voids 1 - Labs CBC & Chem 7: 07/31/22 07:41 07/31/22 07:41 Labs: Abnormal Lab Results - Last 24 Hours (Table) 07/30/22 Range/Units 11:52 Sodium 136 L (137-145) mmol/L BUN 31 H (9-20) mg/dL Creatinine 1.39 H (0.66-1.25) mg/dL Glucose 106 H (74-99) mg/dL
[2022-07-31 12:27] VITALS: BP 97/63; PULSE 69
== END 2022-07-31 14:03 | disposition home or self-care (01) | DRG 291 ==
LOC: EC 18:35 → 3SCARD 21:15 → OBSVTOIN 07-30 09:42
PROVIDERS: ADMIT Internal Medicine; ATTEND Internal Medicine
DX: I13.0 Hypertensive heart and chronic kidney disease with heart failure and stage 1 through stage 4 chronic kidney disease, or unspecified chronic kidney disease (principal); I50.23 Acute on chronic systolic (congestive) heart failure; N17.9 Acute kidney failure, unspecified; I42.8 Other cardiomyopathies; E78.5 Hyperlipidemia, unspecified; E11.22 Type 2 diabetes mellitus with diabetic chronic kidney disease; D69.6 Thrombocytopenia, unspecified; I08.3 Combined rheumatic disorders of mitral, aortic and tricuspid valves; I48.0 Paroxysmal atrial fibrillation; N18.2 Chronic kidney disease, stage 2 (mild); Z79.01 Long term (current) use of anticoagulants; Z79.84 Long term (current) use of oral hypoglycemic drugs; Z79.899 Other long term (current) drug therapy; Z82.49 Family history of ischemic heart disease and other diseases of the circulatory system; Z95.810 Presence of automatic (implantable) cardiac defibrillator; Z96.643 Presence of artificial hip joint, bilateral; Z98.42 Cataract extraction status, left eye; Z96.1 Presence of intraocular lens; Z95.3 Presence of xenogenic heart valve
CPT/HCPCS: 36415; 71045; 80048; 80053; 83880; 84484; 85025; 85027; 85610; 85730; 93005; 94760; 96374; 99285

== ENCOUNTER → 2022-09-17 | Outpatient (CLI) | payer MEDICARE ==
[2022-09-17 17:50] LABS: ALT 25 U/L (10-49); AST 36 U/L (14-35); Albumin 4.5 d/dL (3.8-4.9); Albumin/Globulin Ratio 1.96 Ratio (1.60-3.17); Alkaline Phosphatase 67 U/L (41-126); BUN/Creat Ratio 16.75 Ratio (12.00-20.00); Blood Urea Nitrogen 26.8 mg/dL (9.0-27.0); Calcium 9.5 mg/dL (8.7-10.3); Carbon Dioxide 30.2 mmol/L (21.6-31.8); Chloride 91 mmol/L (96-109); Globulin 2.3 d/dL (1.6-3.3); Glucose 113 mg/dL (70-110); LDL Cholesterol,Calculated 122.3 mg/dL (0.0-131.0); Potassium 3.2 mmol/L (3.5-5.5); Sodium 137 mmol/L (135-145); Total Bilirubin 0.7 mg/dL (0.3-1.2); Total Protein 6.8 d/dL (6.2-8.2); VLDL Calculation 16.34 mg/dL (5.00-40.00)
== END | disposition home or self-care (01) ==
LOC: LABWHC1 07:41
PROVIDERS: ATTEND Internal Medicine Interventional Cardiology
DX: E78.2 Mixed hyperlipidemia (principal)
CPT/HCPCS: 36415; 80053; 80061

== ENCOUNTER → 2022-12-30 | Outpatient (CLI) | payer MEDICARE, OTHER ==
[2022-12-30 08:46] LABS: African American GFR (CKD) 49 (>60 ml/min/1.73 sqM); Blood Urea Nitrogen 38 mg/dL (9-20); Non-African American GFR(CKD) 43 (>60 ml/min/1.73 sqM)
--- NOTE | 2022-12-30 09:33 | CT ---
EXAMINATION TYPE: CT chest wo con CT DLP: 570.10 mGycm, Automated exposure control for dose reduction was used. DATE OF EXAM: 12/30/2022 9:27 AM COMPARISON: PET/CT 06/28/2022, CTA chest 04/15/2022, CT chest 02/01/2022 CLINICAL INDICATION:Male, 72 years old with history of R91.1 LUNG NODULE; PHH, Lung nodule. TECHNIQUE: Multiple axial images were obtained through the chest without IV contrast. Lack of IV or o ral contrast limits evaluation of solid and hollow organ viscera. . Coronal and sagittal reformats re viewed. FINDINGS: LUNGS/ PLEURA: No pleural effusion, pneumothorax, focal consolidation. No suspicious pulmonary nodule or mass. AIRWAY: Patent and unremarkable.. HEART: The heart is mildly increased in size.. No pericardial effusion. Aortic valvular calcification s. Mild coronary aortic calcifications. MEDIASTINUM: No evidence of adenopathy. 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 Ectasia of t he ascending thoracic aorta measuring up to 3.9 cm. Left chest wall 3 lead cardiac pacemaking device. Atherosclerotic calcification of the aorta and its branches. MUSCULOSKELETAL: No acute osseous abnormalities. Midline sternotomy wires. No aggressive osseous lesi on. Chronic compression deformity of the L1 and L2 vertebral bodies. Findings compatible with DISH. SOFT TISSUES/LYMPH NODES: Unremarkable. LOWER NECK: No significant findings. UPPER ABDOMEN: Small hiatal hernia. Colonic diverticulosis. Periampullary duodenal diverticulum. IMPRESSION: 1. No acute thoracic process. 2. No suspicious pulmonary nodule or mass. 3. Similar aneurysmal dilatation the aortic root measuring up to 4.0 cm with prosthetic valve. Ectasi a of the ascending thoracic aorta measuring up to 3.9 cm. 4. Cardiomegaly.
== END | disposition home or self-care (01) ==
LOC: RADCTMAIN 07:58
PROVIDERS: ATTEND Internal Medicine Critical Care Medicine
DX: I77.810 Thoracic aortic ectasia (principal); R91.1 Solitary pulmonary nodule; I51.7 Cardiomegaly
CPT/HCPCS: 36415; 71250; 82565; 84520

== ENCOUNTER → 2023-02-18 | Outpatient (CLI) | payer MEDICARE, OTHER ==
[2023-02-18 08:53] LABS: NT-Pro-B-Type Natriuretic Pept 4850 pg/mL
[2023-02-18 15:59] LABS: ALT 21 U/L (10-49); AST 28 U/L (14-35); Albumin 4.7 g/dL (3.8-4.9); Albumin/Globulin Ratio 2.35 Ratio (1.60-3.17); Alkaline Phosphatase 62 U/L (41-126); BUN/Creat Ratio 28.74 Ratio (12.00-20.00); Blood Urea Nitrogen 54.6 mg/dL (9.0-27.0); Calcium 10.4 mg/dL (8.7-10.3); Carbon Dioxide 29.3 mmol/L (21.6-31.8); Chloride 96 mmol/L (96-109); Chol/HDL Ratio 2.73 Ratio; Glucose 119 mg/dL (70-110); LDL Cholesterol,Calculated 104.5 mg/dL (0.0-131.0); Sodium 141 mmol/L (135-145); T4, Free (Free Thyroxine) 1.31 ng/dL (0.80-1.80); Total Bilirubin 0.5 mg/dL (0.3-1.2); Total Protein 6.7 g/dL (6.2-8.2); VLDL Calculation 17.14 mg/dL (5.00-40.00)
== END | disposition home or self-care (01) ==
LOC: LABWHC1 06:50
PROVIDERS: ATTEND Internal Medicine Interventional Cardiology
DX: I42.8 Other cardiomyopathies (principal); I48.11 Longstanding persistent atrial fibrillation; I50.22 Chronic systolic (congestive) heart failure; E78.2 Mixed hyperlipidemia
CPT/HCPCS: 36415; 80053; 80061; 83880; 84439; 84443

== ENCOUNTER → 2023-03-11 | Outpatient (CLI) | payer BC ==
[2023-03-11 08:11] LABS: ALT 18 U/L (4-49); AST 29 U/L (17-59); African American GFR (CKD) 55 (>60 ml/min/1.73 sqM); Albumin/Globulin Ratio 1.7; Alkaline Phosphatase 63 U/L (38-126); Anion Gap 10 mmol/L; Blood Urea Nitrogen 35 mg/dL (9-20); Carbon Dioxide 28 mmol/L (22-30); Chloride 98 mmol/L (98-107); Globulin 2.4 g/dL; Glucose 113 mg/dL (74-99); Non-African American GFR(CKD) 48 (>60 ml/min/1.73 sqM); Potassium 4.3 mmol/L (3.5-5.1); Sodium 136 mmol/L (137-145); Total Bilirubin 0.8 mg/dL (0.2-1.3); Total Protein 6.4 g/dL (6.3-8.2)
[2023-03-11 08:19] LABS: NT-Pro-B-Type Natriuretic Pept 4010 pg/mL
== END | disposition home or self-care (01) ==
LOC: LABWHC1 07:33
PROVIDERS: ATTEND Internal Medicine Cardiovascular Disease
DX: I35.0 Nonrheumatic aortic (valve) stenosis (principal); I50.20 Unspecified systolic (congestive) heart failure
CPT/HCPCS: 36415; 80053; 83880

== ENCOUNTER → 2023-03-21 | Outpatient (CLI) | payer MEDICARE, OTHER ==
[2023-03-21 09:16] LABS: African American GFR (CKD) 38 (>60 ml/min/1.73 sqM); Anion Gap 11 mmol/L; Blood Urea Nitrogen 62 mg/dL (9-20); Calcium 9.2 mg/dL (8.4-10.2); Carbon Dioxide 34 mmol/L (22-30); Chloride 91 mmol/L (98-107); Glucose 115 mg/dL (74-99); Non-African American GFR(CKD) 33 (>60 ml/min/1.73 sqM); Potassium 3.8 mmol/L (3.5-5.1); Sodium 136 mmol/L (137-145)
[2023-03-21 09:23] LABS: NT-Pro-B-Type Natriuretic Pept 4030 pg/mL
--- NOTE | 2023-03-22 19:14 | US ---
EXAMINATION TYPE: US thyroid st tissue head/neck DATE OF EXAM: 03/21/2023 COMPARISON: NONE CLINICAL INDICATION: Male, 72 years old with history of R79.89 ABN FINDING OF BLOOD; Patient denies a ny signa or symptoms GLAND SIZE: Right Lobe: 3.7 x 2.3 x 2.0 cm Overall Parenchyma: homogeneous Left Lobe: 4.2 x 2.3 x 1.8 cm Overall Parenchyma: homogeneous Isthmus Thickness: 0.5 cm NODULES RIGHT: # of nodules measured on right: 0 LEFT: # of nodules measured on left: 0 ISTHMUS: # of nodules measured in the isthmus: 0 Bilateral neck scanned, lymph nodes noted bilaterally Difficult exam - low lying thyroid IMPRESSION: 1. No suspicious nodules within the thyroid as visualized.
== END | disposition home or self-care (01) ==
LOC: RADUSWWP 08:14
PROVIDERS: ATTEND Internal Medicine
DX: R79.89 Other specified abnormal findings of blood chemistry (principal); I50.20 Unspecified systolic (congestive) heart failure
CPT/HCPCS: 36415; 76536; 80048; 83880

== ENCOUNTER → 2023-03-24 | Outpatient (CLI) | payer MEDICARE ==
[2023-03-24 10:50] LABS: NT-Pro-B-Type Natriuretic Pept 4850 pg/mL
[2023-03-24 10:58] LABS: African American GFR (CKD) 45 (>60 ml/min/1.73 sqM); Anion Gap 9 mmol/L; Blood Urea Nitrogen 48 mg/dL (9-20); Calcium 9.5 mg/dL (8.4-10.2); Carbon Dioxide 31 mmol/L (22-30); Chloride 101 mmol/L (98-107); Glucose 105 mg/dL (74-99); Non-African American GFR(CKD) 39 (>60 ml/min/1.73 sqM); Potassium 3.8 mmol/L (3.5-5.1); Sodium 141 mmol/L (137-145)
== END | disposition home or self-care (01) ==
LOC: LABWHC1 08:36
PROVIDERS: ATTEND Internal Medicine Cardiovascular Disease
DX: I50.20 Unspecified systolic (congestive) heart failure (principal); I42.8 Other cardiomyopathies; I51.9 Heart disease, unspecified
CPT/HCPCS: 36415; 80048; 83880

== ENCOUNTER → 2023-04-01 | Outpatient (CLI) | payer MEDICARE ==
[2023-04-01 09:19] LABS: African American GFR (CKD) 51 (>60 ml/min/1.73 sqM); Anion Gap 6 mmol/L; Blood Urea Nitrogen 32 mg/dL (9-20); Calcium 9.6 mg/dL (8.4-10.2); Carbon Dioxide 27 mmol/L (22-30); Chloride 107 mmol/L (98-107); Glucose 112 mg/dL (74-99); NT-Pro-B-Type Natriuretic Pept 8420 pg/mL; Non-African American GFR(CKD) 44 (>60 ml/min/1.73 sqM); Potassium 5.1 mmol/L (3.5-5.1); Sodium 140 mmol/L (137-145)
== END | disposition home or self-care (01) ==
LOC: LABWHC1 08:16
PROVIDERS: ATTEND Internal Medicine Cardiovascular Disease
DX: I50.20 Unspecified systolic (congestive) heart failure (principal); I42.8 Other cardiomyopathies; I51.9 Heart disease, unspecified
CPT/HCPCS: 36415; 80048; 83880

== ENCOUNTER → 2023-04-07 | Outpatient (CLI) | payer MEDICARE ==
[2023-04-07 10:05] LABS: African American GFR (CKD) 38 (>60 ml/min/1.73 sqM); Anion Gap 6 mmol/L; Blood Urea Nitrogen 47 mg/dL (9-20); Calcium 9.4 mg/dL (8.4-10.2); Carbon Dioxide 30 mmol/L (22-30); Chloride 102 mmol/L (98-107); Glucose 102 mg/dL (74-99); Non-African American GFR(CKD) 33 (>60 ml/min/1.73 sqM); Potassium 4.7 mmol/L (3.5-5.1); Sodium 138 mmol/L (137-145)
[2023-04-07 10:13] LABS: NT-Pro-B-Type Natriuretic Pept 4230 pg/mL
== END | disposition home or self-care (01) ==
LOC: LABWHC1 08:25
PROVIDERS: ATTEND Internal Medicine Cardiovascular Disease
DX: I50.20 Unspecified systolic (congestive) heart failure (principal); I35.0 Nonrheumatic aortic (valve) stenosis
CPT/HCPCS: 36415; 80048; 83880

== ENCOUNTER → 2023-04-15 | Outpatient (CLI) | payer MEDICARE ==
[2023-04-15 09:40] LABS: African American GFR (CKD) 47 (>60 ml/min/1.73 sqM); Anion Gap 8 mmol/L; Blood Urea Nitrogen 45 mg/dL (9-20); Calcium 9.7 mg/dL (8.4-10.2); Carbon Dioxide 30 mmol/L (22-30); Chloride 102 mmol/L (98-107); Glucose 109 mg/dL (74-99); Non-African American GFR(CKD) 41 (>60 ml/min/1.73 sqM); Potassium 4.3 mmol/L (3.5-5.1); Sodium 140 mmol/L (137-145)
[2023-04-15 09:48] LABS: NT-Pro-B-Type Natriuretic Pept 3830 pg/mL
== END | disposition home or self-care (01) ==
LOC: LABWHC1 08:03
PROVIDERS: ATTEND Internal Medicine Cardiovascular Disease
DX: I50.20 Unspecified systolic (congestive) heart failure (principal); I42.8 Other cardiomyopathies; I51.9 Heart disease, unspecified
CPT/HCPCS: 36415; 80048; 83880

== ENCOUNTER → 2023-05-14 | Outpatient (CLI) | payer MEDICARE ==
[2023-05-14 08:47] LABS: INR 1.1 (<1.2)
[2023-05-14 08:48] LABS: Prothrombin Time 11.8 sec (10.0-12.5)
[2023-05-14 08:49] LABS: HCT 42.7 % (39.0-53.0); HGB 14.6 gm/dL (13.0-17.5); MCH 34.4 pg (25.0-35.0); MCHC 34.1 g/dL (31.0-37.0); MCV 100.8 fL (80.0-100.0); Mean Platelet Volume 7.2; Platelet Count 251 k/uL (150-450); RBC 4.24 m/uL (4.30-5.90); RDW 12.8 % (11.5-15.5); WBC 7.3 k/uL (3.8-10.6)
[2023-05-14 08:53] LABS: ALT 19 U/L (4-49); AST 28 U/L (17-59); African American GFR (CKD) 57 (>60 ml/min/1.73 sqM); Albumin 4.1 g/dL (3.5-5.0); Albumin/Globulin Ratio 1.7; Alkaline Phosphatase 67 U/L (38-126); Anion Gap 6 mmol/L; Blood Urea Nitrogen 27 mg/dL (9-20); Calcium 9.4 mg/dL (8.4-10.2); Carbon Dioxide 32 mmol/L (22-30); Chloride 100 mmol/L (98-107); Globulin 2.4 g/dL; Glucose 101 mg/dL (74-99); Non-African American GFR(CKD) 50 (>60 ml/min/1.73 sqM); Potassium 4.2 mmol/L (3.5-5.1); Sodium 138 mmol/L (137-145); Total Bilirubin 0.9 mg/dL (0.2-1.3); Total Protein 6.5 g/dL (6.3-8.2)
[2023-05-14 09:01] LABS: NT-Pro-B-Type Natriuretic Pept 3120 pg/mL
[2023-05-14 10:50] LABS: Eosinophils # (M) 0.15 k/uL (0-0.7); Lymphocytes # (M) 1.97 k/uL (1.0-4.8); Monocytes # (M) 0.88 k/uL (0-1.0); Neutrophils # (M) 4.31 k/uL (1.3-7.7); Neutrophils % (M) 59 %; Nucleated Red Blood Cells 0 /100 WBC (0-0); Total Cells Counted 100
== END | disposition home or self-care (01) ==
LOC: LABWHC1 07:53
PROVIDERS: ATTEND Internal Medicine
DX: Z01.810 Encounter for preprocedural cardiovascular examination (principal); I42.8 Other cardiomyopathies; I51.9 Heart disease, unspecified; I50.20 Unspecified systolic (congestive) heart failure
CPT/HCPCS: 36415; 80053; 83880; 85025; 85610

== ENCOUNTER → 2023-06-09 | Outpatient (CLI) | payer MEDICARE ==
[2023-06-10 02:41] LABS: BUN/Creat Ratio 24.22 Ratio (12.00-20.00); Blood Urea Nitrogen 43.6 mg/dL (9.0-27.0); Calcium 9.2 mg/dL (8.7-10.3); Carbon Dioxide 26.7 mmol/L (21.6-31.8); Chloride 98 mmol/L (96-109); Glucose 91 mg/dL (70-110); Potassium 4.6 mmol/L (3.5-5.5); Sodium 139 mmol/L (135-145)
[2023-06-10 03:01] LABS: NT-Pro-B-Type Natriuretic Pept 5533 pg/mL (0-125)
== END | disposition home or self-care (01) ==
LOC: LABWHC1 15:28
PROVIDERS: ATTEND Internal Medicine Cardiovascular Disease
DX: I50.20 Unspecified systolic (congestive) heart failure (principal); I42.8 Other cardiomyopathies; I51.9 Heart disease, unspecified
CPT/HCPCS: 36415; 80048; 83880

== ENCOUNTER → 2023-06-23 | Outpatient (CLI) | payer MEDICARE ==
[2023-06-23 11:46] LABS: Calcium 9.1 mg/dL (8.7-10.3); Carbon Dioxide 28.4 mmol/L (21.6-31.8); Chloride 100 mmol/L (96-109); Glucose 67 mg/dL (70-110); Potassium 5.2 mmol/L (3.5-5.5); Sodium 141 mmol/L (135-145)
[2023-06-23 12:39] LABS: NT-Pro-B-Type Natriuretic Pept 3837 pg/mL (0-125)
== END | disposition home or self-care (01) ==
LOC: LABWHC1 08:21
PROVIDERS: ATTEND Internal Medicine Cardiovascular Disease
DX: I50.20 Unspecified systolic (congestive) heart failure (principal); I42.8 Other cardiomyopathies; I51.9 Heart disease, unspecified
CPT/HCPCS: 36415; 80048; 83880

== ENCOUNTER → 2023-08-13 | Outpatient (CLI) | payer MEDICARE ==
[2023-08-13 09:36] LABS: African American GFR (CKD) 39 (>60 ml/min/1.73 sqM); Anion Gap 6 mmol/L; Blood Urea Nitrogen 54 mg/dL (9-20); Calcium 9.1 mg/dL (8.4-10.2); Carbon Dioxide 31 mmol/L (22-30); Chloride 101 mmol/L (98-107); Glucose 108 mg/dL (74-99); Non-African American GFR(CKD) 34 (>60 ml/min/1.73 sqM); Potassium 3.8 mmol/L (3.5-5.1); Sodium 138 mmol/L (137-145)
[2023-08-13 09:44] LABS: NT-Pro-B-Type Natriuretic Pept 2230 pg/mL
--- NOTE | 2023-08-13 18:15 | XR ---
EXAMINATION TYPE: XR chest 2V DATE OF EXAM: 08/13/2023 COMPARISON: 07/28/2022 HISTORY: 72-year-old male CHF, history of TAVR. Z95.2, I50.9 S/P TAVR, CONGESTIVE HEART FAILURE TECHNIQUE: Frontal and lateral views FINDINGS: Left anterior chest wall ICD generator with right atrial, right ventricular, and coronary sinus leads . Median sternotomy wires are present. Mild cardiomegaly. Hazy lower lung densities relating to overl cameron soft tissue. Endovascular aortic valve replacement. No consolidation or pleural effusion. IMPRESSION: Mild cardiomegaly, previous median sternotomy, and endovascular aortic valve replacement. 3-lead AICD generator. No definite acute process.
== END | disposition home or self-care (01) ==
LOC: LABWHC1 08:47
PROVIDERS: ATTEND Internal Medicine Cardiovascular Disease
DX: I50.9 Heart failure, unspecified (principal); Z95.2 Presence of prosthetic heart valve; Z95.810 Presence of automatic (implantable) cardiac defibrillator
CPT/HCPCS: 36415; 71046; 80048; 83880

== ENCOUNTER → 2023-11-25 | Outpatient (CLI) | payer MEDICARE ==
[2023-11-25 11:03] LABS: NT-Pro-B-Type Natriuretic Pept 2726 pg/mL (0-125)
[2023-11-25 11:12] LABS: ALT 22 U/L (10-49); AST 26 U/L (14-35); Albumin 4.6 g/dL (3.8-4.9); Alkaline Phosphatase 57 U/L (41-126); Blood Urea Nitrogen 36.3 mg/dL (9.0-27.0); Calcium 9.2 mg/dL (8.7-10.3); Carbon Dioxide 28.1 mmol/L (21.6-31.8); Chloride 97 mmol/L (96-109); Globulin 2.3 g/dL (1.6-3.3); Glucose 116 mg/dL (70-110); Potassium 4.1 mmol/L (3.5-5.5); Sodium 137 mmol/L (135-145); Total Bilirubin 0.4 mg/dL (0.3-1.2); Total Protein 6.9 g/dL (6.2-8.2)
== END | disposition home or self-care (01) ==
LOC: LABWHC1 07:48
PROVIDERS: ATTEND Internal Medicine Interventional Cardiology
DX: I42.8 Other cardiomyopathies (principal)
CPT/HCPCS: 36415; 80053; 83880

== ENCOUNTER → 2023-12-10 | Outpatient (CLI) | payer MEDICARE ==
--- NOTE | 2023-12-10 09:38 | US ---
EXAMINATION TYPE: US thyroid st tissue head/neck DATE OF EXAM: 12/10/2023 COMPARISON: 03/21/23 CLINICAL INDICATION: Male, 73 years old with history of R79.89 ELEVATED TSH; elevated TSH TECHNIQUE: Grayscale and color Doppler imaging of the thyroid gland. GLAND SIZE: Right Lobe: 3.9 x 1.7 x 1.3 cm Overall Parenchyma: Mildly heterogenous Left Lobe: 3.6 x 1.5 x 1.9 cm Overall Parenchyma: Mildly heterogenous Isthmus Thickness: 0.5 cm NODULES RIGHT: # of nodules measured on right: 0 LEFT: # of nodules measured on left: 0 ISTHMUS: # of nodules measured in the isthmus: 0 Bilateral neck scanned, no evidence of lymphadenopathy. IMPRESSION: No thyroid nodules. Mild heterogenous thyroid gland and clivus are markers. [facility], , 12/10/2023 9:35 AM
== END | disposition home or self-care (01) ==
LOC: RADUSWWP 07:32
PROVIDERS: ATTEND Internal Medicine
DX: R79.89 Other specified abnormal findings of blood chemistry (principal)
CPT/HCPCS: 76536

== ENCOUNTER → 2023-12-10 | Outpatient (CLI) | payer MEDICARE ==
--- NOTE | 2023-12-10 16:58 | CT ---
EXAMINATION TYPE: CT brain wo con CT DLP: 1098.8 mGycm, Automated exposure control for dose reduction was used. DATE OF EXAM: 12/10/2023 4:29 PM COMPARISON: 06/28/2022. CLINICAL INDICATION: Male, 73 years old with history of S09.90XA UNSPECIFIED INJURY OF HEAD, INITIAL ENCOU, Injury to head after fall 3 days ago, c/o headache. TECHNIQUE: Brain: Axial CT images of the brain were obtained with coronal and sagittal reformats created and rev iewed. Contrast used: None. Oral contrast used: None. FINDINGS: Brain: Extra-axial spaces: No abnormal extra-axial fluid collections. Ventricular system: Within normal limits Cerebral parenchyma: Small focus of henry-white matter differentiation loss right posterior frontal lo be series 3 image 48 No acute intraparenchymal hemorrhage or mass effect. The henry-white junction is well differentiated. Cerebellum: Unremarkable. Mass effect: No evidence of midline shift. Intracranial vasculature: Atherosclerotic calcifications of the intracranial vessels. Soft tissues: Normal. Calvarium/osseous structures: No depressed skull fracture. Paranasal sinuses and mastoid air cells: Mild scattered paranasal sinus disease. Visualized orbits: Bilateral aphakia IMPRESSION" 1. No acute intracranial process. 2. Small area of greater with weight loss matter differentiation the right posterior frontal lobe to be further evaluated with MRI with IV contrast. [facility], , 12/10/2023 4:55 PM [facility], , 12/10/2023 4:56 PM
== END | disposition home or self-care (01) ==
LOC: RADCTMAIN 16:06
PROVIDERS: ATTEND Family Medicine
DX: S09.90XA Unspecified injury of head, initial encounter
CPT/HCPCS: 70450

== ENCOUNTER 2023-12-17 08:13 | Day surgery (SDC) | payer MEDICARE ==
[2023-12-16 11:55] VITALS: BMI 29.4
[~2023-12-17 08:13] MED LIST changes: -BAMLANIVIMAB (EUA) 700 MG, ETESEVIMAB (EUA) 1,400 MG in SODIUM CHLORIDE 0.9% 50 ML IVPB NR; +LIDOCAINE 1% (10MG/ML) FOR IV START INTRADERMA PRN; -SODIUM CHLORIDE 0.9% 50 ML IVPB NR; -SODIUM CHLORIDE 0.9% 500 ML 500 ML in EMPTY BAG 1 BAG IV PRN
[2023-12-17 08:31] VITALS: TEMP 97
[2023-12-17] MEDS: LACTATED RINGERS 1,000 ML IV SCH (08:45)
[2023-12-17] MEDS: IV FLUID CONTINUATION 1,000 ML IV ONE (08:45)
[2023-12-17] MEDS ORDERED: PROPOFOL 10 MG/ML 20 ML VIAL IV ONE (09:47)
--- NOTE | 2023-12-17 10:03 | P.PCN ---
Date of Procedure: 12/17/23 Procedure(s) Performed: BRIEF HISTORY: Patient is a 73-year-old pleasant white male scheduled for an elective colonoscopy as a part of screening for colon cancer. PROCEDURE PERFORMED: Colonoscopy with snare polypectomy. PREOPERATIVE DIAGNOSIS: Screening for colon cancer. IV sedation per Anesthesia. PROCEDURE: After informed consent was obtained, the patient, was brought into the endoscopy unit. IV sedation was administered by Anesthesia under continuous monitoring. Digital rectal examination was normal. Initially the Olympus CF-160 flexible video colonoscope was then inserted in the rectum, gradually advanced into the cecum without any difficulty. Careful examination was performed as the scope was gradually being withdrawn. Ileocecal valve and the appendiceal orifice were visualized and appeared normal. Prep was excellent. Mucosa of the cecum had 2 small polyps measuring 3 mm in size removed by cold snare polypectomy. He descending colon there was a 1 cm polyp removed by snare polypectomy. In the sigmoid colon there is a 5 mm polyp removed by snare polypectomy. Rest of the, ascending colon, transverse colon, descending colon, sigmoid colon, and rectum appeared normal. Scattered sigmoid diverticulosis. Retroflexion was performed in the rectum and no lesions were seen. The patient tolerated the procedure well. IMPRESSION: 3 mm x 2 cecal polyp status post cold snare polypectomy 1 cm ascending colon polyp status post snare polypectomy Scattered sigmoid diverticulosis 5 mm sigmoid colon polyp status post polypectomy RECOMMENDATIONS: Findings of this examination were discussed with the patient as well as his family. He was advised to follow-up with the biopsy results. If the biopsy reveals adenoma she can have repeat colonoscopy in 3 years.
[2023-12-17 10:52] VITALS: BP 110/71; PULSE 71; RESP 16
== END 2023-12-17 10:59 | disposition home or self-care (01) ==
LOC: ORWHC2ENDO 08:13
PROVIDERS: ATTEND Internal Medicine Gastroenterology
DX: Z12.11 Encounter for screening for malignant neoplasm of colon
CPT/HCPCS: 45385; 88305

== ENCOUNTER → 2024-01-13 | Outpatient (CLI) | payer MEDICARE ==
[2024-01-13 15:49] LABS: Blood Urea Nitrogen 33.6 mg/dL (9.0-27.0); Calcium 9.7 mg/dL (8.7-10.3); Chloride 100 mmol/L (96-109); Glucose 109 mg/dL (70-110); Potassium 4.2 mmol/L (3.5-5.5); Sodium 140 mmol/L (135-145)
[2024-01-13 23:16] LABS: NT-Pro-B-Type Natriuretic Pept 5031 pg/mL (0-125)
== END | disposition home or self-care (01) ==
LOC: LABWHC1 07:59
PROVIDERS: ATTEND Internal Medicine Cardiovascular Disease
DX: I50.20 Unspecified systolic (congestive) heart failure (principal); I42.8 Other cardiomyopathies
CPT/HCPCS: 36415; 80048; 83880

== ENCOUNTER → 2024-01-29 | Outpatient (CLI) | payer MEDICARE ==
[2024-01-29 17:26] LABS: ALT 21 U/L (10-49); AST 26 U/L (14-35); Albumin 4.4 g/dL (3.8-4.9); Albumin/Globulin Ratio 1.83 Ratio (1.60-3.17); Alkaline Phosphatase 75 U/L (41-126); BUN/Creat Ratio 21.23 Ratio (12.00-20.00); Blood Urea Nitrogen 46.7 mg/dL (9.0-27.0); Calcium 9.8 mg/dL (8.7-10.3); Carbon Dioxide 26.5 mmol/L (21.6-31.8); Chloride 90 mmol/L (96-109); Globulin 2.4 g/dL (1.6-3.3); Glucose 114 mg/dL (70-110); Potassium 3.9 mmol/L (3.5-5.5); Sodium 133 mmol/L (135-145); Total Bilirubin 0.7 mg/dL (0.3-1.2); Total Protein 6.8 g/dL (6.2-8.2)
[2024-01-29 18:55] LABS: NT-Pro-B-Type Natriuretic Pept 2904 pg/mL (0-125)
== END | disposition home or self-care (01) ==
LOC: LABWHC1 09:53
PROVIDERS: ATTEND Internal Medicine Cardiovascular Disease
DX: I50.9 Heart failure, unspecified (principal); Z79.899 Other long term (current) drug therapy
CPT/HCPCS: 36415; 80053; 83880; 84439; 84443

== ENCOUNTER → 2024-02-09 | Outpatient (CLI) | payer MEDICARE ==
--- NOTE | 2024-02-09 11:54 | CT ---
EXAMINATION TYPE: CT brain wo con DATE OF EXAM: 02/09/2024 COMPARISON: December 10, 2023 CLINICAL INDICATION: Male, 73 years old with history of R55 syncope; PHH, Syncope several times +LOC TECHNIQUE: CT scan of the head is performed without contrast. CT DLP: 1164.[address] CTDI: mGy Automated exposure control for dose reduction was used. FINDINGS: There is no acute intracranial hemorrhage or midline shift identified. There is diffuse v entricular and sulcal prominence consistent with diffuse age-related cerebral atrophy. There is low- attenuation in the periventricular white matter consistent with chronic small vessel ischemic change. The globes are intact and the visualized sinuses are clear. IMPRESSION: No acute intracranial hemorrhage or midline shift. There is diffuse age-related cerebra l atrophy and chronic small vessel ischemic change noted. [facility], , 02/09/2024 11:51 AM
== END | disposition home or self-care (01) ==
LOC: RADCTMAIN 07:47
PROVIDERS: ATTEND Internal Medicine Interventional Cardiology
DX: R55 Syncope and collapse (principal); I67.82 Cerebral ischemia; G31.89 Other specified degenerative diseases of nervous system
CPT/HCPCS: 70450

== ENCOUNTER → 2024-02-13 | Outpatient (CLI) | payer MEDICARE ==
[2024-02-13 15:44] LABS: Basophils # (A) 0.04 X 10*3/uL (0.00-0.10); Basophils % (A) 0.4 %; Eosinophils # (A) 0.09 X 10*3/uL (0.04-0.35); Eosinophils % (A) 0.9 %; HCT 43.9 % (39.6-50.0); HGB 15.2 g/dL (13.0-17.0); Lymphocytes # (A) 2.61 X 10*3/uL (0.90-5.00); Lymphocytes % (A) 25.3 %; MCHC 34.6 g/dL (32.0-37.0); MCV 98.2 FL (80.0-97.0); Mean Platelet Volume 9.3 FL (9.5-12.2); Monocytes # (A) 0.86 X 10*3/uL (0.20-1.00); Monocytes % (A) 8.3 %; NRBC Per 100 WBC 0 X 10*3/uL (0.00-0.01); Neutrophils # (A) 6.67 X 10*3/uL (1.80-7.70); Neutrophils % (A) 64.8 %; Platelet Count 170 X 10*3/uL (140-440); RBC 4.47 X 10*6/uL (4.40-5.60); RDW 12.6 % (11.5-14.5)
[2024-02-13 16:03] LABS: % Iron Saturation 42.69 (15.00-50.00); ALT 23 U/L (10-49); AST 28 U/L (14-35); Albumin 4.3 g/dL (3.8-4.9); Albumin/Globulin Ratio 1.87 Ratio (1.60-3.17); Alkaline Phosphatase 84 U/L (41-126); BUN/Creat Ratio 30.72 Ratio (12.00-20.00); Blood Urea Nitrogen 55.3 mg/dL (9.0-27.0); Calcium 9.5 mg/dL (8.7-10.3); Carbon Dioxide 27.9 mmol/L (21.6-31.8); Chloride 91 mmol/L (96-109); Chol/HDL Ratio 2.95 Ratio; Creatine Kinase 77 U/L (35-257); Globulin 2.3 g/dL (1.6-3.3); Glucose 108 mg/dL (70-110); Iron 149 UG/DL (65-175); LDL Cholesterol,Calculated 109.3 mg/dL (0.0-131.0); Magnesium 2.7 mg/dL (1.5-2.4); Potassium 3.8 mmol/L (3.5-5.5); Sodium 133 mmol/L (135-145); Total Bilirubin 0.8 mg/dL (0.3-1.2); Total Iron Binding Capacity 349 UG/DL (228-460); Total Protein 6.6 g/dL (6.2-8.2); Uric Acid 11.4 mg/dL (3.7-8.7); VLDL Calculation 16.86 mg/dL (5.00-40.00)
[2024-02-13 16:33] LABS: Appearance,Urine Clear (Clear); Bilirubin,Urine Negative (Negative); Blood,Urine Negative (Negative); Color,Urine Yellow (Yellow); Ketones,Urine Negative (Negative); Nitrite,Urine Negative (Negative); PH, Urine 6.5; Specific Gravity,Urine 1.007 (1.001-1.030); Urobilinogen,Urine 0.2 E.U./DL
[2024-02-13 19:31] LABS: NT-Pro-B-Type Natriuretic Pept 1752 pg/mL (0-125)
== END | disposition home or self-care (01) ==
LOC: LABWHC1 09:05
PROVIDERS: ATTEND Internal Medicine Cardiovascular Disease
DX: E78.2 Mixed hyperlipidemia (principal); N18.32 Chronic kidney disease, stage 3b; I48.0 Paroxysmal atrial fibrillation; I42.8 Other cardiomyopathies; I50.9 Heart failure, unspecified
CPT/HCPCS: 36415; 80053; 80061; 81003; 82306; 82550; 82728; 83540; 83550; 83735; 83880; 83883; 83970; 84166; 84439; 84443; 84550; 85025

== ENCOUNTER → 2024-02-26 | Outpatient (CLI) | payer MEDICARE ==
[2024-02-26 15:15] LABS: ALT 20 U/L (10-49); AST 24 U/L (14-35); Albumin 4.4 g/dL (3.8-4.9); Alkaline Phosphatase 71 U/L (41-126); BUN/Creat Ratio 16.94 Ratio (12.00-20.00); Blood Urea Nitrogen 27.1 mg/dL (9.0-27.0); Calcium 9.3 mg/dL (8.7-10.3); Carbon Dioxide 28.1 mmol/L (21.6-31.8); Chloride 101 mmol/L (96-109); Globulin 2.2 g/dL (1.6-3.3); Glucose 102 mg/dL (70-110); Potassium 4.6 mmol/L (3.5-5.5); Sodium 141 mmol/L (135-145); Total Bilirubin 0.6 mg/dL (0.3-1.2); Total Protein 6.6 g/dL (6.2-8.2)
[2024-02-26 19:07] LABS: NT-Pro-B-Type Natriuretic Pept 4613 pg/mL (0-125)
== END | disposition home or self-care (01) ==
LOC: LABWHC1 08:31
PROVIDERS: ATTEND Internal Medicine Cardiovascular Disease
DX: D50.9 Iron deficiency anemia, unspecified (principal); D64.9 Anemia, unspecified; D86.85 Sarcoid myocarditis; I42.8 Other cardiomyopathies; I50.9 Heart failure, unspecified; I51.9 Heart disease, unspecified; D86.0 Sarcoidosis of lung
CPT/HCPCS: 36415; 80053; 83880

== ENCOUNTER → 2024-03-05 | Outpatient (CLI) | payer MEDICARE ==
--- NOTE | 2024-03-05 15:34 | US ---
EXAMINATION TYPE: US kidneys/renal and bladder DATE OF EXAM: 03/05/2024 COMPARISON: PET CT 2022 CLINICAL INDICATION: Male, 73 years old with history of N18.32 STAGE 3B CKD; Stage 3B chronic kidney disease. TECHNIQUE: Grayscale imaging of the bilateral kidneys and urinary bladder: FINDINGS: EXAM MEASUREMENTS: Right Kidney: 11.3 x 5.1 x 5.2 cm Left Kidney: 10.9 x 4.6 x 5.4 cm Right Kidney: No hydronephrosis or masses seen Left Kidney: No hydronephrosis or masses seen Bladder: Slightly limited due to gas/shadowing. *Question echogenic, solid area seen within the bladder, versus this could be prominence to the prost ate: 1.5 x 3.4 x 2.1 cm. Bilateral Jets seen: Yes IMPRESSION: 1. No evidence for obstructive uropathy. No renal calculi visualized. 2. Prostatomegaly correlate serum PSA. [facility], , 03/05/2024 3:32 PM
== END | disposition home or self-care (01) ==
LOC: RADUSWWP 14:30
PROVIDERS: ATTEND Internal Medicine
DX: N18.32 Chronic kidney disease, stage 3b (principal); N40.0 Benign prostatic hyperplasia without lower urinary tract symptoms
CPT/HCPCS: 76770

== ENCOUNTER → 2024-03-17 | Outpatient (CLI) | payer MEDICARE ==
[2024-03-17 11:17] LABS: ALT 24 U/L (10-49); AST 34 U/L (14-35); Albumin 4.3 g/dL (3.8-4.9); Albumin/Globulin Ratio 1.95 Ratio (1.60-3.17); Alkaline Phosphatase 75 U/L (41-126); BUN/Creat Ratio 17.67 Ratio (12.00-20.00); Blood Urea Nitrogen 26.5 mg/dL (9.0-27.0); Calcium 9.1 mg/dL (8.7-10.3); Carbon Dioxide 25.6 mmol/L (21.6-31.8); Chloride 101 mmol/L (96-109); Globulin 2.2 g/dL (1.6-3.3); Glucose 94 mg/dL (70-110); Potassium 4.2 mmol/L (3.5-5.5); Sodium 140 mmol/L (135-145); Total Bilirubin 0.3 mg/dL (0.3-1.2); Total Protein 6.5 g/dL (6.2-8.2)
[2024-03-17 17:00] LABS: NT-Pro-B-Type Natriuretic Pept 2336 pg/mL (0-125)
== END | disposition home or self-care (01) ==
LOC: LABWHC1 07:37
PROVIDERS: ATTEND Internal Medicine Cardiovascular Disease
DX: I50.20 Unspecified systolic (congestive) heart failure (principal); I42.8 Other cardiomyopathies; I50.9 Heart failure, unspecified; I51.9 Heart disease, unspecified
CPT/HCPCS: 36415; 80053; 83880

== ENCOUNTER → 2024-04-01 | Outpatient (CLI) | payer MEDICARE ==
[2024-04-01 16:03] LABS: ALT 23 U/L (10-49); AST 25 U/L (14-35); Albumin 4.2 g/dL (3.8-4.9); Alkaline Phosphatase 62 U/L (41-126); BUN/Creat Ratio 19.06 Ratio (12.00-20.00); Blood Urea Nitrogen 32.4 mg/dL (9.0-27.0); Calcium 9.3 mg/dL (8.7-10.3); Carbon Dioxide 26.6 mmol/L (21.6-31.8); Chloride 98 mmol/L (96-109); Glucose 99 mg/dL (70-110); Sodium 137 mmol/L (135-145); Total Bilirubin 0.4 mg/dL (0.3-1.2); Total Protein 6.2 g/dL (6.2-8.2)
[2024-04-01 19:55] LABS: NT-Pro-B-Type Natriuretic Pept 2251 pg/mL (0-125)
== END | disposition home or self-care (01) ==
LOC: LABWHC1 09:21
PROVIDERS: ATTEND Internal Medicine Cardiovascular Disease
DX: I50.20 Unspecified systolic (congestive) heart failure (principal); I42.8 Other cardiomyopathies; I50.9 Heart failure, unspecified; I51.9 Heart disease, unspecified; D50.9 Iron deficiency anemia, unspecified; D64.9 Anemia, unspecified; D86.85 Sarcoid myocarditis; D86.0 Sarcoidosis of lung
CPT/HCPCS: 36415; 80053; 83880

== ENCOUNTER → 2024-07-20 | Outpatient (CLI) | payer MEDICARE ==
[2024-07-20 11:01] LABS: NT-Pro-B-Type Natriuretic Pept 2298 pg/mL (0-125)
[2024-07-20 11:16] LABS: BUN/Creat Ratio 22.84 Ratio (12.00-20.00); Blood Urea Nitrogen 43.4 mg/dL (9.0-27.0); Calcium 9.1 mg/dL (8.7-10.3); Carbon Dioxide 22.5 mmol/L (21.6-31.8); Chloride 97 mmol/L (96-109); Glucose 113 mg/dL (70-110); Potassium 4.6 mmol/L (3.5-5.5); Sodium 134 mmol/L (135-145)
== END | disposition home or self-care (01) ==
LOC: LABWHC1 07:20
PROVIDERS: ATTEND Internal Medicine Cardiovascular Disease
DX: I50.9 Heart failure, unspecified (principal); I42.8 Other cardiomyopathies
CPT/HCPCS: 36415; 80048; 83880

== ENCOUNTER → 2024-08-31 | Outpatient (CLI) | payer MEDICARE ==
[2024-08-31 15:26] LABS: BUN/Creat Ratio 12.88 Ratio (12.00-20.00); Blood Urea Nitrogen 21.9 mg/dL (9.0-27.0); Calcium 8.6 mg/dL (8.7-10.3); Carbon Dioxide 22.6 mmol/L (21.6-31.8); Chloride 99 mmol/L (96-109); Glucose 93 mg/dL (70-110); Potassium 4.8 mmol/L (3.5-5.5); Sodium 137 mmol/L (135-145)
[2024-08-31 17:31] LABS: NT-Pro-B-Type Natriuretic Pept 2282 pg/mL (0-125)
== END | disposition home or self-care (01) ==
LOC: LABWHC1 08:26
PROVIDERS: ATTEND Internal Medicine Cardiovascular Disease
DX: I42.8 Other cardiomyopathies (principal); D50.9 Iron deficiency anemia, unspecified; D64.9 Anemia, unspecified; D86.85 Sarcoid myocarditis; D86.0 Sarcoidosis of lung; R73.09 Other abnormal glucose
CPT/HCPCS: 36415; 80048; 83880

== ENCOUNTER → 2024-09-28 | Outpatient (CLI) | payer MEDICARE ==
[2024-09-28 17:18] LABS: Anion Gap 12.70 mmol/L (4.00-12.00); BUN/Creat Ratio 16.95 Ratio (12.00-20.00); Blood Urea Nitrogen 33.9 mg/dL (9.0-27.0); Calcium 9.6 mg/dL (8.7-10.3); Carbon Dioxide 28.3 mmol/L (21.6-31.8); Chloride 100 mmol/L (96-109); Glucose 97 mg/dL (70-110); Potassium 4.7 mmol/L (3.5-5.5); Sodium 141 mmol/L (135-145)
[2024-09-28 17:19] LABS: NT-Pro-B-Type Natriuretic Pept 3034 pg/mL (0-125)
== END | disposition home or self-care (01) ==
LOC: LABWHC1 11:04
PROVIDERS: ATTEND Internal Medicine Cardiovascular Disease
DX: I50.20 Unspecified systolic (congestive) heart failure (principal)
CPT/HCPCS: 36415; 80048; 83880